=== PATIENT | female | born 1950 | race Caucasian/White ===

== ENCOUNTER 2017-11-29 15:26 | Inpatient (IN) | payer BC, OTHER ==
[~2017-11-29] VITALS: Ht 160 cm; Wt 79.5 kg
[2017-11-29] VITALS (8 sets, daily range): BP systolic 98–123; BP diastolic 60–72; PULSE 107–112; TEMP 36.7; O2SAT 88–98; BMI 29.8
[~2017-11-29 15:26] MED LIST: ADVIN25050 INH; ATOR-26 PO; BUPRTAB51 PO; CALC-354 PO; CLBCRM30 TOP; CMBIN INH; EFFSR150 PO; KETO2SHA TOP; LSN20 PO; METR1GEL3 TOP; MULT-506 PO; OXGN; PRED1SUS3; PRLSR20 PO; SNG10 PO; TIOTCAP INH; TRAZ50TA35 PO; TRIA0.1C20 TOP
[2017-11-29] MEDS ORDERED: ALBUT/IPRATROP 3MG/0.5MG NEB 3 ML VIAL INH STA (15:37)
[2017-11-29] MEDS ORDERED: SODIUM CHLORIDE 0.9% 1000ML 1,000 ML IV STA (15:52)
[2017-11-29] MEDS ORDERED: PIPERACILLIN/TAZOBACTAM 4.5 GM/100ML D5W IV STA (16:15)
[2017-11-29] MEDS ORDERED: SODIUM CHLORIDE 0.9% 1000ML 2,000 ML IV STA (16:20)
[2017-11-29] MEDS ORDERED: LEVAQUIN 750MG / 150ML D5W IV STA (16:20)
[2017-11-29 16:38] LABS: HEMATOCRIT 40.1 % (37-47); HEMOGLOBIN 13.9 g/dL (12.0-16.0); MEAN CELL VOLUME 89.9 fL (80-100); MEAN CORPUSCULAR HEMOGLOBIN 31.2 pg (25-34); MEAN CORPUSCULAR HGB CONC 34.7 g/dl (32-36); MEAN PLATELET VOLUME 10.8 fL (7.4-10.4); PLATELET COUNT 306 K/uL (130-400); RED CELL DISTRIBUTION WIDTH CV 13.6 % (11.5-14.5); RED CELL DISTRIBUTION WIDTH SD 44.7 fL (36.4-46.3); WHITE BLOOD COUNT 34.46 K/uL (4.8-10.8)
--- NOTE | 2017-11-29 16:38 | DIAGNOSTIC IMAGING REPORT ---
CHEST ONE VIEW PORTABLE HISTORY: 67 years-old Female cough eval for pna acute cough with concern for pneumonia COMPARISON: Chest radiograph 11/24/2008, chest CT 12/11/2008 TECHNIQUE: Portable AP view of the chest FINDINGS: Cardiac silhouette is mildly enlarged. Atherosclerosis of the aorta. There is mild bilateral interstitial coarsening without pneumothorax. Large segmental consolidation of the right lung base is noted with associated likely small right pleural effusion. Bones of the chest appear grossly intact. Degenerative changes are seen within the shoulders and spine. IMPRESSION: 1. Large consolidation of the right lung base with right pleural effusion suggests possible pneumonia. Close follow-up is needed to document resolution. 2. Mild bilateral interstitial coarsening suggests pulmonary vascular congestion. The above report was generated using voice recognition software. It may contain grammatical, syntax or spelling errors. Electronically signed by: Bg Buckner M.D. 11/29/2017 4:37 PM Dictated Date/Time: 11/29/2017 4:31 PM
[2017-11-29 16:39] LABS: ALBUMIN 2.3 gm/dl (3.4-5.0); ALKALINE PHOSPHATASE 289 U/L (45-117); ALT/SGPT 58 U/L (12-78); AST/SGOT 38 U/L (15-37); BLOOD UREA NITROGEN 17 mg/dl (7-18); CALCIUM 8.2 mg/dl (8.5-10.1); CARBON DIOXIDE 28 mmol/L (21-32); CREATININE 1.57 mg/dl (0.60-1.20); GLUCOSE 94 mg/dl (70-99); POTASSIUM 3.8 mmol/L (3.5-5.1); SODIUM 130 mmol/L (136-145); TOTAL PROTEIN 6.2 gm/dl (6.4-8.2)
[2017-11-29 17:01] LABS: INFLUENZA A PCR Neg for Influ A (NEG); INFLUENZA B PCR Neg for Influ B (NEG)
[2017-11-29] MEDS ORDERED: [UNRECOGNIZED DRUG - CODE] TOP (17:03)
[2017-11-29] MEDS ORDERED: BUPR150T5 PO ×2 (17:03→17:30)
[2017-11-29] MEDS ORDERED: PRMVC PV (17:03)
[2017-11-29] MEDS ORDERED: SNG10 PO (17:03)
[2017-11-29] MEDS ORDERED: ATV/1 PO (17:03)
[2017-11-29] MEDS ORDERED: MTRG45 TOP (17:03)
[2017-11-29] MEDS ORDERED: EFFSR150 PO (17:03)
[2017-11-29] MEDS ORDERED: LISD30CA4 PO (17:03)
[2017-11-29] MEDS ORDERED: IBUP-103 PO ×2 (17:03)
[2017-11-29] MEDS ORDERED: SPRIN/30 INH (17:03)
[2017-11-29] MEDS ORDERED: ASPI81TA28 PO (17:03)
[2017-11-29] MEDS ORDERED: ADVIN25/60 PO (17:03)
[2017-11-29] MEDS ORDERED: IPRA1AER2 INH (17:03)
[2017-11-29] MEDS ORDERED: FLNIN/ NAE (17:03)
[2017-11-29] MEDS ORDERED: IPRASOL4 INH (17:03)
[2017-11-29] MEDS ORDERED: DSY100 PO (17:03)
[2017-11-29] MEDS ORDERED: ALL100 PO (17:03)
[2017-11-29] MEDS ORDERED: LPT10 PO (17:03)
[2017-11-29] MEDS ORDERED: TRMO115 TOP (17:03)
[2017-11-29] MEDS ORDERED: LISI40TA PO (17:04)
[2017-11-29 17:13] LABS: INR 1.2 (0.9-1.1); PTT PATIENT 33.3 SECONDS (21.0-31.0)
[2017-11-29] MEDS ORDERED: ONDANSETRON INJ 2 MG/ML 2 ML VIAL IV PRN (17:30)
[2017-11-29] MEDS ORDERED: LEVOFLOXACIN / D5W 750 MG in PREMIXED IN D5W 150 ML IV SCH (17:30)
[2017-11-29] MEDS ORDERED: NITROGLYCERIN 0.4 MG SL PER TAB CHARGE SL PRN (17:30)
[2017-11-29] MEDS ORDERED: IPRATROPIUM BROMIDE NEB SOLN 0.02% 2.5 ML VIAL INH PRN (17:30)
[2017-11-29] MEDS ORDERED: LEVALBUTEROL 1.25MG/3ML NEB INH PRN (17:30)
[2017-11-29] MEDS ORDERED: ICU PROTOCOL FOR HYPERGLYCEMIA PRN (17:30)
[2017-11-29] MEDS ORDERED: SODIUM CHLORIDE 0.9% 1000ML 1,000 ML IV SCH (18:00)
[2017-11-29] MEDS ORDERED: PIPERACILL/TAZOBAC CONSULT ACTIVE PRN (18:15)
[2017-11-29] MEDS: LEVALBUTEROL 1.25MG/0.5ML NEB INH SCH (18:53)
[2017-11-29] MEDS: IPRATROPIUM BROMIDE NEB SOLN 0.02% 2.5 ML VIAL INH SCH (18:53)
--- NOTE | 2017-11-29 19:04 | EMERGENCY ROOM VISIT NOTE ---
History Report prepared by Orquidea: Vipul Wall Under the Supervision of: Dr. Humza Pak M.D. First contact with patient: 15:31 Stated Complaint: FLU SYMPTOMS History of Present Illness The patient is a 67 year old female who presents to the Emergency Room with complaints of persistent flu like symptoms for the past 5 days. The patient states that she has a fever, cough, body aches, and a headache. She states her headache is improved since it started 5 days ago. Her body pains are also improved. She is bringing up clear phlegm while coughing. Per the EMS, the patient's heart rates is in the 110s, her blood pressure was in the 80s, her pulse ox was 90% on 4L of oxygen, and her fingertips looked cyanotic. The patient states that she has a history of asthma and COPD, and she is currently a smoker. She uses oxygen at home as needed, and she uses 3-4L. Source of History: patient Onset: 5 days ago Position: other (global) Quality: other (flu like symptoms) Timing: other (persistent) Associated Symptoms: + fevers, + headache, + cough Note: Associated symptoms: Body aches. Review of Systems See HPI for pertinent positives & negatives. A total of 10 systems reviewed and were otherwise negative. Past Medical & Surgical Medical Problems: (1) Asthma (2) COPD (chronic obstructive pulmonary disease) (3) Severe sepsis Social History Smoking Status: Current Every Day Smoker Marital Status: Occupation Status: retired Current/Historical Medications Scheduled Allopurinol (Allopurinol), 100 MG PO DAILY Aspirin (Aspirin Ec), 81 MG PO DAILY Atorvastatin (Lipitor), 10 MG PO DAILY Bupropion Hcl (Bupropion Hcl Xl), 150 MG PO DAILY Calcium Carbonate-Cholecalcife (Caltrate 600+D), 1 TAB PO QAM Clobetasol Propionate (Clobetasol Propionate), 1 APPLN TOP UD Estrogens, Conjugated (Premarin), 1 APPLN PV HS Fluticasone Prop/Salmeterol (Advair Diskus 250/50 60 Dose), 1 PUFF PO BID Fluticasone Propionate (Fluticasone Propionate), 2 SPRAYS ROLDAN DAILY Home O2 Therapy (Oxygen), 2 LITERS NA PRN Ibuprofen Tab (Advil), 400 MG PO PRN UD Ipratropium-Albuterol (Combivent Respimat), 1 PUFF INH BID Lisdexamfetamine Dimesylate (Vyvanse), 30 MG PO DAILY Metronidazole HCl (Metronidazole), 1 APPLN TOP BID Montelukast Sod (Montelukast Sodium), 10 MG PO DAILY Multivitamin (Multivitamin), 1 TAB PO QAM Tiotropium [place] (Spiriva Handihaler), 1 CAP INH DAILY Trazodone HCl (Trazodone HCl), 100 MG PO HS Venlafaxine Hcl (Effexor Extended Rel), 150 MG PO BID Scheduled PRN Ipratropium-Albuterol (Duoneb), 1 TREATMENT INH QID PRN for SOB/Wheezing Ketoconazole (Topical) (Ketoconazole), 1 APPL TOP DAILY PRN for Lorazepam (Ativan), 1 MG PO BID PRN for Anxiety Omeprazole (Prilosec), 20 MG PO DAILY PRN for ACID REFLUX Triamcinolone Acet (Triamcinolone Acetonide), 1 APPLN TOP 2XWK PRN for Allergies Coded Allergies: No Known Allergies (Verified , NKA, 12/06/14) Physical Exam Vital Signs Date Time Temp Pulse Resp B/P (MAP) Pulse Ox O2 Delivery O2 Flow Rate FiO2 11/29/17 16:42 102 18 84/64 100 Nasal Cannula 4.0 11/29/17 16:22 107 18 78/55 92 Nasal Cannula 4.0 11/29/17 15:45 110 11/29/17 15:44 36.4 112 24 77/53 93 Room Air Physical Exam Constitutional: Vital signs reviewed. Eyes: Pupils are equal round reactive to light. Conjunctiva are noninjected. ENT: Pharynx is clear without erythema or exudate. Mucous membranes are dry. Neck supple without meningeal signs. Respiratory: Scattered expiratory wheezing. Crackles at the right base with diminished breath sounds. Cardiovascular: Regular rate and rhythm. No rubs or gallops. GI: Soft, nondistended and nontender. Bowel sounds are present. Musculoskeletal: No peripheral edema. No lower extremity tenderness. Integumentary: No cyanosis. Neurological: The patient is awake and alert. No focal deficits. Psychiatric: Normal affect. Medical Decision & Procedures ER Provider Diagnostic Interpretation: Radiology results as stated below per my review and the radiologist's interpretation: CHEST ONE VIEW PORTABLE HISTORY: 67 years-old Female cough eval for pna acute cough with concern for pneumonia COMPARISON: Chest radiograph 11/24/2008, chest CT 12/11/2008 TECHNIQUE: Portable AP view of the chest FINDINGS: Cardiac silhouette is mildly enlarged. Atherosclerosis of the aorta. There is mild bilateral interstitial coarsening without pneumothorax. Large segmental consolidation of the right lung base is noted with associated likely small right pleural effusion. Bones of the chest appear grossly intact. Degenerative changes are seen within the shoulders and spine. IMPRESSION: 1. Large consolidation of the right lung base with right pleural effusion suggests possible pneumonia. Close follow-up is needed to document resolution. 2. Mild bilateral interstitial coarsening suggests pulmonary vascular congestion. The above report was generated using voice recognition software. It may contain grammatical, syntax or spelling errors. Electronically signed by: Bg Buckner M.D. 11/29/2017 4:37 PM Dictated Date/Time: 11/29/2017 4:31 PM Laboratory Results 11/29/17 15:48 Red Blood Count 4.46, Mean Corpuscular Volume 89.9, Mean Corpuscular Hemoglobin 31.2, Mean Corpuscular Hemoglobin Concent 34.7, Mean Platelet Volume 10.8 11/29/17 15:48 Test 11/29/17 00:00 11/29/17 15:48 11/29/17 16:03 11/29/17 16:20 White Blood Count 34.46 K/uL (4.8-10.8) Red Blood Count 4.46 M/uL (4.2-5.4) Hemoglobin 13.9 g/dL (12.0-16.0) Hematocrit 40.1 % (37-47) Mean Corpuscular Volume 89.9 fL (80-100) Mean Corpuscular Hemoglobin 31.2 pg (25-34) Mean Corpuscular Hemoglobin Concent 34.7 g/dl (32-36) Platelet Count 306 K/uL (130-400) Mean Platelet Volume 10.8 fL (7.4-10.4) RDW Standard Deviation 44.7 fL (36.4-46.3) RDW Coefficient of Variation 13.6 % (11.5-14.5) Neutrophils % (Manual) 85.8 % Lymphocytes % (Manual) 1.7 % Monocytes % (Manual) 2.5 % Metamyelocytes % 9.2 % Myelocytes % 0.8 % Neutrophils # (Manual) 29.57 K/uL (1.4-6.5) Total Absolute Neutrophils 29.57 K/uL (1.4-6.5) Lymphocytes # (Manual) 0.59 K/uL (1.2-3.4) Total Absolute Lymphocytes 0.59 K/uL (1.2-3.4) Monocytes # (Manual) 0.86 K/uL (0.11-0.59) Metamyelocytes # 3.17 K/uL (0-0) Myelocytes # 0.28 K/uL (0-0) Toxic Granulation 2+ Anion Gap 12.0 mmol/L (3-11) Est Creatinine Clear Calc Drug Dose 34.0 ml/min Estimated GFR () 39.1 Estimated GFR (Non- 33.8 BUN/Creatinine Ratio 10.7 (10-20) Calcium Level 8.2 mg/dl (8.5-10.1) Total Bilirubin 1.1 mg/dl (0.2-1) Aspartate Amino Transf (AST/SGOT) 38 U/L (15-37) Alanine Aminotransferase (ALT/SGPT) 58 U/L (12-78) Alkaline Phosphatase 289 U/L (45-117) Troponin I < 0.015 ng/ml (0-0.045) Total Protein 6.2 gm/dl (6.4-8.2) Albumin 2.3 gm/dl (3.4-5.0) Chemistry Specimen Hemolysis Bedside Lactic Acid Venous 5.22 mmol/L (0.90-1.70) Influenza Type A (RT-PCR) Neg for Influ A (NEG) Influenza Type B (RT-PCR) Neg for Influ B (NEG) Test 11/29/17 16:38 Prothrombin Time 12.6 SECONDS (9.0-12.0) Prothromb Time International Ratio 1.2 (0.9-1.1) Activated Partial Thromboplast Time 33.3 SECONDS (21.0-31.0) Partial Thromboplastin Ratio 1.3 Direct Bilirubin 0.4 mg/dl (0-0.2) Laboratory results as reviewed by me. Medications Administered Medications (Trade) Dose Ordered Sig/Debo Route Start Time Stop Time Status Last Admin Dose Admin Albuterol/ Ipratropium (Duoneb) 3 ml NOW STAT INH 11/29/17 15:37 11/29/17 15:39 DC 11/29/17 16:37 3 ML Sodium Chloride 1,000 ml @ 999 mls/hr Q1H1M STAT IV 11/29/17 15:52 11/29/17 16:52 DC 11/29/17 16:00 999 MLS/HR Piperacillin Sod/ Tazobactam Sod (Zosyn Iv) 4.5 gm NOW STAT IV 11/29/17 16:15 11/29/17 16:16 DC 11/29/17 16:25 4.5 GM Sodium Chloride 2,000 ml @ 999 mls/hr Q2H1M STAT IV 11/29/17 16:20 11/29/17 18:20 DC 11/29/17 16:38 999 MLS/HR Levofloxacin (Levaquin / D5W) 750 mg NOW STAT IV 11/29/17 16:20 11/29/17 16:22 DC 11/29/17 16:37 750 MG ECG Per My Interpretation Indication: SOB/dyspnea Rate (beats per minute): 108 Rhythm: sinus tachycardia Findings: other (No ST elevations or PVCs) ED Course 1531: The patient was evaluated in room A2. A complete history and physical exam was performed. 1537: DuoNeb 3ml INH 1552: Sodium Chloride 1000 ml @ 999 mls/hr IV 1556: I reevaluated the and her pressure was 84 systolic. She is getting her liter bolus. 1615: Zosyn 4.5gm IV 1619: I reassessed the patient, and her pressure was 75/52. 1620: Levofloxacin 750mg IV, Sodium Chloride 2000 ml @ 999 mls/hr IV 1639: I discussed the possibility of a central line if she did not respond to fluids, and I discussed the risks and benefits with her. 1642: Her pressure was 84, and she got an itchy rash to the Levaquin infusion, so it was stopped. 1646: I discussed the patient's case with Dr. Torres - [facility] Hospitalist. He is going to evaluate the patient for further treatment and contact the ICU team 1723: I reevaluated the patient, and her pressure was 81/57. She was seen by Dr. Torres, and he states that the patient does not need a central line. He will continue to monitor her in the ICU. She got her 30cc per kilo os normal saline. Medical Decision This is a 67-year-old female presents with shortness of breath and flulike symptoms. Differential diagnosis includes sepsis, pneumonia, bronchitis, influenza, COPD exacerbation. I did perform a limited focused review of portions of the patient's old chart on the electronic medical record. The patient has had no recent pertinent visits to this hospital. I did evaluate the patient as noted above. The patient is presenting with shortness of breath and flulike symptoms. IV access was established. The patient was placed on a continuous surveillance monitor. She is hypotensive. Fluid resuscitation was initiated. He was given a total of 30 cc/kg IV of normal saline. Blood cultures were obtained. I did order and personally review the patient's 12-lead EKG and chest x-ray as described above. She does have a right -sided pneumonia. I did treat her with IV Zosyn and Levaquin. Patient developed a reaction to Levaquin. She had a rash to the arm orifice infusing which was itchy. The Levaquin was stopped. She did receive the Zosyn. I did order and review the patient's blood work as noted in the electronic medical record. Her white blood cell count is significantly elevated. She also has an elevated lactic acid. She was treated with a DuoNeb as well. I did reassess the patient multiple times. I did discuss the test results with her. I did discuss the case with the hospitalist who admitted her to the ICU. Medication Reconcilliation Current Medication List: was personally reviewed by me Blood Pressure Screening Patient's blood pressure: Low blood pressure Consults Time Called: 1642 Consulting Physician: Dr. Melissa Chavez Hospitalist Returned Call: [phone] I discussed the patient's case with Dr. Melissa Guzman. He is going to evaluate the patient for further treatment and contact the ICU team. Impression Primary Impression: Sepsis Additional Impressions: Septic shock Pneumonia involving right lung COPD exacerbation Critical Care I have personally spent greater than 43 minutes of critical care time in the direct management of this patient. This includes bedside care, interpretation of diagnostic studies, and testing, discussion with consultants, patient, and family members, and other required patient management activities. This 43 minutes is in excess of all separately billable procedures. Scribe Attestation The scribe's documentation has been prepared under my direct and personally reviewed by me in its entirety. I confirm that the note above accurately reflects all work, treatment, procedures, and medical decision making performed by me. Departure Information Dispostion Being Evaluated By Hospitalist Prescriptions Bupropion Hcl (BUPROPION HCL XL) 150 Mg Tab 150 MG PO DAILY, #30 Prov: Nikolay Torres MD 11/29/17 Referrals Tesfaye Zuniga D.O. (PCP) Problem Qualifiers Primary Impression: Sepsis Sepsis type: sepsis due to unspecified organism Qualified Codes: A41.9 - Sepsis, unspecified organism Additional Impressions: Pneumonia involving right lung Pneumonia type: due to unspecified organism Lung location: lower lobe of lung Qualified Codes: J18.1 - Lobar pneumonia, unspecified organism
--- NOTE | 2017-11-29 19:16 | Critical Care Consultation ---
Critical Care Consultation Date of Consultation: Nov 29, 2017. Attending Physician: Nikolay Torres MD Reason for Consultation: Sepsis secondary to PNA History of Present Illness Mirna Cronin is a 67yo female with CKD III, HTN, and severe COPD on PRN home O2 ( 3-4L) who presented to the ED after a week of progressive illness. Pt states about a week ago she began feeling viral symptoms fever, chills, headache and muscle aches. About Thursday of this week these symptoms improved. However, after about a day she began using her respiratory regimen and requiring more O2 at home and feeling more fatigued. Pt does have productive cough most clear to yellow with occasional red spots in it. She came in today after feeling like she wasn't capable of getting out of bed this morning. She was found to have a lactic acid of 5.22, WBC 34.46, Gap 12, Cr 1.57, and multiple LFT disturbances. Repeat lactic acid after resuscitation was 3.2. In the ED pt was tachycardic with HR in the one teens. She required 4L nasal cannula to hold 90% SpO2. SBP was in the 80s. Per ED report, pts digits appeared cyanotic. Pt received Duoneb, , 3L NSS Bolus, and Zosyn. Pt was started on Levaquin that was stopped shortly after administration due to drug reaction at IV site (Red, itchy rash). CXR demonstrated large right lower lobe consolidation with pleural effusion. Pt was admitted to the ICU and started on Doxycycline. The patient denies weight loss, dizziness, numbness, change in vision, sore throat, chest pain, palpitations, awareness of tachyarrhythmias, leg swelling, nausea, vomiting, bloody stools, diarrhea, constipation, abdominal pain. Urine has been more concentrated with an odor lately, but no dysuria, urgency, or frequency noted. Past Medical/Surgical History Medical Problems: Asthma COPD (chronic obstructive pulmonary disease) Dyslipidemia Severe sepsis CKD III HTN Rosacea Lichen GERD Gouty Arthropathy Benign neoplasm of the colon Surgical History: Colonoscopy Right MOD. Radical mastoidectomy 1963 Right type III tympanoplasty with malleus head and plastic middle ear insert 1974 Social History Smoking Status: Current Every Day Smoker Marital Status: Occupation Status: retired Allergies Coded Allergies: No Known Allergies (Verified , NKA, 12/06/14) Home Medications Scheduled Allopurinol (Allopurinol), 100 MG PO DAILY Aspirin (Aspirin Ec), 81 MG PO DAILY Atorvastatin (Lipitor), 10 MG PO DAILY Bupropion Hcl (Bupropion Hcl Xl), 150 MG PO DAILY Calcium Carbonate-Cholecalcife (Caltrate 600+D), 1 TAB PO QAM Clobetasol Propionate (Clobetasol Propionate), 1 APPLN TOP UD Estrogens, Conjugated (Premarin), 1 APPLN PV HS Fluticasone Prop/Salmeterol (Advair Diskus 250/50 60 Dose), 1 PUFF PO BID Fluticasone Propionate (Fluticasone Propionate), 2 SPRAYS ROLDAN DAILY Home O2 Therapy (Oxygen), 2 LITERS NA PRN Ibuprofen Tab (Advil), 400 MG PO PRN UD Ipratropium-Albuterol (Combivent Respimat), 1 PUFF INH BID Lisdexamfetamine Dimesylate (Vyvanse), 30 MG PO DAILY Metronidazole HCl (Metronidazole), 1 APPLN TOP BID Montelukast Sod (Montelukast Sodium), 10 MG PO DAILY Multivitamin (Multivitamin), 1 TAB PO QAM Tiotropium [place] (Spiriva Handihaler), 1 CAP INH DAILY Trazodone HCl (Trazodone HCl), 100 MG PO HS Venlafaxine Hcl (Effexor Extended Rel), 150 MG PO BID Scheduled PRN Ipratropium-Albuterol (Duoneb), 1 TREATMENT INH QID PRN for SOB/Wheezing Ketoconazole (Topical) (Ketoconazole), 1 APPL TOP DAILY PRN for Lorazepam (Ativan), 1 MG PO BID PRN for Anxiety Omeprazole (Prilosec), 20 MG PO DAILY PRN for ACID REFLUX Triamcinolone Acet (Triamcinolone Acetonide), 1 APPLN TOP 2XWK PRN for Current Inpatient Medications Current Inpatient Medications Medications (Trade) Dose Ordered Sig/Debo Route Start Time Stop Time Status Last Admin Dose Admin Heparin Sodium (Porcine) (Heparin Sq 5000 Unit/0.5ml) 5,000 unit Q8 SQ 11/29/17 18:30 12/29/17 18:29 Sodium Chloride 1,000 ml @ 500 mls/hr Q2H IV 11/29/17 18:00 11/29/17 19:59 11/29/17 18:37 500 MLS/HR Acetaminophen (Tylenol Tab) 650 mg Q4H PRN PO 11/29/17 17:30 12/29/17 17:29 Nitroglycerin (Nitrostat Tab) 0.4 mg UD PRN SL 11/29/17 17:30 12/29/17 17:29 Ipratropium [place] (Atrovent 0.02% 0.5MG/2.5ML Neb) 0.5 mg Q2R PRN INH 11/29/17 17:30 12/29/17 17:29 Levalbuterol (Xopenex 1.25MG/ 3ML Neb) 1.25 mg Q2R PRN INH 11/29/17 17:30 12/29/17 17:29 Ondansetron HCl (Zofran Inj) 4 mg Q6H PRN IV 11/29/17 17:30 12/29/17 17:29 Pantoprazole Sodium 40 mg/ Syringe 10 ml @ 5 mls/min DAILY IV 11/30/17 09:00 12/30/17 08:59 Levalbuterol (Xopenex 1.25MG/ 0.5ML Neb) 1.25 mg QIDR INH 11/29/17 20:00 12/29/17 19:59 11/29/17 18:53 1.25 MG Ipratropium [place] (Atrovent 0.02% 0.5MG/2.5ML Neb) 0.5 mg QIDR INH 11/29/17 20:00 12/29/17 19:59 11/29/17 18:53 0.5 MG Miscellaneous Information (Icu Protocol For Hyperglycemia) 1 ea PRN PRN N/A 11/29/17 17:30 12/01/17 17:29 Allopurinol (Zyloprim Tab) 100 mg DAILY PO 11/30/17 09:00 12/30/17 08:59 Aspirin (Ecotrin Tab) 81 mg DAILY PO 11/30/17 09:00 12/30/17 08:59 Atorvastatin Calcium (Lipitor Tab) 10 mg DAILY PO 11/30/17 09:00 12/30/17 08:59 Lorazepam (Ativan Tab) 1 mg BID PRN PO 11/29/17 17:30 12/29/17 17:29 Metronidazole HCl (Metrogel Topical Gel) 1 appln BID TOP 11/29/17 21:00 12/09/17 20:59 Montelukast Sodium (Singulair Tab) 10 mg DAILY PO 11/30/17 09:00 12/30/17 08:59 Multivitamins (Multivitamin Tab) 1 tab QAM PO 11/30/17 09:00 12/30/17 08:59 Trazodone HCl (Desyrel Tab) 100 mg HS PO 11/29/17 21:00 12/29/17 20:59 Venlafaxine HCl (effeXOR EXTENDED REL CAP) 150 mg BID PO 11/29/17 21:00 12/29/17 20:59 Miscellaneous Information (Order Awaiting Action) 1 ea QS N/A 11/30/17 00:00 12/30/17 00:00 Bupropion HCl (Wellbutrin-Xl Tab) 150 mg DAILY PO 11/30/17 09:00 12/30/17 08:59 Sodium Chloride 1,000 ml @ 200 mls/hr Q5H IV 11/29/17 19:00 12/29/17 18:59 Piperacillin Sod/ Tazobactam Sod 4.5 gm/Dextrose 120 ml @ 28.75 mls/ hr Q8H IV 11/29/17 22:00 12/09/17 15:59 Miscellaneous Information (Consult) 1 ea UD PRN N/A 11/29/17 18:15 12/29/17 18:14 Doxycycline Hyclate 100 mg/ Dextrose 110 ml @ 50 mls/hr BID IV 11/29/17 18:30 12/06/17 18:29 Future hold Nicotine (Nicoderm Cq 14MG Patch) 1 patch QAM TD 11/30/17 09:00 12/30/17 08:59 Miscellaneous (Remove Nicoderm Patch) 1 ea HS N/A 11/30/17 21:00 12/30/17 20:59 Review of Systems 12 systems reviewed and negative other than previously mentioned in the HPI. Physical Exam Date Time Temp Pulse Resp B/P (MAP) Pulse Ox O2 Delivery O2 Flow Rate FiO2 11/29/17 18:35 36.7 109 32 118/65 98 Nasal Cannula 2.0 11/29/17 18:07 102 18 84/59 98 11/29/17 17:45 105 18 83/60 100 Nasal Cannula 4.0 11/29/17 16:42 102 18 84/64 100 Nasal Cannula 4.0 11/29/17 16:22 107 18 78/55 92 Nasal Cannula 4.0 11/29/17 15:45 110 11/29/17 15:44 36.4 112 24 77/53 93 Room Air Vital Signs - as noted Laboratory Data - as noted Physical Exam: General - NAD Eyes - PERRL, EOMI No icterus, gaze conjugate ENT - Mucosa dry, no lesions or candidiasis Neck - Supple, trachea midline, no masses or lymphadenopathy, no JVD or bruits Lungs - Tachypneic No paradoxical chest wall movement, clear to auscultation bilaterally, diminished at right base, no wheezes, rales, or rhonchi Heart - Sinus Tachycardia, No murmur, rubs, clicks, or gallops appreciated Abdomen - minimal BS present, no bruits noted, tympanic to percussion, soft, nontender, nondistended, no organomegaly Extremities - No edema, pedal pulses intact Neuro - A&OX4 Strength extremities equal and appropriate bilaterally Reflexes: Bicep, brachioradialis, patellar, and plantar normal and equal CN:PERRL, EOMI, no facial asymmetry, uvula/tongue midline Laboratory Results Last 24 Hours Test 11/29/17 00:00 11/29/17 15:48 11/29/17 16:03 11/29/17 16:20 Urine Color DK YELLOW Urine Appearance CLOUDY Urine pH 5.0 Urine Specific [place] 1.011 Urine Protein NEG Urine Glucose (UA) NEG Urine Ketones NEG Urine Occult Blood NEG Urine Nitrite POS Urine Bilirubin NEG Urine Urobilinogen NEG Urine Leukocyte Esterase MODERATE Urine WBC (Auto) /hpf Urine RBC (Auto) /hpf Urine Hyaline Casts (Auto) /lpf Urine Epithelial Cells (Auto) /lpf Urine Bacteria (Auto) Urine Renal Epithelial Cells /lpf Urine Pathogenic Casts /lpf White Blood Count 34.46 K/uL Red Blood Count 4.46 M/uL Hemoglobin 13.9 g/dL Hematocrit 40.1 % Mean Corpuscular Volume 89.9 fL Mean Corpuscular Hemoglobin 31.2 pg Mean Corpuscular Hemoglobin Concent 34.7 g/dl Platelet Count 306 K/uL Mean Platelet Volume 10.8 fL RDW Standard Deviation 44.7 fL RDW Coefficient of Variation 13.6 % Neutrophils % (Manual) 85.8 % Lymphocytes % (Manual) 1.7 % Monocytes % (Manual) 2.5 % Metamyelocytes % 9.2 % Myelocytes % 0.8 % Neutrophils # (Manual) 29.57 K/uL Total Absolute Neutrophils 29.57 K/uL Lymphocytes # (Manual) 0.59 K/uL Total Absolute Lymphocytes 0.59 K/uL Monocytes # (Manual) 0.86 K/uL Metamyelocytes # 3.17 K/uL Myelocytes # 0.28 K/uL Toxic Granulation 2+ Sodium Level 130 mmol/L Potassium Level 3.8 mmol/L Chloride Level 90 mmol/L Carbon Dioxide Level 28 mmol/L Anion Gap 12.0 mmol/L Blood Urea Nitrogen 17 mg/dl Creatinine 1.57 mg/dl Est Creatinine Clear Calc Drug Dose 34.0 ml/min Estimated GFR () 39.1 Estimated GFR (Non- 33.8 BUN/Creatinine Ratio 10.7 Random Glucose 94 mg/dl Calcium Level 8.2 mg/dl Total Bilirubin 1.1 mg/dl Direct Bilirubin mg/dl Aspartate Amino Transf (AST/SGOT) 38 U/L Alanine Aminotransferase (ALT/SGPT) 58 U/L Alkaline Phosphatase 289 U/L Troponin I < 0.015 ng/ml Total Protein 6.2 gm/dl Albumin 2.3 gm/dl Chemistry Specimen Hemolysis Bedside Lactic Acid Venous 5.22 mmol/L Influenza Type A (RT-PCR) Neg for Influ A Influenza Type B (RT-PCR) Neg for Influ B Test 11/29/17 16:38 Prothrombin Time 12.6 SECONDS Prothromb Time International Ratio 1.2 Activated Partial Thromboplast Time 33.3 SECONDS Partial Thromboplastin Ratio 1.3 Direct Bilirubin 0.4 mg/dl Diagnostic Results CHEST ONE VIEW PORTABLE HISTORY: 67 years-old Female cough eval for pna acute cough with concern for pneumonia COMPARISON: Chest radiograph 11/24/2008, chest CT 12/11/2008 TECHNIQUE: Portable AP view of the chest FINDINGS: Cardiac silhouette is mildly enlarged. Atherosclerosis of the aorta. There is mild bilateral interstitial coarsening without pneumothorax. Large segmental consolidation of the right lung base is noted with associated likely small right pleural effusion. Bones of the chest appear grossly intact. Degenerative changes are seen within the shoulders and spine. IMPRESSION: 1. Large consolidation of the right lung base with right pleural effusion suggests possible pneumonia. Close follow-up is needed to document resolution. 2. Mild bilateral interstitial coarsening suggests pulmonary vascular congestion. The above report was generated using voice recognition software. It may contain grammatical, syntax or spelling errors. Electronically signed by: Bg Buckner M.D. 11/29/2017 4:37 PM Dictated Date/Time: 11/29/2017 4:31 PM Assessment & Plan (1) UTI (urinary tract infection) (2) Abnormal LFTs (3) Tachycardia (4) Septic shock (5) COPD exacerbation (6) Pneumonia involving right lung (7) TARA (acute kidney injury) (8) CKD (chronic kidney disease) stage 3, GFR 30-59 ml/min (9) Leukocytosis (10) Dyslipidemia (11) Hx of essential hypertension Reason Critically Ill: Patient is an 67-year-old female who is transferred to the ICU for septic shock in the setting of RLL PNA and UTI requiring chronic O2 to maintain adequate saturations. Lactic Acid greater than 5 and SBP in the 80s PLAN: Resp: * Patient does use 3-4 L as needed at home; however, has been using it chronically over the past few days of illness. * Severe COPD : goal SPO2 88-92%, titrate as indicated * Right lower lobe pneumonia * Patient is clearing sputum/expectorant, monitor for need of percussion * Will provide flutter valve * Continue Zosyn and doxycycline for pulmonary source; first day of treatment November 29 * Continue respiratory regimen including Xopenex and Atrovent * Continue home respiratory regimen including Singulair * Repeat CXR as needed Fluids/Renal: * TARA CKD III * Baseline Cr 1.1, today 1.5 * Continue fluid resuscitation; NSS @ 200 * Trend PRP daily * Limit Renally toxic medications * UTI: * Catheter UA demonstrates positive leukocytes esterase, positive nitrates, +1 bacteria * Reflex Culture ordered * Strict I&Os * Schmidt to gravity Neuro: * Continue home medications including * Effexor, Trazodone, Ativan, and Wellbutrin * Neuro checks per protocol * No pain reported, trend pain scale CV: * Sinus Tachycardia noted on telemetry * Continue to monitor in. Normal response in the setting of infection and hypotension * Troponin Neg x 1 * Reviewed EKG: without acute ischemia, QTC 455 * Monitor on telemetry * Hypotension: * in the setting of multiple infections * Aggressive fluid resuscitation > 30cc/kg * NSS @ 200 now * trending lactic acid * Resolved without need of vasopressors * SBP 110-120's currently * Continue Statin ID: * ABX: Zosyn and Doxycycline (first day of administration 11/29) * Started Levaquin and stopped 2/2 site reaction during administration * Lactic Acid improving * Monitor daily CBC * Trend fever curve GI/Nutrition: * Hx of GERD: Continue PPI * LFTs elevated in the setting of infection and hypotension * Repeat lab pending * Monitor Closely: Coags abnormal, Plts WNL * Pt without RUQ abd pain * Full liquid diet now, pts pressure hypotension resolved without need of vasopressors Heme: * PT/INR, PTT prolonged without use of anticoagulation medications chronically, plts WNL. * Will monitor; Repeat lab and trend * DVT Prophylaxis: SCDs and Heparin SQ ordered Endocrine: * No hx of DM * Accu-Checks per protocol, started insulin infusion for 2 blood sugars greater than 180 * No hx of Thyroid dz Access: Maintain 2 (18g) sites Critical Care Time: 60 Minutes; This time is exclusive of all separately billable procedures. Thank you for involving us in the care of this patient. Please refer to Dr. Romaine Oviedo's addendum for further recommendations. Problem Qualifiers (1) Pneumonia involving right lung: Pneumonia type: due to unspecified organism Lung location: lower lobe of lung Qualified Codes: J18.1 - Lobar pneumonia, unspecified organism
--- NOTE | 2017-11-29 19:43 | Progress Note ---
Progress Note Post Crystalloid Evaluation Date: Nov 29, 2017 Time: 19:40 Subjective resting comfortably feeling slightly better still sob denies any pain hemodynamics improving Physical Exam Vital Signs: Vital Signs Date Time Temp Pulse Resp B/P (MAP) Pulse Ox O2 Delivery O2 Flow Rate FiO2 11/29/17 18:35 36.7 109 32 118/65 98 Nasal Cannula 2.0 Lungs: chest non-tender, normal breath sounds, no accessory muscle use, + rhonchi Heart: no murmur, normal peripheral pulses, + tachycardia Peripheral Pulse: Normal Capillary Refill: Normal (less than 2 seconds) Skin: Unremarkable Assessment & Plan Presence of: Severe Sepsis severe sepsis Right sided pneumonia POC lactic acid 5 on presentation awaiting repeat lactic acid SBP on presentation in 70's BP improved after fluid resuscitation developed rash for levaquin on iv zosyn and doxycyline currently hemodynamics improving continue to monitor in ICU copd ex will give dose of solumedrol and monitor on nebs
--- NOTE | 2017-11-29 19:45 | HISTORY & PHYSICAL EXAMINATION ---
DATE OF ADMISSION: 11/29/2017 CHIEF COMPLAINT: Sepsis, pneumonia. HISTORY OF PRESENT ILLNESS: This is a 67-year-old female with past medical history significant for chronic kidney disease stage III, COPD severe, hypertension, gout, GERD, hyperlipidemia, history of tympanoplasty, history of prior radical mastoidectomy in 1962, history of rosacea presents with generalized weakness and found to be in severe sepsis/septic shock. The patient says since last Thursday, she was not feeling well, initially started with headaches and some mild fever that has gone but she has on and off right sided chest pain with generalized weakness, not feeling well and she came to the ER and found to be hypotensive and found to have pneumonia and severe sepsis. The patient denies any headache now. She was dizzy at home. Denies any blurred visions. No earache. No ear drainage. She has some nasal congestion, no sore throat, no difficulty swallowing. Has cough with whitish yellow phlegm. Denies any nausea, vomiting. Appetite is okay. No abdominal pain. Normal bowel and bladder movements. No blood in the urine, no blood in stool. No skin rash, no swelling in the legs. In the ER, while she was getting Levaquin, she developed rash and the Levaquin was stopped. The patient received Levaquin for several days in 2008 for COPD exacerbation. Currently resting comfortably and blood pressure is improving with IV fluids. ALLERGIES: No known allergies but possibly FOR Levaquin WITH RASH DEVELOPMENT . PAST MEDICAL HISTORY: As mentioned above. PAST SURGICAL HISTORY: Colonoscopy with biopsy. She had right mastectomy and right type 3 tympanoplasty. MEDICATIONS: The patient is on DuoNebs 4 times a day, aspirin enteric coated 81 mg p.o. daily, Lipitor 10 mg p.o. daily, Wellbutrin 150 mg p.o. daily, calcium carbonate, vitamin D tablet daily, Flonase 50 mcg 2 sprays into each nostril daily, Advil 400 mg at bedtime with food , multivitamin tablet daily, omeprazole 20 mg p.r.n., oxygen 2 liters via nasal cannula at night while sleeping, Spiriva 18 mcg inhalation daily, trazodone 100 mg p.o. daily, Vynase 30 mg p.o. daily, allopurinol 100 mg p.o. daily, Advair Diskus 250/50 mcg 1 puff b.i.d., Combivent Respimat 1 puff 4 times daily, Ativan 1 mg p.o. b.i.d. p.r.n., Singulair 10 mg p.o. daily. FAMILY HISTORY: Significant for mother had arthritis, cancer. Father had heart disorder and asthma. Father at age of 77. Mother at age of 51. SOCIAL HISTORY: Smokes 1 pack a day for last 33 years. No alcohol use, no drug use. REVIEW OF SYMPTOMS: As per HPI. Rest of review of systems negative. PHYSICAL EXAMINATION: GENERAL: The patient is of moderate build. Mild distress respiratory. VITAL SIGNS: Temperature 36.4, pulse 112, respiratory rate 24, blood pressure when she came in was 77/53, currently 84/64, oxygen 100% on 4 liters. HEENT: No pallor, no icterus. Pupils equal, round, and react to light. Oral mucosa dry. NECK: No JVD, no neck masses, no carotid bruits. CARDIOVASCULAR: S1, S2 heard. Tachycardia. No murmurs. RESPIRATORY SYSTEM: Normal AP diameter. No accessory muscle use. Mild bibasilar crackles. No wheezing. ABDOMEN: Soft, bowel sounds present. Nontender. No distention. CENTRAL NERVOUS SYSTEM: Cranial nerves II-XII grossly intact. Nonfocal. EXTREMITIES: No edema, no erythema. LABORATORIES: Sodium 130, potassium 3.8, chloride 90, bicarbonate 28, BUN 17, creatinine 1.5, serum glucose 94. Point of care lactic acid is 5.2, calcium 8.2, total bilirubin 1.1, AST 38, ALT 28, alkaline phosphatase is 289. Troponin I less than 0.015. WBC 34, hemoglobin 13.9, hematocrit at 40.1, platelets 306. PT 12.6, INR 1.2, APTT 33.3. Negative for influenza, PCR. Chest x-ray shows large consolidation at the right lung base with right pleural effusion suggest possible pneumonia, mild bilateral interstitial coarsening suggest pulmonary vascular congestion. EKG: Shows sinus tachycardia with rate of 108, no significant change from previous EKG. ASSESSMENT AND PLAN: This is a 67-year-old female who presents with severe sepsis/septic shock possibly from pneumonia. 1. Severe sepsis/septic shock, mostly from community acquired pneumonia - large right-sided pneumonia on the x-ray. White count of 34,000, tachycardia, hypotension, point of care lactic acid of 5.2. The patient has 2 peripheral lines. On aggressive IV fluids. Development of rash with Levaquin will continue with iv Zosyn and Doxycycline. Follow the cultures. We will follow repeat lactic acid in 6 hours and close monitoring in the ICU. Critical care notified. 2. acute kidney failure and chronic kidney disease stage III, baseline creatinine about 1.1, creatinine today at 1.5, on IV fluids. We follow the labs in a.m. 3. History of gastroesophageal reflux disease, proton pump inhibitor. 4. History of chronic obstructive pulmonary disease, does not seem to be in exacerbation at this time. We hold home nebs, Spiriva and Advair. We will place her on Xopenex around the clock and p.r.n. and monitor. 5. History of gout on allopurinol. 6. History of hyperlipidemia, on statin. 7. Deep vein thrombosis prophylaxis, SCDs and heparin subQ. DISPOSITION: Admit to Critical Care. Admit to ICU. Total critical care time 45 minutes. Level 1 full code. MTDD
[2017-11-29] MEDS: HEPARIN SOD 5000 UNIT/0.5 ML CARP SQ SCH (19:56)
[2017-11-29] MEDS ORDERED: METHYLPREDNISOLONE IV 40 MG in SYRINGE 0 ML IV ONE (20:00)
[2017-11-29] MEDS: SODIUM CHLORIDE 0.9% 1000ML 1,000 ML IV SCH (20:21)
[2017-11-29] MEDS: TRAZODONE HCL 100 MG TAB PO SCH (20:24)
[2017-11-29] MEDS: VENLAFAXINE HCL XR 150 MG CAPXR PO SCH (20:25)
[2017-11-29] MEDS: DOXYCYCLINE IV 100 MG in DEXTROSE 5% 100ML 100 ML IV SCH (20:25)
[2017-11-29] MEDS: METRONIDAZOLE 0.75% TOPICAL GEL 45 GM TUBE TOP SCH (20:26)
[2017-11-29] MEDS: PIPERACILL/TAZOBAC IV 4.5 GM in DEXTROSE 5% 100ML 100 ML IV SCH (21:56)
[2017-11-29] MEDS: LORAZEPAM 1 MG TAB PO PRN (22:32)
[2017-11-29 22:50] LABS: HEMATOCRIT 36.3 % (37-47); HEMOGLOBIN 12.3 g/dL (12.0-16.0); MEAN CELL VOLUME 89.2 fL (80-100); MEAN CORPUSCULAR HEMOGLOBIN 30.2 pg (25-34); MEAN CORPUSCULAR HGB CONC 33.9 g/dl (32-36); MEAN PLATELET VOLUME 10.4 fL (7.4-10.4); PLATELET COUNT 282 K/uL (130-400); RED CELL DISTRIBUTION WIDTH CV 13.7 % (11.5-14.5); RED CELL DISTRIBUTION WIDTH SD 44.8 fL (36.4-46.3); WHITE BLOOD COUNT 27.39 K/uL (4.8-10.8)
[2017-11-29 22:59] LABS: INR 1.1 (0.9-1.1); PTT PATIENT 32.4 SECONDS (21.0-31.0)
[2017-11-29 23:10] LABS: ALBUMIN 1.8 gm/dl (3.4-5.0); CALCIUM 7.8 mg/dl (8.5-10.1); CREATININE 1.12 mg/dl (0.60-1.20); POTASSIUM 3.7 mmol/L (3.5-5.1)
[2017-11-29 23:13] LABS: TOTAL PROTEIN 6.1 gm/dl (6.4-8.2)
[2017-11-30] VITALS (23 sets, daily range): BP systolic 90–147; BP diastolic 58–101; PULSE 67–116; TEMP 36.2–36.6; O2SAT 87–96; Ht 160 cm; Wt 79.5 kg
[2017-11-30] MEDS: SODIUM CHLORIDE 0.9% 1000ML 1,000 ML IV SCH ×3 (01:33→09:42)
[2017-11-30] MEDS: PIPERACILL/TAZOBAC IV 4.5 GM in DEXTROSE 5% 100ML 100 ML IV SCH ×3 (05:37→22:38)
[2017-11-30] MEDS: HEPARIN SOD 5000 UNIT/0.5 ML CARP SQ SCH ×3 (05:39→22:40)
[2017-11-30 06:04] LABS: HEMATOCRIT 33.6 % (37-47); HEMOGLOBIN 11.2 g/dL (12.0-16.0); MEAN CELL VOLUME 90.3 fL (80-100); MEAN CORPUSCULAR HEMOGLOBIN 30.1 pg (25-34); MEAN CORPUSCULAR HGB CONC 33.3 g/dl (32-36); MEAN PLATELET VOLUME 10.4 fL (7.4-10.4); PLATELET COUNT 280 K/uL (130-400); RED CELL DISTRIBUTION WIDTH CV 13.8 % (11.5-14.5); RED CELL DISTRIBUTION WIDTH SD 45.7 fL (36.4-46.3)
[2017-11-30 06:19] LABS: BASO % 0.1 %; BASO ABS # 0.03 K/uL (0-0.2); EOS ABS # 0.01 K/uL (0-0.5); IG# 1.13 K/uL (0.00-0.02); LYMPH % 2.1 %; LYMPH ABS # 0.65 K/uL (1.2-3.4); MONO % 2.6 %; MONO ABS # 0.79 K/uL (0.11-0.59); NEUT % 91.5 %; NEUT ABS # 27.69 K/uL (1.4-6.5)
[2017-11-30 06:24] LABS: ALBUMIN 1.8 gm/dl (3.4-5.0); CALCIUM 8.1 mg/dl (8.5-10.1); CREATININE 0.97 mg/dl (0.60-1.20); POTASSIUM 4.1 mmol/L (3.5-5.1)
[2017-11-30 06:27] LABS: PHOSPHORUS 4.5 mg/dl (2.5-4.9); TOTAL PROTEIN 5.8 gm/dl (6.4-8.2)
--- NOTE | 2017-11-30 07:53 | DIAGNOSTIC IMAGING REPORT ---
CHEST ONE VIEW PORTABLE HISTORY: PNEUMONIA COMPARISON: Chest 11/29/2017. FINDINGS: No pneumothorax. The heart is mildly enlarged. Mild interstitial and vascular thickening has slight progressed. Moderate right pleural effusion and right basilar densities persist. Right perihilar hazy airspace opacity is again noted. Trace left pleural effusion. A few linear densities the left lung base. IMPRESSION: 1. Suspect superimposed mild pulmonary edema. 2. Moderate right pleural effusion/consolidation persists. 3. Cardiomegaly. Electronically signed by: Van Hope M.D. 11/30/2017 7:51 AM Dictated Date/Time: 11/30/2017 7:48 AM
[2017-11-30] MEDS: VYVANSE: ORDER AWAITING ACTION SCH ×3 (08:00→15:19)
[2017-11-30] MEDS: LEVALBUTEROL 1.25MG/0.5ML NEB INH SCH ×4 (08:33→20:09)
[2017-11-30] MEDS: IPRATROPIUM BROMIDE NEB SOLN 0.02% 2.5 ML VIAL INH SCH ×4 (08:33→20:09)
[2017-11-30] MEDS: PANTOprazole INJ 40 MG in SYRINGE 0 ML IV SCH (09:38)
[2017-11-30] MEDS: DOXYCYCLINE IV 100 MG in DEXTROSE 5% 100ML 100 ML IV SCH ×2 (09:38→20:28)
[2017-11-30] MEDS: ATORVASTATIN 10 MG TAB PO SCH (09:39)
[2017-11-30] MEDS: BuPROPion XL 150 MG TABCR PO SCH (09:39)
[2017-11-30] MEDS: ASPIRIN 81 MG ECTAB PO SCH (09:39)
[2017-11-30] MEDS: MONTELUKAST SOD 10 MG TAB PO SCH (09:39)
[2017-11-30] MEDS: VENLAFAXINE HCL XR 150 MG CAPXR PO SCH ×2 (09:39→20:28)
[2017-11-30] MEDS: ALLOPURINOL 100 MG TAB PO SCH (09:39)
[2017-11-30] MEDS: MULTIVITAMIN TAB PO SCH (09:40)
[2017-11-30] MEDS: NICOTINE 14 MG/24 HR TDSY TD SCH (09:40)
[2017-11-30] MEDS: METRONIDAZOLE 0.75% TOPICAL GEL 45 GM TUBE TOP SCH ×2 (09:41→20:30)
[2017-11-30] MEDS ORDERED: NURSING VERBAL MED ORDER ONE (09:45)
[2017-11-30] MEDS ORDERED: OPTIRAY 320 IV PRN (10:30)
[2017-11-30] MEDS: MAGNESIUM SULFATE 1GM / D5W 1 GM in PREMIXED IN D5W 100 ML IV SCH ×2 (13:14→15:20)
--- NOTE | 2017-11-30 14:22 | DIAGNOSTIC IMAGING REPORT ---
CHEST CT WITH CONTRAST CT DOSE: 516.64 mGycm HISTORY: Follow-up study in a patient with right lower lobe pneumonia and history of tobacco abuse RLL PNA, pleurarl effusion; hx of smoking TECHNIQUE: Multiaxial CT images of the chest were performed following the intravenous administration of contrast. A dose lowering technique was utilized adhering to the principles of ALARA. COMPARISON: Chest radiograph 11/30/2017, chest CT 12/11/2008 FINDINGS: 6 mm nodule the posterior right thyroid lobe. Right hilar adenopathy is noted measuring up to 1.5 x 2.1 cm. Right paratracheal lymph nodes measure up to 7 mm. Prevascular lymph nodes measure up to 9 mm. Mildly prominent nonenlarged supraclavicular lymph nodes are seen measuring up to 5 mm. Heart is mildly enlarged without pericardial effusion. Coronary arterial disease. Calcification of the aortic annulus with moderate calcification of the thoracic aorta and proximal great vessels. The pulmonary arterial tree is mildly dilated with the main pulmonary artery measuring 3.1 cm transversely. No definite focal filling defects identified to suggest pulmonary thromboembolic disease. Small right and trace left pleural effusions. No pneumothorax. Bilateral interlobular septal thickening is noted with patchy multifocal groundglass opacities seen bilaterally, predominantly within a perihilar and upper lobe predominant distribution. Minimal dependent consolidation of the left lung base suggest atelectasis. There is extensive airspace consolidation throughout the right lower lobe which is nearly completely opacified with only minimal aerated lung seen within the lateral basal segment, image 192 of series 4. There are central air bronchograms throughout the consolidation. There is minimal enhancing consolidation at the level the right lung base compatible with atelectasis. Additionally, there is near complete opacification of the right middle lobe with central air bronchograms. No obstructing endobronchial lesions are identified. 5 mm solid nodule of the apical segment right upper lobe, image 73 series 4. No acute amount the of the imaged upper abdomen. There is fluid noted within the distal esophagus. Nonspecific minimal stranding of the left upper abdomen, likely perinephric. Soft tissues are unremarkable. The bones appear intact. Multilevel degenerative changes about the spine. IMPRESSION: 1. Extensive airspace disease with near complete consolidation involving the right middle and right upper lobes with associated central air bronchograms. No obstructing endobronchial lesion identified. These findings suggest pneumonia. Follow-up is needed to document complete resolution. 2. Small right and trace left pleural effusions with subsegmental left basilar consolidation suggesting atelectasis. 3. Mild mediastinal and right hilar adenopathy is likely reactive. 4. Cardiomegaly with mild pulmonary edema. 5. Indeterminate 5 mm solid nodule of the apical segment right upper lobe. Please refer to below summary of Fleischner criteria recommendations for follow-up of incidental CT nodules (Duglas Tate, Guidelines for management of small pulmonary nodules detected on CT scans: A statement from the Fleischner Society, Radiology 237: [id number].) SOLID NODULES Solitary nodule size: <6 mm * Low risk patients: no follow-up needed * high risk patients: optional CT at 12 months Note: newly detected indeterminate nodule in persons 35 years of age or older. * Low risk patients: minimal or absent history of smoking and/or other known risk factors * high risk patients: history of smoking or of other known risk factors (e.g. first degree relative with lung cancer, or exposure to asbestos, radon, uranium) * if a nodule up to 8 mm is partly solid or is ground glass further follow-up is required after 24 months to exclude possible slow growing adenocarcinoma (ORLY) The above report was generated using voice recognition software. It may contain grammatical, syntax or spelling errors. Electronically signed by: Bg Buckner M.D. 11/30/2017 2:20 PM Dictated Date/Time: 11/30/2017 2:06 PM
--- NOTE | 2017-11-30 20:09 | Progress Note ---
Internal Med Progress Note Date of Service: Nov 30, 2017. Provider Documentation: SUBJECTIVE: resting comfortably feeling much better denies sob afebrile hemodynamics improved no chest pain has some cough with whitish sputum no nausea tolerating liquid diet OBJECTIVE: Vital Signs-as noted below Exam: General-alert and oriented. ENT-Normal hearing Neck-no neck masses Lungs-cta b/l no wheezing bibasilar crackles present Heart-S1 and S2 heard regular rate and rhythm no murmurs Abdomen-Soft bowel sounds present non tender no distension Extremities-no edema no erythema Neuro-alert and awake moves extremities Lab data as noted below. ASSESSMENT & PLAN: This is a 67-year-old female who presents with severe sepsis/septic shock possibly from pneumonia. 1. Severe sepsis/septic shock, mostly from community acquired pneumonia - large right-sided pneumonia on the x-ray. White count of 34,000, tachycardia, hypotension, point of care lactic acid of 5.2. The patient has 2 peripheral lines. On aggressive IV fluids. Development of rash with Levaquin will continue with iv Zosyn and Doxycycline. . 11/30/17 hemodynamics improved lactic acid normalized ct chest shows Right upper and middle lobe pneumonia. 5mm right upper lobe nodule. continue current abx cut back on fluids 2. acute kidney failure and chronic kidney disease stage III, baseline creatinine about 1.1, creatinine on presentation 1.5, on IV fluids. resolved. 3. History of gastroesophageal reflux disease, proton pump inhibitor. 4. History of chronic obstructive pulmonary disease, does not seem to be in exacerbation at this time. We hold home nebs, Spiriva and Advair. on Xopenex around the clock and p.r.n. and monitor.Stable. 5. History of gout on allopurinol. 6. History of hyperlipidemia, on statin. 7. Deep vein thrombosis prophylaxis, SCDs and heparin subQ DISPOSITION possible transfer to [facility] in am pt/ot Vital Signs: Date Time Temp Pulse Resp B/P (MAP) Pulse Ox O2 Delivery O2 Flow Rate FiO2 11/30/17 18:00 103 23 124/69 (87) 94 Nasal Cannula 6.0 11/30/17 16:00 36.6 116 26 134/70 (91) 91 Nasal Cannula 6.0 11/30/17 16:00 Nasal Cannula 6.0 11/30/17 15:02 102 20 95 Nasal Cannula 5.0 11/30/17 14:00 111 29 115/66 (82) 91 Nasal Cannula 6.0 11/30/17 12:00 Nasal Cannula 6.0 11/30/17 12:00 36.5 111 25 116/60 (78) 92 Nasal Cannula 6.0 11/30/17 11:20 67 20 96 Nasal Cannula 6.0 11/30/17 10:00 102 23 104/62 (76) 93 Nasal Cannula 6.0 11/30/17 08:33 103 20 94 Nasal Cannula 6.0 11/30/17 08:00 36.5 105 26 117/65 (82) 92 Nasal Cannula 6.0 11/30/17 08:00 Nasal Cannula 6.0 11/30/17 06:00 36.5 107 22 133/63 (86) 92 Oxymask 4.0 11/30/17 06:00 107 22 133/63 (84) 92 11/30/17 05:00 98 18 90/58 (69) 91 Oxymask 4.0 11/30/17 05:00 98 18 90/58 (75) 91 11/30/17 04:00 109 21 104/62 (86) 88 11/30/17 04:00 109 21 104/62 (76) 88 Oxymask 4.0 11/30/17 04:00 92 Oxymask 4.0 11/30/17 03:00 103 30 117/64 (94) 91 11/30/17 03:00 103 30 117/64 (81) 91 Oxymask 4.0 11/30/17 02:21 104 20 88 Mask 6.0 11/30/17 02:00 100 25 111/61 (95) 88 11/30/17 02:00 36.6 100 25 111/61 (78) 88 Oxymask 4.0 11/30/17 01:00 36.2 101 19 100/60 (73) 88 Oxymask 4.0 11/30/17 01:00 101 19 100/60 (68) 88 11/30/17 00:00 106 21 132/68 (95) 90 11/30/17 00:00 106 21 132/68 (89) 90 Oxymask 4.0 11/29/17 23:59 90 Oxymask 4.0 11/29/17 23:00 107 25 109/62 (84) 94 11/29/17 23:00 107 25 109/62 (78) 94 Oxymask 4.0 11/29/17 22:00 112 29 114/68 (83) 92 Nasal Cannula 4.0 11/29/17 22:00 112 29 114/68 (84) 92 11/29/17 21:00 110 26 123/60 (81) 91 Nasal Cannula 4.0 11/29/17 21:00 110 26 123/60 (85) 91 Lab Results: Results Past 24 Hours Test 11/29/17 20:44 11/29/17 22:36 11/30/17 00:44 11/30/17 05:39 Range/Units Lactic Acid Level 3.2 1.7 0.4-2.0 mmol/L White Blood Count 27.39 30.30 4.8-10.8 K/uL Red Blood Count 4.07 3.72 4.2-5.4 M/uL Hemoglobin 12.3 11.2 12.0-16.0 g/dL Hematocrit 36.3 33.6 37-47 % Mean Corpuscular Volume 89.2 90.3 80-100 fL Mean Corpuscular Hemoglobin 30.2 30.1 25-34 pg Mean Corpuscular Hemoglobin Concent 33.9 33.3 32-36 g/dl RDW Standard Deviation 44.8 45.7 36.4-46.3 fL RDW Coefficient of Variation 13.7 13.8 11.5-14.5 % Platelet Count 282 280 130-400 K/uL Mean Platelet Volume 10.4 10.4 7.4-10.4 fL Prothrombin Time 12.0 9.0-12.0 SECONDS Prothromb Time International Ratio 1.1 0.9-1.1 Activated Partial Thromboplast Time 32.4 21.0-31.0 SECONDS Partial Thromboplastin Ratio 1.2 Sodium Level 133 139 136-145 mmol/L Potassium Level 3.7 4.1 3.5-5.1 mmol/L Chloride Level 101 106 98-107 mmol/L Carbon Dioxide Level 22 24 21-32 mmol/L Anion Gap 10.0 9.0 3-11 mmol/L Blood Urea Nitrogen 16 16 7-18 mg/dl Creatinine 1.12 0.97 0.60-1.20 mg/dl Est Creatinine Clear Calc Drug Dose 47.7 55.1 ml/min Estimated GFR () 58.9 70.0 Estimated GFR (Non- 50.8 60.4 BUN/Creatinine Ratio 13.8 16.2 10-20 Random Glucose 141 141 70-99 mg/dl Calcium Level 7.8 8.1 8.5-10.1 mg/dl Total Bilirubin 0.7 0.7 0.2-1 mg/dl Direct Bilirubin 0.3 0.3 0-0.2 mg/dl Aspartate Amino Transf (AST/SGOT) 28 25 15-37 U/L Alanine Aminotransferase (ALT/SGPT) 45 42 12-78 U/L Alkaline Phosphatase 209 194 45-117 U/L Total Protein 6.1 5.8 6.4-8.2 gm/dl Albumin 1.8 1.8 3.4-5.0 gm/dl Bedside Glucose 132 70-90 mg/dl Neutrophils (%) (Auto) 91.5 % Lymphocytes (%) (Auto) 2.1 % Monocytes (%) (Auto) 2.6 % Eosinophils (%) (Auto) 0.0 % Basophils (%) (Auto) 0.1 % Neutrophils # (Auto) 27.69 1.4-6.5 K/uL Lymphocytes # (Auto) 0.65 1.2-3.4 K/uL Monocytes # (Auto) 0.79 0.11-0.59 K/uL Eosinophils # (Auto) 0.01 0-0.5 K/uL Basophils # (Auto) 0.03 0-0.2 K/uL Immature Granulocyte % (Auto) 3.7 % Immature Granulocyte # (Auto) 1.13 0.00-0.02 K/uL Toxic Granulation 2+ Toxic Vacuolation 1+ Dohle Bodies 1+ Phosphorus Level 4.5 2.5-4.9 mg/dl Magnesium Level 1.7 1.8-2.4 mg/dl Test 11/30/17 05:42 11/30/17 08:05 11/30/17 11:24 11/30/17 11:48 Range/Units Bedside Glucose 154 155 70-90 mg/dl Lactic Acid Level 2.1 3.0 0.4-2.0 mmol/L
[2017-11-30] MEDS: TRAZODONE HCL 100 MG TAB PO SCH (20:28)
--- NOTE | 2017-11-30 21:13 | Critical Care Progress Note ---
Critical Care Progress Note Date of Service Nov 30, 2017. Attending Dr. Hardy Subjective The patient is feeling better, however she continued to have cough without sputum production, shortness of breath mainly with exertion but not at rest, she is not on any positive pressure ventilation, she is speaking in full sentences on nasal cannula. Objective Her physical exam on 11/30/2017 showed no fever, vital signs otherwise were stable, she does have diminished breath sounds of the right base with egophony, crackles on the left, heart examination S1-S2 regular rate and rhythm, abdomen is benign no edema in the periphery. Her labs as well as her CAT scan of the chest reviewed personally which showed dense consolidation affecting the right lower lobe and right middle lobe, multiple hazy infiltrates including groundglass opacities throughout the left lung as well. Cardiomegaly and lymphadenopathy in the mediastinum was noted. Assessment & Plan 1. Severe community-acquired pneumonia. 2. Small parapneumonic pleural effusion. 3. Severe COPD, gold level 3. 4. History of chronic kidney disease. 5. Mediastinal lymphadenopathy. 6. Right upper lobe nodule measuring 5 mm. Plan: 1. Continue with current treatment. Agree with antibiotics. 2. Ultrasound was done at the bedside which showed minimal pleural effusion compatible with the findings on the CAT scan of the chest. 3. The patient will need a repeat CAT scan in 4 weeks to evaluate for complete resolution of the pneumonia. 4. The size of the pneumonia and the air bronchogram. To be large in the right lower lobe and risk of necrotizing cannot be totally excluded. Follow the patient with serial chest x-rays. 5. Continue O2 via nasal cannula. 6. Oral intake. 7. Heparin subcu. 8. Case discussed with the staff on rounds. 9. Discussed with the patient in detail all her questions been answered. 10. Patient can be dispositioned to stepdown level. Critical care time spent with the patient was 35 minutes including coordinating the above. Data Medications: Current Inpatient Medications Medications (Trade) Dose Ordered Sig/Debo Route Start Time Stop Time Status Last Admin Dose Admin Heparin Sodium (Porcine) (Heparin Sq 5000 Unit/0.5ml) 5,000 unit Q8 SQ 11/29/17 18:30 12/29/17 18:29 11/30/17 14:43 5,000 UNIT Acetaminophen (Tylenol Tab) 650 mg Q4H PRN PO 11/29/17 17:30 12/29/17 17:29 Nitroglycerin (Nitrostat Tab) 0.4 mg UD PRN SL 11/29/17 17:30 12/29/17 17:29 Ipratropium [place] (Atrovent 0.02% 0.5MG/2.5ML Neb) 0.5 mg Q2R PRN INH 11/29/17 17:30 12/29/17 17:29 11/30/17 02:21 0.5 MG Levalbuterol (Xopenex 1.25MG/ 3ML Neb) 1.25 mg Q2R PRN INH 11/29/17 17:30 12/29/17 17:29 11/30/17 02:21 1.25 MG Ondansetron HCl (Zofran Inj) 4 mg Q6H PRN IV 11/29/17 17:30 12/29/17 17:29 Pantoprazole Sodium 40 mg/ Syringe 10 ml @ 5 mls/min DAILY IV 11/30/17 09:00 12/30/17 08:59 11/30/17 09:38 5 MLS/MIN Levalbuterol (Xopenex 1.25MG/ 0.5ML Neb) 1.25 mg QIDR INH 11/29/17 20:00 12/29/17 19:59 11/30/17 20:09 1.25 MG Ipratropium [place] (Atrovent 0.02% 0.5MG/2.5ML Neb) 0.5 mg QIDR INH 11/29/17 20:00 12/29/17 19:59 11/30/17 20:09 0.5 MG Miscellaneous Information (Icu Protocol For Hyperglycemia) 1 ea PRN PRN N/A 11/29/17 17:30 12/01/17 17:29 Allopurinol (Zyloprim Tab) 100 mg DAILY PO 11/30/17 09:00 12/30/17 08:59 11/30/17 09:39 100 MG Aspirin (Ecotrin Tab) 81 mg DAILY PO 11/30/17 09:00 12/30/17 08:59 11/30/17 09:39 81 MG Atorvastatin Calcium (Lipitor Tab) 10 mg DAILY PO 11/30/17 09:00 12/30/17 08:59 11/30/17 09:39 10 MG Lorazepam (Ativan Tab) 1 mg BID PRN PO 11/29/17 17:30 12/29/17 17:29 11/29/17 22:32 1 MG Metronidazole HCl (Metrogel Topical Gel) 1 appln BID TOP 11/29/17 21:00 12/09/17 20:59 11/30/17 20:30 1 APPLN Montelukast Sodium (Singulair Tab) 10 mg DAILY PO 11/30/17 09:00 12/30/17 08:59 11/30/17 09:39 10 MG Multivitamins (Multivitamin Tab) 1 tab QAM PO 11/30/17 09:00 12/30/17 08:59 11/30/17 09:40 1 TAB Trazodone HCl (Desyrel Tab) 100 mg HS PO 11/29/17 21:00 12/29/17 20:59 11/30/17 20:28 100 MG Venlafaxine HCl (effeXOR EXTENDED REL CAP) 150 mg BID PO 11/29/17 21:00 12/29/17 20:59 11/30/17 20:28 150 MG Miscellaneous Information (Order Awaiting Action) 1 ea QS N/A 11/30/17 00:00 12/30/17 00:00 Bupropion HCl (Wellbutrin-Xl Tab) 150 mg DAILY PO 11/30/17 09:00 12/30/17 08:59 11/30/17 09:39 150 MG Sodium Chloride 1,000 ml @ 50 mls/hr Q20H IV 11/29/17 19:00 12/29/17 18:59 11/30/17 09:42 200 MLS/HR Piperacillin Sod/ Tazobactam Sod 4.5 gm/Dextrose 120 ml @ 28.75 mls/ hr Q8H IV 11/29/17 22:00 12/09/17 15:59 11/30/17 14:43 28.75 MLS/HR Miscellaneous Information (Consult) 1 ea UD PRN N/A 11/29/17 18:15 12/29/17 18:14 Doxycycline Hyclate 100 mg/ Dextrose 110 ml @ 50 mls/hr BID IV 11/29/17 18:30 12/06/17 18:29 Future hold 11/30/17 20:28 50 MLS/HR Nicotine (Nicoderm Cq 14MG Patch) 1 patch QAM TD 11/30/17 09:00 12/30/17 08:59 11/30/17 09:40 1 PATCH Miscellaneous (Remove Nicoderm Patch) 1 ea HS N/A 11/30/17 21:00 12/30/17 20:59 Ioversol (Optiray 320) 125 ml UD PRN IV 11/30/17 10:30 12/04/17 10:29 I & O: 24-Hour Column 12/01/17 08:00 Intake Total 2011 ml Output Total 2000 ml Balance 11 ml Vital Signs: Date Time Temp Pulse Resp B/P (MAP) Pulse Ox O2 Delivery O2 Flow Rate FiO2 11/30/17 20:10 102 20 95 Nasal Cannula 5.0 11/30/17 18:00 103 23 124/69 (87) 94 Nasal Cannula 6.0 11/30/17 16:00 36.6 116 26 134/70 (91) 91 Nasal Cannula 6.0 11/30/17 16:00 Nasal Cannula 6.0 11/30/17 15:02 102 20 95 Nasal Cannula 5.0 11/30/17 14:00 111 29 115/66 (82) 91 Nasal Cannula 6.0 11/30/17 12:00 Nasal Cannula 6.0 11/30/17 12:00 36.5 111 25 116/60 (78) 92 Nasal Cannula 6.0 11/30/17 11:20 67 20 96 Nasal Cannula 6.0 11/30/17 10:00 102 23 104/62 (76) 93 Nasal Cannula 6.0 11/30/17 08:33 103 20 94 Nasal Cannula 6.0 11/30/17 08:00 36.5 105 26 117/65 (82) 92 Nasal Cannula 6.0 11/30/17 08:00 Nasal Cannula 6.0 11/30/17 06:00 36.5 107 22 133/63 (86) 92 Oxymask 4.0 11/30/17 06:00 107 22 133/63 (84) 92 11/30/17 05:00 98 18 90/58 (69) 91 Oxymask 4.0 11/30/17 05:00 98 18 90/58 (75) 91 11/30/17 04:00 109 21 104/62 (86) 88 11/30/17 04:00 109 21 104/62 (76) 88 Oxymask 4.0 11/30/17 04:00 92 Oxymask 4.0 11/30/17 03:00 103 30 117/64 (94) 91 11/30/17 03:00 103 30 117/64 (81) 91 Oxymask 4.0 11/30/17 02:21 104 20 88 Mask 6.0 11/30/17 02:00 100 25 111/61 (95) 88 11/30/17 02:00 36.6 100 25 111/61 (78) 88 Oxymask 4.0 11/30/17 01:00 36.2 101 19 100/60 (73) 88 Oxymask 4.0 11/30/17 01:00 101 19 100/60 (68) 88 11/30/17 00:00 106 21 132/68 (95) 90 11/30/17 00:00 106 21 132/68 (89) 90 Oxymask 4.0 11/29/17 23:59 90 Oxymask 4.0 11/29/17 23:00 107 25 109/62 (84) 94 11/29/17 23:00 107 25 109/62 (78) 94 Oxymask 4.0 11/29/17 22:00 112 29 114/68 (83) 92 Nasal Cannula 4.0 11/29/17 22:00 112 29 114/68 (84) 92 Laboratory Results: Last 24 Hours Test 11/29/17 22:36 11/30/17 00:44 11/30/17 05:39 11/30/17 05:42 White Blood Count 27.39 K/uL 30.30 K/uL Red Blood Count 4.07 M/uL 3.72 M/uL Hemoglobin 12.3 g/dL 11.2 g/dL Hematocrit 36.3 % 33.6 % Mean Corpuscular Volume 89.2 fL 90.3 fL Mean Corpuscular Hemoglobin 30.2 pg 30.1 pg Mean Corpuscular Hemoglobin Concent 33.9 g/dl 33.3 g/dl RDW Standard Deviation 44.8 fL 45.7 fL RDW Coefficient of Variation 13.7 % 13.8 % Platelet Count 282 K/uL 280 K/uL Mean Platelet Volume 10.4 fL 10.4 fL Prothrombin Time 12.0 SECONDS Prothromb Time International Ratio 1.1 Activated Partial Thromboplast Time 32.4 SECONDS Partial Thromboplastin Ratio 1.2 Sodium Level 133 mmol/L 139 mmol/L Potassium Level 3.7 mmol/L 4.1 mmol/L Chloride Level 101 mmol/L 106 mmol/L Carbon Dioxide Level 22 mmol/L 24 mmol/L Anion Gap 10.0 mmol/L 9.0 mmol/L Blood Urea Nitrogen 16 mg/dl 16 mg/dl Creatinine 1.12 mg/dl 0.97 mg/dl Est Creatinine Clear Calc Drug Dose 47.7 ml/min 55.1 ml/min Estimated GFR () 58.9 70.0 Estimated GFR (Non- 50.8 60.4 BUN/Creatinine Ratio 13.8 16.2 Random Glucose 141 mg/dl 141 mg/dl Calcium Level 7.8 mg/dl 8.1 mg/dl Total Bilirubin 0.7 mg/dl 0.7 mg/dl Direct Bilirubin 0.3 mg/dl 0.3 mg/dl Aspartate Amino Transf (AST/SGOT) 28 U/L 25 U/L Alanine Aminotransferase (ALT/SGPT) 45 U/L 42 U/L Alkaline Phosphatase 209 U/L 194 U/L Total Protein 6.1 gm/dl 5.8 gm/dl Albumin 1.8 gm/dl 1.8 gm/dl Bedside Glucose 132 mg/dl 154 mg/dl Neutrophils (%) (Auto) 91.5 % Lymphocytes (%) (Auto) 2.1 % Monocytes (%) (Auto) 2.6 % Eosinophils (%) (Auto) 0.0 % Basophils (%) (Auto) 0.1 % Neutrophils # (Auto) 27.69 K/uL Lymphocytes # (Auto) 0.65 K/uL Monocytes # (Auto) 0.79 K/uL Eosinophils # (Auto) 0.01 K/uL Basophils # (Auto) 0.03 K/uL Immature Granulocyte % (Auto) 3.7 % Immature Granulocyte # (Auto) 1.13 K/uL Toxic Granulation 2+ Toxic Vacuolation 1+ Dohle Bodies 1+ Lactic Acid Level 1.7 mmol/L Phosphorus Level 4.5 mg/dl Magnesium Level 1.7 mg/dl Test 11/30/17 08:05 11/30/17 11:24 11/30/17 11:48 11/30/17 16:09 Lactic Acid Level 2.1 mmol/L 3.0 mmol/L Bedside Glucose 155 mg/dl 218 mg/dl
[2017-12-01] VITALS (19 sets, daily range): BP systolic 135–165; BP diastolic 75–97; PULSE 86–110; TEMP 36.4–37; O2SAT 88–97
[2017-12-01] MEDS: HEPARIN SOD 5000 UNIT/0.5 ML CARP SQ SCH ×3 (06:00→21:14)
[2017-12-01] MEDS: PIPERACILL/TAZOBAC IV 4.5 GM in DEXTROSE 5% 100ML 100 ML IV SCH ×3 (06:01→21:20)
[2017-12-01 06:36] LABS: HEMATOCRIT 34.5 % (37-47); HEMOGLOBIN 11.7 g/dL (12.0-16.0); MEAN CELL VOLUME 90.3 fL (80-100); MEAN CORPUSCULAR HEMOGLOBIN 30.6 pg (25-34); MEAN CORPUSCULAR HGB CONC 33.9 g/dl (32-36); MEAN PLATELET VOLUME 10.7 fL (7.4-10.4); PLATELET COUNT 319 K/uL (130-400); RED CELL DISTRIBUTION WIDTH CV 14.2 % (11.5-14.5); RED CELL DISTRIBUTION WIDTH SD 46.8 fL (36.4-46.3); WHITE BLOOD COUNT 38.32 K/uL (4.8-10.8)
[2017-12-01 06:53] LABS: BASO % 0.4 %; BASO ABS # 0.14 K/uL (0-0.2); CALCIUM 8.5 mg/dl (8.5-10.1); CREATININE 0.94 mg/dl (0.60-1.20); EOS % 0.1 %; EOS ABS # 0.02 K/uL (0-0.5); IG# 0.82 K/uL (0.00-0.02); LYMPH % 4.3 %; LYMPH ABS # 1.63 K/uL (1.2-3.4); MONO % 4.5 %; MONO ABS # 1.72 K/uL (0.11-0.59); NEUT % 88.6 %; NEUT ABS # 33.99 K/uL (1.4-6.5); POTASSIUM 3.7 mmol/L (3.5-5.1)
--- NOTE | 2017-12-01 07:08 | DIAGNOSTIC IMAGING REPORT ---
CHEST ONE VIEW PORTABLE CLINICAL HISTORY: 67 years-old Female presenting with PNEUMONIA. TECHNIQUE: Portable upright AP view of the chest was obtained. COMPARISON: 11/30/2017. FINDINGS: Atherosclerosis of aortic arch. Cardiac silhouette mildly enlarged. Dense opacity in the right middle and right lower lobes though there is slight increased aeration of the right lower lobe. Patchy hazy opacity noted throughout both lungs with increased density of opacities on the left. Small right pleural effusion. Possible trace left pleural effusion. No pneumothorax. Osseous structures normal. IMPRESSION: 1. Interval increase in patchy consolidation in the left lung with persistent dense consolidation in the right middle and right lower lobes. There has been slight improved aeration of the right lower lobe. Findings remain consistent with multifocal pneumonia. 2. Mild cardiomegaly. Electronically signed by: Alfonso Strange M.D. 12/01/2017 7:07 AM Dictated Date/Time: 12/01/2017 7:04 AM
[2017-12-01] MEDS: LEVALBUTEROL 1.25MG/0.5ML NEB INH SCH ×4 (07:44→19:49)
[2017-12-01] MEDS: IPRATROPIUM BROMIDE NEB SOLN 0.02% 2.5 ML VIAL INH SCH ×4 (07:44→19:49)
[2017-12-01] MEDS: VYVANSE: ORDER AWAITING ACTION SCH ×2 (08:00)
[2017-12-01] MEDS: SODIUM CHLORIDE 0.9% 1000ML 1,000 ML IV SCH (08:20)
[2017-12-01] MEDS: PANTOprazole INJ 40 MG in SYRINGE 0 ML IV SCH (08:22)
[2017-12-01] MEDS: ALLOPURINOL 100 MG TAB PO SCH (08:22)
[2017-12-01] MEDS ORDERED: VANCOMYCIN 1GM ED/ASU OMNICELL IV STA (08:27)
[2017-12-01] MEDS: ATORVASTATIN 10 MG TAB PO SCH (08:44)
[2017-12-01] MEDS: MONTELUKAST SOD 10 MG TAB PO SCH (08:44)
[2017-12-01] MEDS: ASPIRIN 81 MG ECTAB PO SCH (08:44)
[2017-12-01] MEDS: BuPROPion XL 150 MG TABCR PO SCH (08:44)
[2017-12-01] MEDS: MULTIVITAMIN TAB PO SCH (08:44)
[2017-12-01] MEDS: VENLAFAXINE HCL XR 150 MG CAPXR PO SCH ×2 (08:44→21:10)
[2017-12-01] MEDS: NICOTINE 14 MG/24 HR TDSY TD SCH ×2 (08:44→14:34)
[2017-12-01] MEDS ORDERED: SODIUM CHLORIDE 7% 4 ML NEB INH ONE (08:45)
[2017-12-01] MEDS: METRONIDAZOLE 0.75% TOPICAL GEL 45 GM TUBE TOP SCH ×2 (08:45→21:10)
[2017-12-01] MEDS ORDERED: VANCOMYCIN IV 2,000 MG in SODIUM CHLORIDE 0.9% 500ML 500 ML IV ONE (10:30)
--- NOTE | 2017-12-01 11:17 | Pulmonology Progress Note ---
Pulmonary Progress Note Date of Service Dec 01, 2017. Attending Dr. Hardy Subjective The patient continued to do better clinically, she denies any shortness of breath, she continued to have cough without sputum production. No chest pain was reported. No hemoptysis either. Her chief complaint was insomnia. Objective Physical exam on 12/01/2017, the patient has diminished breath sounds at the right base, bilateral scattered crackles, S1-S2 regular rate and rhythm, O2 saturation 91% on nasal cannula, abdomen is benign no edema. Her labs were reviewed showing elevated white count. Assessment & Plan 1. Severe community-acquired pneumonia involving right lower lobe and right middle lobe with multiple groundglass opacities in the left subsegment area. 2. COPD, gold level 3, currently borderline or desaturation. 3. Small pleural effusion. 4. Mediastinal lymphadenopathy likely reactive secondary to pneumonia. Needs to be followed up later. Plan: 1. Due to the rise in her white count and neck authorization noted on the CAT scan, I will escalate her antibiotics to involve also vancomycin. We will continue with ceftriaxone and doxycycline. 2. I will add Solu-Medrol given the scattered wheezing that she has having. The patient is known to have severe COPD. 3. Continue with bronchodilators. 4. The patient needs follow-up chest x-ray prior to discharge. 5. Watch for the leukocytosis. 6. Agree with the transfer the patient to [facility]. 7. We will continue to follow as pulmonary on the floor. 8. Oxygen continuously. 9. Physical therapy and pulmonary toilet. Thank you Data Medications: Current Inpatient Medications Medications (Trade) Dose Ordered Sig/Debo Route Start Time Stop Time Status Last Admin Dose Admin Heparin Sodium (Porcine) (Heparin Sq 5000 Unit/0.5ml) 5,000 unit Q8 SQ 11/29/17 18:30 12/29/17 18:29 12/01/17 06:00 5,000 UNIT Acetaminophen (Tylenol Tab) 650 mg Q4H PRN PO 11/29/17 17:30 12/29/17 17:29 Nitroglycerin (Nitrostat Tab) 0.4 mg UD PRN SL 11/29/17 17:30 12/29/17 17:29 Ipratropium [place] (Atrovent 0.02% 0.5MG/2.5ML Neb) 0.5 mg Q2R PRN INH 11/29/17 17:30 12/29/17 17:29 11/30/17 02:21 0.5 MG Levalbuterol (Xopenex 1.25MG/ 3ML Neb) 1.25 mg Q2R PRN INH 11/29/17 17:30 12/29/17 17:29 11/30/17 02:21 1.25 MG Ondansetron HCl (Zofran Inj) 4 mg Q6H PRN IV 11/29/17 17:30 12/29/17 17:29 Pantoprazole Sodium 40 mg/ Syringe 10 ml @ 5 mls/min DAILY IV 11/30/17 09:00 12/30/17 08:59 12/01/17 08:22 5 MLS/MIN Levalbuterol (Xopenex 1.25MG/ 0.5ML Neb) 1.25 mg QIDR INH 11/29/17 20:00 12/29/17 19:59 12/01/17 07:44 1.25 MG Ipratropium [place] (Atrovent 0.02% 0.5MG/2.5ML Neb) 0.5 mg QIDR INH 11/29/17 20:00 12/29/17 19:59 12/01/17 07:44 0.5 MG Miscellaneous Information (Icu Protocol For Hyperglycemia) 1 ea PRN PRN N/A 11/29/17 17:30 12/01/17 17:29 Allopurinol (Zyloprim Tab) 100 mg DAILY PO 11/30/17 09:00 12/30/17 08:59 12/01/17 08:22 100 MG Aspirin (Ecotrin Tab) 81 mg DAILY PO 11/30/17 09:00 12/30/17 08:59 12/01/17 08:44 81 MG Atorvastatin Calcium (Lipitor Tab) 10 mg DAILY PO 11/30/17 09:00 12/30/17 08:59 12/01/17 08:44 10 MG Lorazepam (Ativan Tab) 1 mg BID PRN PO 11/29/17 17:30 12/29/17 17:29 11/29/17 22:32 1 MG Metronidazole HCl (Metrogel Topical Gel) 1 appln BID TOP 11/29/17 21:00 12/09/17 20:59 12/01/17 08:45 1 APPLN Montelukast Sodium (Singulair Tab) 10 mg DAILY PO 11/30/17 09:00 12/30/17 08:59 12/01/17 08:44 10 MG Multivitamins (Multivitamin Tab) 1 tab QAM PO 11/30/17 09:00 12/30/17 08:59 12/01/17 08:44 1 TAB Trazodone HCl (Desyrel Tab) 100 mg HS PO 11/29/17 21:00 12/29/17 20:59 11/30/17 20:28 100 MG Venlafaxine HCl (effeXOR EXTENDED REL CAP) 150 mg BID PO 11/29/17 21:00 12/29/17 20:59 12/01/17 08:44 150 MG Miscellaneous Information (Order Awaiting Action) 1 ea QS N/A 11/30/17 00:00 12/30/17 00:00 Bupropion HCl (Wellbutrin-Xl Tab) 150 mg DAILY PO 11/30/17 09:00 12/30/17 08:59 12/01/17 08:44 150 MG Sodium Chloride 1,000 ml @ 50 mls/hr Q20H IV 11/29/17 19:00 12/29/17 18:59 12/01/17 08:20 50 MLS/HR Piperacillin Sod/ Tazobactam Sod 4.5 gm/Dextrose 120 ml @ 28.75 mls/ hr Q8H IV 11/29/17 22:00 12/09/17 15:59 12/01/17 06:01 28.75 MLS/HR Miscellaneous Information (Consult) 1 ea UD PRN N/A 11/29/17 18:15 12/29/17 18:14 Nicotine (Nicoderm Cq 14MG Patch) 1 patch QAM TD 11/30/17 09:00 12/30/17 08:59 12/01/17 08:44 1 PATCH Miscellaneous (Remove Nicoderm Patch) 1 ea HS N/A 11/30/17 21:00 12/30/17 20:59 11/30/17 21:22 1 EA Ioversol (Optiray 320) 125 ml UD PRN IV 11/30/17 10:30 12/04/17 10:29 Vancomycin HCl (Vancomycin 1gm/ 270ml Nss) 1 gm Q12 STAT IV 12/01/17 08:27 12/01/17 08:28 UNV Vancomycin HCl 2000 mg/Sodium Chloride 540 ml @ 200 mls/hr ONE ONCE IV 12/01/17 10:30 12/01/17 13:11 Vital Signs: Date Time Temp Pulse Resp B/P (MAP) Pulse Ox O2 Delivery O2 Flow Rate FiO2 12/01/17 09:26 36.4 110 22 92 4.0 12/01/17 09:15 104 20 91 Nasal Cannula 4.0 12/01/17 08:00 Nasal Cannula 4.0 12/01/17 08:00 36.4 110 22 151/76 (101) 92 Nasal Cannula 4.0 12/01/17 07:47 100 20 92 Nasal Cannula 5.0 12/01/17 06:00 98 21 92 12/01/17 06:00 98 21 143/97 (112) 92 Nasal Cannula 6.0 12/01/17 05:00 102 14 93 12/01/17 04:00 Nasal Cannula 6.0 12/01/17 04:00 36.6 105 22 164/90 (114) 91 Nasal Cannula 6.0 12/01/17 04:00 105 22 91 12/01/17 03:00 106 22 92 12/01/17 02:00 103 18 12/01/17 02:00 103 18 161/89 (113) 12/01/17 01:00 105 23 12/01/17 00:01 103 24 154/90 (102) 93 12/01/17 00:01 36.7 103 24 154/90 (111) 93 Nasal Cannula 6.0 11/30/17 23:59 Nasal Cannula 6.0 11/30/17 23:00 102 24 87 11/30/17 22:00 101 26 95 11/30/17 22:00 101 26 147/101 (116) 95 Nasal Cannula 6.0 11/30/17 21:00 108 34 95 11/30/17 20:10 102 20 95 Nasal Cannula 5.0 11/30/17 20:00 Nasal Cannula 6.0 11/30/17 20:00 97 21 94 11/30/17 20:00 36.6 97 21 137/79 (98) 94 Nasal Cannula 6.0 11/30/17 19:00 99 25 94 11/30/17 18:00 103 23 124/69 (87) 94 Nasal Cannula 6.0 11/30/17 16:00 36.6 116 26 134/70 (91) 91 Nasal Cannula 6.0 11/30/17 16:00 Nasal Cannula 6.0 11/30/17 15:02 102 20 95 Nasal Cannula 5.0 11/30/17 14:00 111 29 115/66 (82) 91 Nasal Cannula 6.0 11/30/17 12:00 Nasal Cannula 6.0 11/30/17 12:00 36.5 111 25 116/60 (78) 92 Nasal Cannula 6.0 11/30/17 11:20 67 20 96 Nasal Cannula 6.0 Laboratory Results: Last 24 Hours Test 11/30/17 11:24 11/30/17 11:48 11/30/17 16:09 12/01/17 00:51 Bedside Glucose 155 mg/dl 218 mg/dl 150 mg/dl Lactic Acid Level 3.0 mmol/L Test 12/01/17 05:54 White Blood Count 38.32 K/uL Red Blood Count 3.82 M/uL Hemoglobin 11.7 g/dL Hematocrit 34.5 % Mean Corpuscular Volume 90.3 fL Mean Corpuscular Hemoglobin 30.6 pg Mean Corpuscular Hemoglobin Concent 33.9 g/dl Platelet Count 319 K/uL Mean Platelet Volume 10.7 fL Neutrophils (%) (Auto) 88.6 % Lymphocytes (%) (Auto) 4.3 % Monocytes (%) (Auto) 4.5 % Eosinophils (%) (Auto) 0.1 % Basophils (%) (Auto) 0.4 % Neutrophils # (Auto) 33.99 K/uL Lymphocytes # (Auto) 1.63 K/uL Monocytes # (Auto) 1.72 K/uL Eosinophils # (Auto) 0.02 K/uL Basophils # (Auto) 0.14 K/uL RDW Standard Deviation 46.8 fL RDW Coefficient of Variation 14.2 % Immature Granulocyte % (Auto) 2.1 % Immature Granulocyte # (Auto) 0.82 K/uL Toxic Granulation 3+ Toxic Vacuolation 1+ Sodium Level 140 mmol/L Potassium Level 3.7 mmol/L Chloride Level 107 mmol/L Carbon Dioxide Level 25 mmol/L Anion Gap 8.0 mmol/L Blood Urea Nitrogen 20 mg/dl Creatinine 0.94 mg/dl Est Creatinine Clear Calc Drug Dose 58.0 ml/min Estimated GFR () 72.8 Estimated GFR (Non- 62.8 BUN/Creatinine Ratio 20.9 Random Glucose 107 mg/dl Calcium Level 8.5 mg/dl Magnesium Level 2.1 mg/dl
[2017-12-01] MEDS ORDERED: VANCOMYCIN CONSULT ACTIVE PRN (13:15)
--- NOTE | 2017-12-01 13:28 | Pharmacy Progress Note ---
Pharmacy Antibiotic Consult Date of Service: Dec 01, 2017. Pharmacy Dosing Scope Pharmacy is consulted to initiate Vancomycin IV dosing therapy, order appropriate labs and adjust drug dose/frequency. Subjective The patient is a 67 year old female admitted on Nov 29, 2017 at 17:26. Objective Height (Feet): 5 Height (Inches): 3.00 Weight (Kilograms): 79.500 Lab Results (24hrs): Test 11/30/17 16:09 12/01/17 00:51 12/01/17 05:54 Bedside Glucose 218 mg/dl (70-90) 150 mg/dl (70-90) White Blood Count 38.32 K/uL (4.8-10.8) Red Blood Count 3.82 M/uL (4.2-5.4) Hemoglobin 11.7 g/dL (12.0-16.0) Hematocrit 34.5 % (37-47) Mean Corpuscular Volume 90.3 fL (80-100) Mean Corpuscular Hemoglobin 30.6 pg (25-34) Mean Corpuscular Hemoglobin Concent 33.9 g/dl (32-36) Platelet Count 319 K/uL (130-400) Mean Platelet Volume 10.7 fL (7.4-10.4) Neutrophils (%) (Auto) 88.6 % Lymphocytes (%) (Auto) 4.3 % Monocytes (%) (Auto) 4.5 % Eosinophils (%) (Auto) 0.1 % Basophils (%) (Auto) 0.4 % Neutrophils # (Auto) 33.99 K/uL (1.4-6.5) Lymphocytes # (Auto) 1.63 K/uL (1.2-3.4) Monocytes # (Auto) 1.72 K/uL (0.11-0.59) Eosinophils # (Auto) 0.02 K/uL (0-0.5) Basophils # (Auto) 0.14 K/uL (0-0.2) RDW Standard Deviation 46.8 fL (36.4-46.3) RDW Coefficient of Variation 14.2 % (11.5-14.5) Immature Granulocyte % (Auto) 2.1 % Immature Granulocyte # (Auto) 0.82 K/uL (0.00-0.02) Toxic Granulation 3+ Toxic Vacuolation 1+ Sodium Level 140 mmol/L (136-145) Potassium Level 3.7 mmol/L (3.5-5.1) Chloride Level 107 mmol/L (98-107) Carbon Dioxide Level 25 mmol/L (21-32) Anion Gap 8.0 mmol/L (3-11) Blood Urea Nitrogen 20 mg/dl (7-18) Creatinine 0.94 mg/dl (0.60-1.20) Est Creatinine Clear Calc Drug Dose 58.0 ml/min Estimated GFR () 72.8 Estimated GFR (Non- 62.8 BUN/Creatinine Ratio 20.9 (10-20) Random Glucose 107 mg/dl (70-99) Calcium Level 8.5 mg/dl (8.5-10.1) Magnesium Level 2.1 mg/dl (1.8-2.4) Micro Results: Item Value Date Time Gram Stain Received 12/01/17 0900 Sputum Expectorated Sputum Pending MRSA DNA Surveillance Screen - Final Complete 11/29/17 1820 Nasal Specimen Negative for MRSA by DNA Probe Blood Culture - Preliminary Resulted 11/29/17 1550 Blood NO GROWTH TO DATE. Blood Culture - Preliminary Resulted 11/29/17 1548 Blood NO GROWTH TO DATE. Urine Culture - Final Complete 11/29/17 0000 Urine,Catheterized NO GROWTH - LESS THAN 1,000 COLONIES/ML Assessment & Plan ASSESSMENT: * Ms Cronin is a 67yo female receiving antibiotic therapy (Doxy + Zosyn) for b/l multifocal pneumonia. * Due to an increase in WBC today (30-->38) and persistent/worsening dense consolidation on CT imaging, abx escalated from Doxy to Vanc. * Renal function has improved since admission and appears to be fairly stable. PLAN: Vancomycin: * Loading dose: Vancomycin 2000 mg (25mg/kg) IV X 1 dose then: * Vancomycin 1250 mg (~15mg/kg) IV every 16 hours. * Patient's estimated p'kinetic parameters (based on CrCl ~58mL/min): * Ke ~ 0.053/hr t1/2 ~ 13hr * Goal trough level estimate: between 15 - 20 mcg/mL for pulmonary infx. * Trough level has been ordered for: 12/03 prior to the dose due at 1200 Continue Zosyn 4.5gm IV q8h, extended 4-hr infusions Pharmacy will continue to follow and will adjust dose/frequency as necessary. Thank you
[2017-12-01] MEDS ORDERED: PATIENT'S OWN CONTROLLED MED PO SCH (14:00)
[2017-12-01] MEDS ORDERED: LISDEXAMFETAMINE DIMESYLATE 30 MG CAP PO ONE (14:00)
--- NOTE | 2017-12-01 18:08 | Progress Note ---
Medicine Progress Note Date & Time of Visit: Dec 01, 2017 at 17:56. Subjective 67-year-old female presents with severe sepsis secondary to pneumonia she was initially sent to the ICU, treated with broad-spectrum antibiotics and resuscitated. She was transferred to the floor today. She reports some persistent cough but denies fevers and chills. She reports an improvement in her breathing and overall clinical status. Family was in the room and all questions answered. Objective Last 8 Hrs Date Time Temp Pulse Resp B/P (MAP) Pulse Ox O2 Delivery O2 Flow Rate FiO2 12/01/17 15:25 36.7 93 18 138/75 (96) 94 4.0 12/01/17 15:15 96 20 94 Nasal Cannula 4.0 12/01/17 11:49 36.4 92 18 135/79 (97) 97 2.0 12/01/17 11:49 97 Nasal Cannula 2.0 12/01/17 11:06 86 20 91 Nasal Cannula 4.0 Physical Exam: GEN: WNWD, in no acute distress, alert and appropriate, occasional fits of coughing HEENT: NC/AT, normal sclerae, MMM CARDIO: reg rate, S1/2 heard without m/g/r LUNGS: crackles throughout all lung browning. No wheezing or rales were audible. Pt coughs frequently when triggered by deep breathing. ABD: soft, mild TTP in RUQ/epigastric area, +BS, soft, non-distended EXTREMITY: RP and DP palpable 2+ bilat, no LE swelling or edema, extremities are warm and well-perfused NEURO: CN 2-12 grossly intact, no gross focal deficits. MUSC: moves all extremities equally, generalized weakness noted. SKIN: warm and dry Laboratory Results: 12/01/17 05:54 Red Blood Count 3.82, Mean Corpuscular Volume 90.3, Mean Corpuscular Hemoglobin 30.6, Mean Corpuscular Hemoglobin Concent 33.9, Mean Platelet Volume 10.7, Neutrophils (%) (Auto) 88.6, Lymphocytes (%) (Auto) 4.3, Monocytes (%) (Auto) 4.5, Eosinophils (%) (Auto) 0.1, Basophils (%) (Auto) 0.4, Neutrophils # (Auto) 33.99, Lymphocytes # (Auto) 1.63, Monocytes # (Auto) 1.72, Eosinophils # (Auto) 0.02, Basophils # (Auto) 0.14 12/01/17 05:54 Test 11/29/17 00:00 11/29/17 15:48 11/29/17 16:03 11/29/17 16:20 Urine Color DK YELLOW Urine Appearance CLOUDY (CLEAR) Urine pH 5.0 (4.5-7.5) Urine Specific [place] 1.011 (1.000-1.030) Urine Protein NEG (NEG) Urine Glucose (UA) NEG (NEG) Urine Ketones NEG (NEG) Urine Occult Blood NEG (NEG) Urine Nitrite POS (NEG) Urine Bilirubin NEG (NEG) Urine Urobilinogen NEG (NEG) Urine Leukocyte Esterase MODERATE (NEG) Urine WBC (Auto) /hpf (0-5) Urine RBC (Auto) /hpf (0-4) Urine Hyaline Casts (Auto) /lpf (0-5) Urine Epithelial Cells (Auto) /lpf (0-5) Urine Bacteria (Auto) (NEG) Urine RBC 0-4 /hpf (0-4) Urine WBC 5-10 /hpf (0-5) Urine Epithelial Cells 0-5 /lpf (0-5) Urine Renal Epithelial Cells /lpf (0-5) Urine Renal Cells 0-5 /lpf (FEW) Urine Amorphous Sediment PRESENT (NONE PRSENT) Urine Bacteria 1+ (NEG) Urine Pathogenic Casts /lpf (0) Neutrophils % (Manual) 85.8 % Lymphocytes % (Manual) 1.7 % Monocytes % (Manual) 2.5 % Metamyelocytes % 9.2 % Myelocytes % 0.8 % Neutrophils # (Manual) 29.57 K/uL (1.4-6.5) Total Absolute Neutrophils 29.57 K/uL (1.4-6.5) Lymphocytes # (Manual) 0.59 K/uL (1.2-3.4) Total Absolute Lymphocytes 0.59 K/uL (1.2-3.4) Monocytes # (Manual) 0.86 K/uL (0.11-0.59) Metamyelocytes # 3.17 K/uL (0-0) Myelocytes # 0.28 K/uL (0-0) Troponin I < 0.015 ng/ml (0-0.045) Chemistry Specimen Hemolysis Bedside Lactic Acid Venous 5.22 mmol/L (0.90-1.70) Influenza Type A (RT-PCR) Neg for Influ A (NEG) Influenza Type B (RT-PCR) Neg for Influ B (NEG) Test 11/29/17 22:36 11/30/17 05:39 11/30/17 11:48 12/01/17 05:54 Prothrombin Time 12.0 SECONDS (9.0-12.0) Prothromb Time International Ratio 1.1 (0.9-1.1) Activated Partial Thromboplast Time 32.4 SECONDS (21.0-31.0) Partial Thromboplastin Ratio 1.2 Dohle Bodies 1+ Phosphorus Level 4.5 mg/dl (2.5-4.9) Total Bilirubin 0.7 mg/dl (0.2-1) Direct Bilirubin 0.3 mg/dl (0-0.2) Aspartate Amino Transf (AST/SGOT) 25 U/L (15-37) Alanine Aminotransferase (ALT/SGPT) 42 U/L (12-78) Alkaline Phosphatase 194 U/L (45-117) Total Protein 5.8 gm/dl (6.4-8.2) Albumin 1.8 gm/dl (3.4-5.0) Lactic Acid Level 3.0 mmol/L (0.4-2.0) White Blood Count 38.32 K/uL (4.8-10.8) Red Blood Count 3.82 M/uL (4.2-5.4) Hemoglobin 11.7 g/dL (12.0-16.0) Hematocrit 34.5 % (37-47) Mean Corpuscular Volume 90.3 fL (80-100) Mean Corpuscular Hemoglobin 30.6 pg (25-34) Mean Corpuscular Hemoglobin Concent 33.9 g/dl (32-36) Platelet Count 319 K/uL (130-400) Mean Platelet Volume 10.7 fL (7.4-10.4) Neutrophils (%) (Auto) 88.6 % Lymphocytes (%) (Auto) 4.3 % Monocytes (%) (Auto) 4.5 % Eosinophils (%) (Auto) 0.1 % Basophils (%) (Auto) 0.4 % Neutrophils # (Auto) 33.99 K/uL (1.4-6.5) Lymphocytes # (Auto) 1.63 K/uL (1.2-3.4) Monocytes # (Auto) 1.72 K/uL (0.11-0.59) Eosinophils # (Auto) 0.02 K/uL (0-0.5) Basophils # (Auto) 0.14 K/uL (0-0.2) RDW Standard Deviation 46.8 fL (36.4-46.3) RDW Coefficient of Variation 14.2 % (11.5-14.5) Immature Granulocyte % (Auto) 2.1 % Immature Granulocyte # (Auto) 0.82 K/uL (0.00-0.02) Toxic Granulation 3+ Toxic Vacuolation 1+ Anion Gap 8.0 mmol/L (3-11) Est Creatinine Clear Calc Drug Dose 58.0 ml/min Estimated GFR () 72.8 Estimated GFR (Non- 62.8 BUN/Creatinine Ratio 20.9 (10-20) Calcium Level 8.5 mg/dl (8.5-10.1) Magnesium Level 2.1 mg/dl (1.8-2.4) Test 12/01/17 16:58 Bedside Glucose 132 mg/dl (70-90) Date/Time Source Procedure Growth Status 11/29/17 15:50 Blood Blood Culture - Preliminary NO GROWTH TO DATE. Resulted 11/29/17 18:20 Nasal MRSA DNA Surveillance Screen - Final Specimen Negative for MRSA by DNA Probe Complete 12/01/17 09:00 Sputum Expectorated Sputum Gram Stain - Final Resulted 12/01/17 09:00 Sputum Expectorated Sputum Sputum Culture Pending Resulted 11/29/17 00:00 Urine,Catheterized Urine Culture - Final NO GROWTH - LESS THAN 1,000 COLONIES/ML Complete Last 24 Hours Test 12/01/17 00:51 12/01/17 05:54 12/01/17 16:58 Bedside Glucose 150 mg/dl 132 mg/dl White Blood Count 38.32 K/uL Red Blood Count 3.82 M/uL Hemoglobin 11.7 g/dL Hematocrit 34.5 % Mean Corpuscular Volume 90.3 fL Mean Corpuscular Hemoglobin 30.6 pg Mean Corpuscular Hemoglobin Concent 33.9 g/dl Platelet Count 319 K/uL Mean Platelet Volume 10.7 fL Neutrophils (%) (Auto) 88.6 % Lymphocytes (%) (Auto) 4.3 % Monocytes (%) (Auto) 4.5 % Eosinophils (%) (Auto) 0.1 % Basophils (%) (Auto) 0.4 % Neutrophils # (Auto) 33.99 K/uL Lymphocytes # (Auto) 1.63 K/uL Monocytes # (Auto) 1.72 K/uL Eosinophils # (Auto) 0.02 K/uL Basophils # (Auto) 0.14 K/uL RDW Standard Deviation 46.8 fL RDW Coefficient of Variation 14.2 % Immature Granulocyte % (Auto) 2.1 % Immature Granulocyte # (Auto) 0.82 K/uL Toxic Granulation 3+ Toxic Vacuolation 1+ Sodium Level 140 mmol/L Potassium Level 3.7 mmol/L Chloride Level 107 mmol/L Carbon Dioxide Level 25 mmol/L Anion Gap 8.0 mmol/L Blood Urea Nitrogen 20 mg/dl Creatinine 0.94 mg/dl Est Creatinine Clear Calc Drug Dose 58.0 ml/min Estimated GFR () 72.8 Estimated GFR (Non- 62.8 BUN/Creatinine Ratio 20.9 Random Glucose 107 mg/dl Calcium Level 8.5 mg/dl Magnesium Level 2.1 mg/dl Date/Time Source Procedure Growth Status 12/01/17 09:00 Sputum Expectorated Sputum Gram Stain - Final Resulted 12/01/17 09:00 Sputum Expectorated Sputum Sputum Culture Pending Resulted Assessment & Plan 67-year-old female presents with severe sepsis secondary to pneumonia she was initially sent to the ICU, treated with broad-spectrum antibiotics and resuscitated. She was transferred to the floor today. She reports some persistent cough but denies fevers and chills. She reports an improvement in her breathing and overall clinical status. Family was in the room and all questions answered. 1. Severe sepsis secondary to community-acquired pneumonia. Continues on Vanco and Zosyn with vancomycin. Appreciate pulmonary continuing to follow during this hospitalization. 2. AK I-resolved 3. COPD-possible exacerbation. Scattered wheezes heard on ICU examination today. Solu-Medrol added to regimen. Continue bronchodilator therapy. 4. Leukocytosis-likely multifactorial secondary to severe sepsis with stress response in addition to infection in the lungs. Steroids added to regimen will likely increase white count, however, hope this to improve as she continues to improve clinically. We will continue to monitor daily CBC. Of note patient denies any recent weight loss or B symptoms in the last 6 months. 5. Active tobacco user-smoking likely contributed to pneumonia above. Continue NicoDerm patch 6. Abdominal discomfort-poss 2/2 coughing excessively last night. In setting of leukocytosis, will obtain lipase. Patient is tolerating p.o. and reports eating without issue. DVT prophylaxis-heparin will be changed to Lovenox once daily Full code Disposition-to [facility] Scarlet Larsen DO [facility] hospitalist Consultants: Dr. Carrera Current Inpatient Medications: Current Inpatient Medications Medications (Trade) Dose Ordered Sig/Debo Route Start Time Stop Time Status Last Admin Dose Admin Heparin Sodium (Porcine) (Heparin Sq 5000 Unit/0.5ml) 5,000 unit Q8 SQ 11/29/17 18:30 12/29/17 18:29 12/01/17 14:14 5,000 UNIT Acetaminophen (Tylenol Tab) 650 mg Q4H PRN PO 11/29/17 17:30 12/29/17 17:29 Nitroglycerin (Nitrostat Tab) 0.4 mg UD PRN SL 11/29/17 17:30 12/29/17 17:29 Ipratropium [place] (Atrovent 0.02% 0.5MG/2.5ML Neb) 0.5 mg Q2R PRN INH 11/29/17 17:30 12/29/17 17:29 11/30/17 02:21 0.5 MG Levalbuterol (Xopenex 1.25MG/ 3ML Neb) 1.25 mg Q2R PRN INH 11/29/17 17:30 12/29/17 17:29 11/30/17 02:21 1.25 MG Ondansetron HCl (Zofran Inj) 4 mg Q6H PRN IV 11/29/17 17:30 12/29/17 17:29 Levalbuterol (Xopenex 1.25MG/ 0.5ML Neb) 1.25 mg QIDR INH 11/29/17 20:00 12/29/17 19:59 12/01/17 15:14 1.25 MG Ipratropium [place] (Atrovent 0.02% 0.5MG/2.5ML Neb) 0.5 mg QIDR INH 11/29/17 20:00 12/29/17 19:59 12/01/17 15:14 0.5 MG Allopurinol (Zyloprim Tab) 100 mg DAILY PO 11/30/17 09:00 12/30/17 08:59 12/01/17 08:22 100 MG Aspirin (Ecotrin Tab) 81 mg DAILY PO 11/30/17 09:00 12/30/17 08:59 12/01/17 08:44 81 MG Atorvastatin Calcium (Lipitor Tab) 10 mg DAILY PO 11/30/17 09:00 12/30/17 08:59 12/01/17 08:44 10 MG Lorazepam (Ativan Tab) 1 mg BID PRN PO 11/29/17 17:30 12/29/17 17:29 11/29/17 22:32 1 MG Metronidazole HCl (Metrogel Topical Gel) 1 appln BID TOP 11/29/17 21:00 12/09/17 20:59 12/01/17 08:45 1 APPLN Montelukast Sodium (Singulair Tab) 10 mg DAILY PO 11/30/17 09:00 12/30/17 08:59 12/01/17 08:44 10 MG Multivitamins (Multivitamin Tab) 1 tab QAM PO 11/30/17 09:00 12/30/17 08:59 12/01/17 08:44 1 TAB Trazodone HCl (Desyrel Tab) 100 mg HS PO 11/29/17 21:00 12/29/17 20:59 11/30/17 20:28 100 MG Venlafaxine HCl (effeXOR EXTENDED REL CAP) 150 mg BID PO 11/29/17 21:00 12/29/17 20:59 12/01/17 08:44 150 MG Bupropion HCl (Wellbutrin-Xl Tab) 150 mg DAILY PO 11/30/17 09:00 12/30/17 08:59 12/01/17 08:44 150 MG Sodium Chloride 1,000 ml @ 50 mls/hr Q20H IV 11/29/17 19:00 12/29/17 18:59 12/01/17 08:20 50 MLS/HR Piperacillin Sod/ Tazobactam Sod 4.5 gm/Dextrose 120 ml @ 28.75 mls/ hr Q8H IV 11/29/17 22:00 12/09/17 15:59 12/01/17 14:33 28.75 MLS/HR Miscellaneous Information (Consult) 1 ea UD PRN N/A 11/29/17 18:15 12/29/17 18:14 Nicotine (Nicoderm Cq 14MG Patch) 1 patch QAM TD 11/30/17 09:00 12/30/17 08:59 12/01/17 14:34 1 PATCH Miscellaneous (Remove Nicoderm Patch) 1 ea HS N/A 11/30/17 21:00 12/30/17 20:59 11/30/17 21:22 1 EA Ioversol (Optiray 320) 125 ml UD PRN IV 11/30/17 10:30 12/04/17 10:29 Lisdexamfetamine Dimesylate (Vyvanse) 30 mg DAILY PO 12/02/17 09:00 12/14/17 00:00 Vancomycin HCl 1000 mg/Sodium Chloride 270 ml @ 125 mls/hr Q16H IV 12/02/17 04:00 12/09/17 03:59 Miscellaneous Information (Consult) 1 ea UD PRN N/A 12/01/17 13:15 12/31/17 13:14 Pantoprazole Sodium (Protonix Tab) 40 mg QAM PO 12/02/17 09:00 01/01/18 08:59 Non-Formulary Medication (Patient'S Own Controlled Med) 1 ea DAILY PO 12/02/17 09:00 12/16/17 08:59
[2017-12-01] MEDS ORDERED: GUAIFENESIN/CODEINE 200MG/20MG 10ML UDC PO PRN (18:15)
[2017-12-01] MEDS ORDERED: POLYETHYLENE (MIRALAX) 17 GM PACK PO PRN (18:15)
[2017-12-01] MEDS: TRAZODONE HCL 100 MG TAB PO SCH (21:10)
--- NOTE | 2017-12-01 21:13 | Progress Note ---
Post ICU Progress Note Date & Time Dec 01, 2017 at 21:13 Vital Signs Vital Signs Past 12 Hours Date Time Temp Pulse Resp B/P (MAP) Pulse Ox O2 Delivery O2 Flow Rate FiO2 12/01/17 19:51 100 22 93 Nasal Cannula 4.0 12/01/17 16:00 94 Nasal Cannula 4.0 12/01/17 15:25 36.7 93 18 138/75 (96) 94 4.0 12/01/17 15:15 96 20 94 Nasal Cannula 4.0 12/01/17 11:49 36.4 92 18 135/79 (97) 97 2.0 12/01/17 11:49 97 Nasal Cannula 2.0 12/01/17 11:06 86 20 91 Nasal Cannula 4.0 12/01/17 09:26 36.4 110 22 92 4.0 12/01/17 09:15 104 20 91 Nasal Cannula 4.0 Notes Mental Status: alert / awake Nausea / Vomiting: adequately controlled Pain: adequately controlled Airway Patency, RR, SpO2: see Notes BP & HR: stable & adequate Patient is a 67-year-old female who was initially admitted to the ICU for severe sepsis from an RIGHT lower lobe pneumonia. Her symptoms greatly improved throughout her stay, and she was eventually downgraded. She was found to have possible early necrotizing area to the lung field. Because of this, she is following closely with pulmonology services. Her antibiotics have been changed slightly and vancomycin was added. On evaluation today, the patient is resting comfortably. She is requesting humidified oxygen as discussed with provider earlier today. I had a lengthy conversation with her and her regarding questions related to her current state of illness. All questions were answered and patient and family member were comfortable with current treatment plan. I did review orders and the patient did have a modified oxygen ordered. I did maintain that nursing staff did provide this as requested. Consider outpatient follow up in 1 to 2 weeks with: Pulmonology, PCP Repeat imaging needed: CT of the chest in 1 month for evaluation of RLL ? necrotic area Follow up cultures: None at this time. Reviewed progress notes, labs, and inpatient medication list Continue current management Additional recommendations: Repeat CT per suggestion on CTA read. Please feel free to reconsult as needed.
[2017-12-01] MEDS: LORAZEPAM 1 MG TAB PO PRN (21:26)
[2017-12-01] MEDS ORDERED: FUROSEMIDE 40 MG/4 ML VIAL ONE (23:57)
[2017-12-02] VITALS (10 sets, daily range): BP systolic 146; BP diastolic 78–79; PULSE 92–118; TEMP 36.7–36.8; O2SAT 92–97
[2017-12-02] MEDS ORDERED: FUROSEMIDE INJ 20 MG in SYRINGE 0 ML IV ONE
[2017-12-02] MEDS ORDERED: FUROSEMIDE INJ 20 MG in SYRINGE 0 ML IV STA (00:44)
[2017-12-02] MEDS: VANCOMYCIN IV 1,000 MG in SODIUM CHLORIDE 0.9% 250ML 250 ML IV SCH ×2 (04:20→20:03)
[2017-12-02] MEDS: HEPARIN SOD 5000 UNIT/0.5 ML CARP SQ SCH ×2 (06:29→13:51)
--- NOTE | 2017-12-02 06:35 | DIAGNOSTIC IMAGING REPORT ---
CHEST ONE VIEW PORTABLE CLINICAL HISTORY: hypoxia dyspnea COMPARISON STUDY: 12/01/2017 FINDINGS: Unchanging consolidative infiltrative type process right base. Small right effusion. Unchanging diffuse parenchymal infiltrative process left hemithorax and to a lesser extent right upper lung. Mild stable cardiomegaly. IMPRESSION: Bilateral parenchymal infiltrative change unaltered from the prior study. The above report was generated using voice recognition software. It may contain grammatical, syntax or spelling errors. Electronically signed by: Collin Nam M.D. 12/02/2017 6:33 AM Dictated Date/Time: 12/02/2017 6:33 AM
[2017-12-02] MEDS: LEVALBUTEROL 1.25MG/0.5ML NEB INH SCH ×4 (07:14→19:41)
[2017-12-02] MEDS: IPRATROPIUM BROMIDE NEB SOLN 0.02% 2.5 ML VIAL INH SCH ×4 (07:14→19:41)
[2017-12-02 07:30] LABS: MEAN CORPUSCULAR HGB CONC 33.9 g/dl (32-36); MEAN PLATELET VOLUME 10.5 fL (7.4-10.4); PLATELET COUNT 306 K/uL (130-400)
[2017-12-02] MEDS: PIPERACILL/TAZOBAC IV 4.5 GM in DEXTROSE 5% 100ML 100 ML IV SCH ×3 (07:34→22:10)
[2017-12-02 08:04] LABS: ALBUMIN 1.9 gm/dl (3.4-5.0); CALCIUM 8.6 mg/dl (8.5-10.1); CREATININE 0.93 mg/dl (0.60-1.20); POTASSIUM 3.3 mmol/L (3.5-5.1)
[2017-12-02 08:07] LABS: TOTAL PROTEIN 6.8 gm/dl (6.4-8.2)
[2017-12-02 08:48] LABS: HEMATOCRIT 37.2 % (37-47); HEMOGLOBIN 12.6 g/dL (12.0-16.0); MEAN CELL VOLUME 91.4 fL (80-100); RED CELL DISTRIBUTION WIDTH CV 14.7 % (11.5-14.5); RED CELL DISTRIBUTION WIDTH SD 49.2 fL (36.4-46.3); WHITE BLOOD COUNT 21.42 K/uL (4.8-10.8)
[2017-12-02] MEDS: MONTELUKAST SOD 10 MG TAB PO SCH (09:00)
[2017-12-02] MEDS: BuPROPion XL 150 MG TABCR PO SCH (09:00)
[2017-12-02] MEDS: MULTIVITAMIN TAB PO SCH (09:00)
[2017-12-02] MEDS: ATORVASTATIN 10 MG TAB PO SCH (09:00)
[2017-12-02] MEDS: ALLOPURINOL 100 MG TAB PO SCH (09:00)
[2017-12-02] MEDS: VENLAFAXINE HCL XR 150 MG CAPXR PO SCH ×2 (09:01→20:48)
[2017-12-02] MEDS: ASPIRIN 81 MG ECTAB PO SCH (09:01)
[2017-12-02] MEDS: PANTOprazole SOD 40 MG TAB PO SCH (09:01)
[2017-12-02] MEDS: PATIENT'S OWN CONTROLLED MED PO SCH (09:08)
[2017-12-02] MEDS: LISDEXAMFETAMINE DIMESYLATE 30 MG CAP PO SCH (09:10)
[2017-12-02] MEDS: METRONIDAZOLE 0.75% TOPICAL GEL 45 GM TUBE TOP SCH ×2 (09:10→20:48)
[2017-12-02] MEDS ORDERED: POTASSIUM CHLORIDE 20 MEQ TABCR PO ONE (09:15)
[2017-12-02] MEDS: NICOTINE 14 MG/24 HR TDSY TD SCH (10:10)
[2017-12-02] MEDS ORDERED: NURSING VERBAL MED ORDER ONE (14:00)
--- NOTE | 2017-12-02 16:29 | Progress Note ---
Medicine Progress Note Date & Time of Visit: Dec 02, 2017 at 13:25. Subjective 67-year-old female presents with severe sepsis secondary to pneumonia she was initially sent to the ICU, treated with broad-spectrum antibiotics and resuscitated. She was transferred to the floor on 12/01. She reports improvement in her cough overnight and denies fevers and chills. She is tolerating p.o. She reports ambulating to the bathroom today without issue. She had a BM today as well. Objective Last 8 Hrs Date Time Temp Pulse Resp B/P (MAP) Pulse Ox O2 Delivery O2 Flow Rate FiO2 12/02/17 11:23 101 22 97 Nasal Cannula 5.0 12/02/17 08:00 93 Nasal Cannula 2.0 12/02/17 07:14 106 22 94 Nasal Cannula 5.0 12/02/17 07:04 36.8 108 22 146/79 (101) 95 5.0 Physical Exam: GEN: WNWD, in no acute distress, alert and appropriate HEENT: NC/AT, normal sclerae, MMM CARDIO: reg rate, S1/2 heard without m/g/r LUNGS: Rales in right upper lobe, no wheezing, otherwise clear lungs throughout with mild crackles at right base. ABD: soft, mild TTP in RUQ/epigastric area, +BS, soft, non-distended EXTREMITY: RP and DP palpable 2+ bilat, no LE swelling or edema, extremities are warm and well-perfused NEURO: CN 2-12 grossly intact, no gross focal deficits. MUSC: moves all extremities equally, generalized weakness noted. SKIN: warm and dry Laboratory Results: 12/02/17 06:46 Red Blood Count 4.07, Mean Corpuscular Volume 91.4, Mean Corpuscular Hemoglobin 31.0, Mean Corpuscular Hemoglobin Concent 33.9, Mean Platelet Volume 10.5 12/02/17 06:46 Test 11/29/17 00:00 11/29/17 15:48 11/29/17 16:03 11/29/17 16:20 Urine Color DK YELLOW Urine Appearance CLOUDY (CLEAR) Urine pH 5.0 (4.5-7.5) Urine Specific [place] 1.011 (1.000-1.030) Urine Protein NEG (NEG) Urine Glucose (UA) NEG (NEG) Urine Ketones NEG (NEG) Urine Occult Blood NEG (NEG) Urine Nitrite POS (NEG) Urine Bilirubin NEG (NEG) Urine Urobilinogen NEG (NEG) Urine Leukocyte Esterase MODERATE (NEG) Urine WBC (Auto) /hpf (0-5) Urine RBC (Auto) /hpf (0-4) Urine Hyaline Casts (Auto) /lpf (0-5) Urine Epithelial Cells (Auto) /lpf (0-5) Urine Bacteria (Auto) (NEG) Urine RBC 0-4 /hpf (0-4) Urine WBC 5-10 /hpf (0-5) Urine Epithelial Cells 0-5 /lpf (0-5) Urine Renal Epithelial Cells /lpf (0-5) Urine Renal Cells 0-5 /lpf (FEW) Urine Amorphous Sediment PRESENT (NONE PRSENT) Urine Bacteria 1+ (NEG) Urine Pathogenic Casts /lpf (0) Troponin I < 0.015 ng/ml (0-0.045) Chemistry Specimen Hemolysis Bedside Lactic Acid Venous 5.22 mmol/L (0.90-1.70) Influenza Type A (RT-PCR) Neg for Influ A (NEG) Influenza Type B (RT-PCR) Neg for Influ B (NEG) Test 11/29/17 22:36 11/30/17 05:39 11/30/17 11:48 12/01/17 05:54 Prothrombin Time 12.0 SECONDS (9.0-12.0) Prothromb Time International Ratio 1.1 (0.9-1.1) Activated Partial Thromboplast Time 32.4 SECONDS (21.0-31.0) Partial Thromboplastin Ratio 1.2 Dohle Bodies 1+ Phosphorus Level 4.5 mg/dl (2.5-4.9) Lactic Acid Level 3.0 mmol/L (0.4-2.0) Immature Granulocyte % (Auto) 2.1 % White Blood Count 38.32 K/uL (4.8-10.8) Red Blood Count 3.82 M/uL (4.2-5.4) Hemoglobin 11.7 g/dL (12.0-16.0) Hematocrit 34.5 % (37-47) Mean Corpuscular Volume 90.3 fL (80-100) Mean Corpuscular Hemoglobin 30.6 pg (25-34) Mean Corpuscular Hemoglobin Concent 33.9 g/dl (32-36) Platelet Count 319 K/uL (130-400) Mean Platelet Volume 10.7 fL (7.4-10.4) Neutrophils (%) (Auto) 88.6 % Lymphocytes (%) (Auto) 4.3 % Monocytes (%) (Auto) 4.5 % Eosinophils (%) (Auto) 0.1 % Basophils (%) (Auto) 0.4 % Neutrophils # (Auto) 33.99 K/uL (1.4-6.5) Lymphocytes # (Auto) 1.63 K/uL (1.2-3.4) Monocytes # (Auto) 1.72 K/uL (0.11-0.59) Eosinophils # (Auto) 0.02 K/uL (0-0.5) Basophils # (Auto) 0.14 K/uL (0-0.2) Immature Granulocyte # (Auto) 0.82 K/uL (0.00-0.02) Toxic Vacuolation 1+ Magnesium Level 2.1 mg/dl (1.8-2.4) Test 12/02/17 06:46 12/02/17 07:34 White Blood Count 21.42 K/uL (4.8-10.8) Red Blood Count 4.07 M/uL (4.2-5.4) Hemoglobin 12.6 g/dL (12.0-16.0) Hematocrit 37.2 % (37-47) Mean Corpuscular Volume 91.4 fL (80-100) Mean Corpuscular Hemoglobin 31.0 pg (25-34) Mean Corpuscular Hemoglobin Concent 33.9 g/dl (32-36) Platelet Count 306 K/uL (130-400) Mean Platelet Volume 10.5 fL (7.4-10.4) RDW Standard Deviation 49.2 fL (36.4-46.3) RDW Coefficient of Variation 14.7 % (11.5-14.5) Neutrophils % (Manual) 84.3 % Lymphocytes % (Manual) 7.8 % Monocytes % (Manual) 0.9 % Eosinophils % (Manual) 0.9 % Metamyelocytes % 2.6 % Myelocytes % 2.6 % Promyelocytes % 0.9 % Neutrophils # (Manual) 18.06 K/uL (1.4-6.5) Total Absolute Neutrophils 18.06 K/uL (1.4-6.5) Lymphocytes # (Manual) 1.67 K/uL (1.2-3.4) Total Absolute Lymphocytes 1.67 K/uL (1.2-3.4) Monocytes # (Manual) 0.19 K/uL (0.11-0.59) Eosinophils # (Manual) 0.19 K/uL (0-0.5) Metamyelocytes # 0.56 K/uL (0-0) Myelocytes # 0.56 K/uL (0-0) Promyelocytes # 0.19 K/uL (0-0) Blood Smear Review Toxic Granulation 3+ Anion Gap 7.0 mmol/L (3-11) Est Creatinine Clear Calc Drug Dose 58.6 ml/min Estimated GFR () 73.7 Estimated GFR (Non- 63.6 BUN/Creatinine Ratio 20.6 (10-20) Calcium Level 8.6 mg/dl (8.5-10.1) Total Bilirubin 0.5 mg/dl (0.2-1) Direct Bilirubin 0.2 mg/dl (0-0.2) Aspartate Amino Transf (AST/SGOT) 86 U/L (15-37) Alanine Aminotransferase (ALT/SGPT) 71 U/L (12-78) Alkaline Phosphatase 285 U/L (45-117) Total Protein 6.8 gm/dl (6.4-8.2) Albumin 1.9 gm/dl (3.4-5.0) Lipase 225 U/L (73-393) Bedside Glucose 85 mg/dl (70-90) Date/Time Source Procedure Growth Status 11/29/17 15:50 Blood Blood Culture - Preliminary NO GROWTH TO DATE. Resulted 11/29/17 18:20 Nasal MRSA DNA Surveillance Screen - Final Specimen Negative for MRSA by DNA Probe Complete 12/01/17 09:00 Sputum Expectorated Sputum Gram Stain - Final Resulted 12/01/17 09:00 Sputum Expectorated Sputum Sputum Culture - Preliminary LIGHT NORMAL [place] Present, Final Rep... Resulted 11/29/17 00:00 Urine,Catheterized Urine Culture - Final NO GROWTH - LESS THAN 1,000 COLONIES/ML Complete Last 24 Hours Test 12/01/17 16:58 12/01/17 20:17 12/02/17 06:46 12/02/17 07:34 Bedside Glucose 132 mg/dl 111 mg/dl 85 mg/dl White Blood Count 21.42 K/uL Red Blood Count 4.07 M/uL Hemoglobin 12.6 g/dL Hematocrit 37.2 % Mean Corpuscular Volume 91.4 fL Mean Corpuscular Hemoglobin 31.0 pg Mean Corpuscular Hemoglobin Concent 33.9 g/dl Platelet Count 306 K/uL Mean Platelet Volume 10.5 fL RDW Standard Deviation 49.2 fL RDW Coefficient of Variation 14.7 % Neutrophils % (Manual) 84.3 % Lymphocytes % (Manual) 7.8 % Monocytes % (Manual) 0.9 % Eosinophils % (Manual) 0.9 % Metamyelocytes % 2.6 % Myelocytes % 2.6 % Promyelocytes % 0.9 % Neutrophils # (Manual) 18.06 K/uL Total Absolute Neutrophils 18.06 K/uL Lymphocytes # (Manual) 1.67 K/uL Total Absolute Lymphocytes 1.67 K/uL Monocytes # (Manual) 0.19 K/uL Eosinophils # (Manual) 0.19 K/uL Metamyelocytes # 0.56 K/uL Myelocytes # 0.56 K/uL Promyelocytes # 0.19 K/uL Toxic Granulation 3+ Sodium Level 138 mmol/L Potassium Level 3.3 mmol/L Chloride Level 99 mmol/L Carbon Dioxide Level 32 mmol/L Anion Gap 7.0 mmol/L Blood Urea Nitrogen 19 mg/dl Creatinine 0.93 mg/dl Est Creatinine Clear Calc Drug Dose 58.6 ml/min Estimated GFR () 73.7 Estimated GFR (Non- 63.6 BUN/Creatinine Ratio 20.6 Random Glucose 74 mg/dl Calcium Level 8.6 mg/dl Total Bilirubin 0.5 mg/dl Direct Bilirubin 0.2 mg/dl Aspartate Amino Transf (AST/SGOT) 86 U/L Alanine Aminotransferase (ALT/SGPT) 71 U/L Alkaline Phosphatase 285 U/L Total Protein 6.8 gm/dl Albumin 1.9 gm/dl Lipase 225 U/L Assessment & Plan 67-year-old female presents with severe sepsis secondary to pneumonia she was initially sent to the ICU, treated with broad-spectrum antibiotics and resuscitated. She was transferred to the floor on 12/01. She reports improvement in her cough overnight and denies fevers and chills. She is tolerating p.o. She reports ambulating to the bathroom today without issue. She had a BM today as well. 1. Severe sepsis secondary to community-acquired pneumonia. Continues on Vanco and Zosyn with improvement clinically and reduction in leukocytosis. Hypoxia is improving closer to her baseline which is using 2 L at night only. Overnight patient denied respiratory distress however nurses were concerned and dog overnight gave Lasix out of concern for volume overload. 2. AK I-resolved 3. COPD-stable, no wheezes heard on exam. Solu-Medrol did not get added to regimen yesterday with clinical improvement inpatient. We will not add steroids at this time. Continue bronchodilator therapy. 4. Leukocytosis-likely multifactorial secondary to severe sepsis with stress response in addition to infection in the lungs. Improved to 21K today, which corresponds to clinical improvement and patient. CBC in a.m. 5. Active tobacco user-smoking likely contributed to pneumonia above. Continue NicoDerm patch 6. Abdominal discomfort-resolved. Poss 2/2 coughing excessively. 7. Hypokalemia-likely related to diuretics given overnight. Replace and check PRP in a.m. DVT prophylaxis-Lovenox Full code Disposition-to [facility] Scarlet Larsen DO [facility] hospitalist Consultants: Dr. Hardy-pul Current Inpatient Medications: Current Inpatient Medications Medications (Trade) Dose Ordered Sig/Debo Route Start Time Stop Time Status Last Admin Dose Admin Heparin Sodium (Porcine) (Heparin Sq 5000 Unit/0.5ml) 5,000 unit Q8 SQ 11/29/17 18:30 12/29/17 18:29 12/02/17 06:29 5,000 UNIT Acetaminophen (Tylenol Tab) 650 mg Q4H PRN PO 11/29/17 17:30 12/29/17 17:29 Nitroglycerin (Nitrostat Tab) 0.4 mg UD PRN SL 11/29/17 17:30 12/29/17 17:29 Ipratropium [place] (Atrovent 0.02% 0.5MG/2.5ML Neb) 0.5 mg Q2R PRN INH 11/29/17 17:30 18 17:29 11/30/17 02:21 0.5 MG Levalbuterol (Xopenex 1.25MG/ 3ML Neb) 1.25 mg Q2R PRN INH 3/18/18 17:30 12/29/17 17:29 11/30/17 02:21 1.25 MG Ondansetron HCl (Zofran Inj) 4 mg Q6H PRN IV 11/29/17 17:30 12/29/17 17:29 Levalbuterol (Xopenex 1.25MG/ 0.5ML Neb) 1.25 mg QIDR INH 11/29/17 20:00 12/29/17 19:59 12/02/17 11:23 1.25 MG Ipratropium [place] (Atrovent 0.02% 0.5MG/2.5ML Neb) 0.5 mg QIDR INH 11/29/17 20:00 12/29/17 19:59 12/02/17 11:23 0.5 MG Allopurinol (Zyloprim Tab) 100 mg DAILY PO 11/30/17 09:00 12/30/17 08:59 12/02/17 09:00 100 MG Aspirin (Ecotrin Tab) 81 mg DAILY PO 11/30/17 09:00 12/30/17 08:59 12/02/17 09:01 81 MG Atorvastatin Calcium (Lipitor Tab) 10 mg DAILY PO 11/30/17 09:00 12/30/17 08:59 12/02/17 09:00 10 MG Lorazepam (Ativan Tab) 1 mg BID PRN PO 11/29/17 17:30 12/29/17 17:29 12/01/17 21:26 1 MG Metronidazole HCl (Metrogel Topical Gel) 1 appln BID TOP 11/29/17 21:00 12/09/17 20:59 12/02/17 09:10 1 APPLN Montelukast Sodium (Singulair Tab) 10 mg DAILY PO 11/30/17 09:00 12/30/17 08:59 12/02/17 09:00 10 MG Multivitamins (Multivitamin Tab) 1 tab QAM PO 11/30/17 09:00 12/30/17 08:59 12/02/17 09:00 1 TAB Trazodone HCl (Desyrel Tab) 100 mg HS PO 11/29/17 21:00 12/29/17 20:59 12/01/17 21:10 100 MG Venlafaxine HCl (effeXOR EXTENDED REL CAP) 150 mg BID PO 11/29/17 21:00 12/29/17 20:59 12/02/17 09:01 150 MG Bupropion HCl (Wellbutrin-Xl Tab) 150 mg DAILY PO 11/30/17 09:00 12/30/17 08:59 12/02/17 09:00 150 MG Piperacillin Sod/ Tazobactam Sod 4.5 gm/Dextrose 120 ml @ 28.75 mls/ hr Q8H IV 11/29/17 22:00 12/09/17 15:59 12/02/17 07:34 28.75 MLS/HR Miscellaneous Information (Consult) 1 ea UD PRN N/A 11/29/17 18:15 12/29/17 18:14 Nicotine (Nicoderm Cq 14MG Patch) 1 patch QAM TD 11/30/17 09:00 12/30/17 08:59 12/01/17 14:34 1 PATCH Miscellaneous (Remove Nicoderm Patch) 1 ea HS N/A 11/30/17 21:00 12/30/17 20:59 12/01/17 22:51 1 EA Ioversol (Optiray 320) 125 ml UD PRN IV 11/30/17 10:30 12/04/17 10:29 Lisdexamfetamine Dimesylate (Vyvanse) 30 mg DAILY PO 12/02/17 09:00 12/14/17 00:00 12/02/17 09:10 30 MG Vancomycin HCl 1000 mg/Sodium Chloride 270 ml @ 125 mls/hr Q16H IV 12/02/17 04:00 12/09/17 03:59 12/02/17 04:20 125 MLS/HR Miscellaneous Information (Consult) 1 ea UD PRN N/A 12/01/17 13:15 12/31/17 13:14 Pantoprazole Sodium (Protonix Tab) 40 mg QAM PO 12/02/17 09:00 01/01/18 08:59 12/02/17 09:01 40 MG Non-Formulary Medication (Patient'S Own Controlled Med) 1 ea DAILY PO 12/02/17 09:00 12/16/17 08:59 12/02/17 09:08 1 EA Polyethylene (Miralax Powder Packet) 17 gm DAILY PRN PO 12/01/17 18:15 12/31/17 18:14 Codeine Phosphate/ Guaifenesin (Robitussin-AC Sugar Free Syrup) 10 ml Q6H PRN PO 12/01/17 18:15 12/31/17 18:14
--- NOTE | 2017-12-02 19:24 | Pulmonology Progress Note ---
Pulmonary Progress Note Date of Service Dec 02, 2017. Attending Dr. Hardy Subjective Patient seen and examined at bedside as she was eating dinner. Lengthy discussion with no apparent dyspnea. She denies any difficulty with dysphagia or aspiration. She is using a vibratory vest and has considerable increase in her sputum production. Color sputum is murrell and sometimes dark. She denies any hemoptysis. Tolerating the vibratory vest. No chest pain or back pain. Continues to be a daily smoker. Objective GENERAL : No acute distress. Eating dinner EYES: No icterus, gaze conjugate NOSE: No evidence of epistaxis. Nasal cannula in place MOUTH: No lesions or candidiasis NECK: Supple. No stridor LUNGS: Decreased bilaterally with bibasilar rales. Scattered wheezes. HEART: Regular, rate controlled ABDOMEN: Soft, NT, ND, BS Present EXTREMITIES: No LE edema, pedal pulses intact NEURO: A&OX3 Assessment & Plan COMMUNITY-ACQUIRED PNEUMONIA * Continue with antibiotics. Vancomycin added on 12/01/2017. Currently on ceftriaxone doxycycline and vancomycin * Continue Solu-Medrol * Nasal probe negative for MRSA * Sputum culture with light normal cristela * White count dropped to 21.42 from 38.32 with the addition of vancomycin * Continue to follow clinically COPD * Gold level 3 * Continue bronchodilators * Continue to treat underlying pneumonia * Continue supplemental oxygen * Continue with pulmonary toilet including vibratory vest * Follow clinically MEDIASTINAL LYMPHADENOPATHY * Most likely due to acute pneumonia * Will require outpatient follow-up with pulmonary * Will schedule appointment prior to discharge DVT PROPHYLAXIS * Heparin 5000 units subcutaneously every 8 hours Thank you very much for including us in the care of this patient. Please refer to Dr. Hardy's addendum for further recommendations. We will continue to follow along with you Data Medications: Current Inpatient Medications Medications (Trade) Dose Ordered Sig/Debo Route Start Time Stop Time Status Last Admin Dose Admin Acetaminophen (Tylenol Tab) 650 mg Q4H PRN PO 11/29/17 17:30 12/29/17 17:29 Nitroglycerin (Nitrostat Tab) 0.4 mg UD PRN SL 11/29/17 17:30 12/29/17 17:29 Ipratropium Wilder (Atrovent 0.02% 0.5MG/2.5ML Neb) 0.5 mg Q2R PRN INH 11/29/17 17:30 12/29/17 17:29 11/30/17 02:21 0.5 MG Levalbuterol (Xopenex 1.25MG/ 3ML Neb) 1.25 mg Q2R PRN INH 11/29/17 17:30 12/29/17 17:29 11/30/17 02:21 1.25 MG Ondansetron HCl (Zofran Inj) 4 mg Q6H PRN IV 11/29/17 17:30 12/29/17 17:29 Levalbuterol (Xopenex 1.25MG/ 0.5ML Neb) 1.25 mg QIDR INH 11/29/17 20:00 12/29/17 19:59 12/02/17 15:09 1.25 MG Ipratropium Wilder (Atrovent 0.02% 0.5MG/2.5ML Neb) 0.5 mg QIDR INH 11/29/17 20:00 12/29/17 19:59 12/02/17 15:08 0.5 MG Allopurinol (Zyloprim Tab) 100 mg DAILY PO 11/30/17 09:00 12/30/17 08:59 12/02/17 09:00 100 MG Aspirin (Ecotrin Tab) 81 mg DAILY PO 11/30/17 09:00 12/30/17 08:59 12/02/17 09:01 81 MG Atorvastatin Calcium (Lipitor Tab) 10 mg DAILY PO 11/30/17 09:00 12/30/17 08:59 12/02/17 09:00 10 MG Lorazepam (Ativan Tab) 1 mg BID PRN PO 11/29/17 17:30 12/29/17 17:29 12/01/17 21:26 1 MG Metronidazole HCl (Metrogel Topical Gel) 1 appln BID TOP 11/29/17 21:00 12/09/17 20:59 12/02/17 09:10 1 APPLN Montelukast Sodium (Singulair Tab) 10 mg DAILY PO 11/30/17 09:00 12/30/17 08:59 12/02/17 09:00 10 MG Multivitamins (Multivitamin Tab) 1 tab QAM PO 11/30/17 09:00 12/30/17 08:59 12/02/17 09:00 1 TAB Trazodone HCl (Desyrel Tab) 100 mg HS PO 11/29/17 21:00 12/29/17 20:59 12/01/17 21:10 100 MG Venlafaxine HCl (effeXOR EXTENDED REL CAP) 150 mg BID PO 11/29/17 21:00 12/29/17 20:59 12/02/17 09:01 150 MG Bupropion HCl (Wellbutrin-Xl Tab) 150 mg DAILY PO 11/30/17 09:00 12/30/17 08:59 12/02/17 09:00 150 MG Piperacillin Sod/ Tazobactam Sod 4.5 gm/Dextrose 120 ml @ 28.75 mls/ hr Q8H IV 11/29/17 22:00 12/09/17 15:59 12/02/17 13:50 28.75 MLS/HR Miscellaneous Information (Consult) 1 ea UD PRN N/A 11/29/17 18:15 12/29/17 18:14 Miscellaneous (Remove Nicoderm Patch) 1 ea HS N/A 11/30/17 21:00 12/30/17 20:59 12/01/17 22:51 1 EA Ioversol (Optiray 320) 125 ml UD PRN IV 11/30/17 10:30 12/04/17 10:29 Lisdexamfetamine Dimesylate (Vyvanse) 30 mg DAILY PO 12/02/17 09:00 12/14/17 00:00 12/02/17 09:10 30 MG Vancomycin HCl 1000 mg/Sodium Chloride 270 ml @ 125 mls/hr Q16H IV 12/02/17 04:00 12/09/17 03:59 12/02/17 04:20 125 MLS/HR Miscellaneous Information (Consult) 1 ea UD PRN N/A 12/01/17 13:15 12/31/17 13:14 Pantoprazole Sodium (Protonix Tab) 40 mg QAM PO 12/02/17 09:00 01/01/18 08:59 12/02/17 09:01 40 MG Non-Formulary Medication (Patient'S Own Controlled Med) 1 ea DAILY PO 12/02/17 09:00 12/16/17 08:59 12/02/17 09:08 1 EA Polyethylene (Miralax Powder Packet) 17 gm DAILY PRN PO 12/01/17 18:15 12/31/17 18:14 Codeine Phosphate/ Guaifenesin (Robitussin-AC Sugar Free Syrup) 10 ml Q6H PRN PO 12/01/17 18:15 12/31/17 18:14 Nicotine (Nicoderm Cq 14MG Patch) 1 patch QAM TD 12/02/17 14:15 01/01/18 14:14 12/02/17 10:10 1 PATCH Enoxaparin Sodium (Lovenox Inj) 40 mg QAM SQ 12/03/17 09:00 01/02/18 08:59 I & O: 24-Hour Column 12/03/17 07:59 Intake Total 190 ml Output Total 3000 ml Balance -2810 ml Vital Signs: Date Time Temp Pulse Resp B/P (MAP) Pulse Ox O2 Delivery O2 Flow Rate FiO2 12/02/17 16:00 95 Nasal Cannula 2.0 12/02/17 15:09 118 18 93 Nasal Cannula 2.0 12/02/17 14:15 36.7 92 18 146/78 (100) 95 12/02/17 11:23 101 22 97 Nasal Cannula 5.0 12/02/17 08:00 93 Nasal Cannula 2.0 12/02/17 07:14 106 22 94 Nasal Cannula 5.0 12/02/17 07:04 36.8 108 22 146/79 (101) 95 5.0 12/02/17 02:40 107 20 94 Nasal Cannula 5.0 12/02/17 00:00 92 Nasal Cannula 6.0 12/01/17 23:40 92 Nasal Cannula 6.0 12/01/17 23:40 107 24 88 Nasal Cannula 4.0 12/01/17 23:37 37.0 105 24 165/79 (107) 91 Nasal Cannula 4.0 12/01/17 19:51 100 22 93 Nasal Cannula 4.0 Laboratory Results: Last 24 Hours Test 12/01/17 20:17 12/02/17 06:46 12/02/17 07:34 Bedside Glucose 111 mg/dl 85 mg/dl White Blood Count 21.42 K/uL Red Blood Count 4.07 M/uL Hemoglobin 12.6 g/dL Hematocrit 37.2 % Mean Corpuscular Volume 91.4 fL Mean Corpuscular Hemoglobin 31.0 pg Mean Corpuscular Hemoglobin Concent 33.9 g/dl Platelet Count 306 K/uL Mean Platelet Volume 10.5 fL RDW Standard Deviation 49.2 fL RDW Coefficient of Variation 14.7 % Neutrophils % (Manual) 84.3 % Lymphocytes % (Manual) 7.8 % Monocytes % (Manual) 0.9 % Eosinophils % (Manual) 0.9 % Metamyelocytes % 2.6 % Myelocytes % 2.6 % Promyelocytes % 0.9 % Neutrophils # (Manual) 18.06 K/uL Total Absolute Neutrophils 18.06 K/uL Lymphocytes # (Manual) 1.67 K/uL Total Absolute Lymphocytes 1.67 K/uL Monocytes # (Manual) 0.19 K/uL Eosinophils # (Manual) 0.19 K/uL Metamyelocytes # 0.56 K/uL Myelocytes # 0.56 K/uL Promyelocytes # 0.19 K/uL Blood Smear Review Toxic Granulation 3+ Sodium Level 138 mmol/L Potassium Level 3.3 mmol/L Chloride Level 99 mmol/L Carbon Dioxide Level 32 mmol/L Anion Gap 7.0 mmol/L Blood Urea Nitrogen 19 mg/dl Creatinine 0.93 mg/dl Est Creatinine Clear Calc Drug Dose 58.6 ml/min Estimated GFR () 73.7 Estimated GFR (Non- 63.6 BUN/Creatinine Ratio 20.6 Random Glucose 74 mg/dl Calcium Level 8.6 mg/dl Total Bilirubin 0.5 mg/dl Direct Bilirubin 0.2 mg/dl Aspartate Amino Transf (AST/SGOT) 86 U/L Alanine Aminotransferase (ALT/SGPT) 71 U/L Alkaline Phosphatase 285 U/L Total Protein 6.8 gm/dl Albumin 1.9 gm/dl Lipase 225 U/L
[2017-12-02] MEDS: TRAZODONE HCL 100 MG TAB PO SCH (20:48)
[2017-12-02] MEDS: ACETAMINOPHEN 325 MG TAB PO PRN (23:12)
[2017-12-03] VITALS (9 sets, daily range): BP systolic 127–160; BP diastolic 72–82; PULSE 81–99; TEMP 36.7–36.9; O2SAT 90–96
[2017-12-03] MEDS: PIPERACILL/TAZOBAC IV 4.5 GM in DEXTROSE 5% 100ML 100 ML IV SCH ×2 (05:56→15:01)
[2017-12-03] MEDS: ACETAMINOPHEN 325 MG TAB PO PRN ×3 (06:05→20:42)
[2017-12-03] MEDS: LEVALBUTEROL 1.25MG/0.5ML NEB INH SCH ×3 (07:06→16:17)
[2017-12-03] MEDS: IPRATROPIUM BROMIDE NEB SOLN 0.02% 2.5 ML VIAL INH SCH ×3 (07:06→16:17)
[2017-12-03 07:51] LABS: HEMATOCRIT 36.4 % (37-47); MEAN CELL VOLUME 91.7 fL (80-100); MEAN CORPUSCULAR HEMOGLOBIN 30.2 pg (25-34); MEAN PLATELET VOLUME 10.3 fL (7.4-10.4); PLATELET COUNT 263 K/uL (130-400); RED CELL DISTRIBUTION WIDTH CV 14.5 % (11.5-14.5); RED CELL DISTRIBUTION WIDTH SD 48.9 fL (36.4-46.3); WHITE BLOOD COUNT 15.54 K/uL (4.8-10.8)
[2017-12-03] MEDS: PANTOprazole SOD 40 MG TAB PO SCH (07:53)
[2017-12-03] MEDS: MONTELUKAST SOD 10 MG TAB PO SCH (07:53)
[2017-12-03] MEDS: MULTIVITAMIN TAB PO SCH (07:53)
[2017-12-03] MEDS: ALLOPURINOL 100 MG TAB PO SCH (07:54)
[2017-12-03] MEDS: BuPROPion XL 150 MG TABCR PO SCH (07:54)
[2017-12-03] MEDS: ASPIRIN 81 MG ECTAB PO SCH (07:54)
[2017-12-03] MEDS: VENLAFAXINE HCL XR 150 MG CAPXR PO SCH ×2 (07:54→21:59)
[2017-12-03] MEDS: ATORVASTATIN 10 MG TAB PO SCH (07:54)
[2017-12-03] MEDS: ENOXAPARIN 40 MG/0.4 ML SYR SQ SCH (07:56)
[2017-12-03] MEDS: NICOTINE 14 MG/24 HR TDSY TD SCH (07:58)
[2017-12-03] MEDS: METRONIDAZOLE 0.75% TOPICAL GEL 45 GM TUBE TOP SCH ×2 (07:59→22:01)
[2017-12-03] MEDS: LISDEXAMFETAMINE DIMESYLATE 30 MG CAP PO SCH (08:03)
[2017-12-03] MEDS: PATIENT'S OWN CONTROLLED MED PO SCH (08:04)
[2017-12-03 08:24] LABS: CALCIUM 8.4 mg/dl (8.5-10.1); CREATININE 0.85 mg/dl (0.60-1.20); POTASSIUM 3.5 mmol/L (3.5-5.1)
[2017-12-03] MEDS: MAGNESIUM SULFATE 1GM / D5W 1 GM in PREMIXED IN D5W 100 ML IV SCH ×4 (11:30→15:02)
[2017-12-03] MEDS ORDERED: VANCOMYCIN TROUGH ONE (11:30)
[2017-12-03] MEDS: VANCOMYCIN IV 1,000 MG in SODIUM CHLORIDE 0.9% 250ML 250 ML IV SCH (13:02)
--- NOTE | 2017-12-03 14:58 | Pharmacy Progress Note ---
Pharmacy Abx Dose Short Note Date of Service Dec 03, 2017. Assessment & Plan Assessment 67 year old female receiving Vancomycin for treatment of pneumonia. Day # 3 of Vancomycin, Day #5 of zosyn. * Nasal swab negative for MRSA * WBC trending down * Blood cultures NGTD Plan Vancomycin * Trough level of 10 mcg/mL is subtherapeutic. * Change to 1250 mg (16mg/kg) IV every 12 hours * Goal trough level for pneumonia : 15 to 20 mcg/mL * Trough level ordered for 12/05 @ 0730. Zosyn * Continue dose of 4.5 gm IV q 8 hours. Pharmacy will continue to follow and will adjust dose/frequency as necessary. Thank you.
--- NOTE | 2017-12-03 16:59 | Progress Note ---
Medicine Progress Note Date & Time of Visit: Dec 03, 2017 at 14:43. Subjective 67-year-old female presents with severe sepsis secondary to pneumonia she was initially sent to the ICU, treated with broad-spectrum antibiotics and resuscitated. She was transferred to the floor on 12/01. She reports improvement in her cough overnight and denies fevers and chills. She is tolerating p.o. She reports a few aches and pains but has nothing specific that is bothering her. She feels the Tylenol helps her. Her oxygen requirement is down to 2 L today. Objective Last 8 Hrs Date Time Temp Pulse Resp B/P (MAP) Pulse Ox O2 Delivery O2 Flow Rate FiO2 12/03/17 11:18 87 18 96 Nasal Cannula 2.0 12/03/17 08:00 Nasal Cannula 2.0 12/03/17 07:38 36.7 83 18 156/82 (106) 93 12/03/17 07:07 92 18 94 Nasal Cannula 2.0 Physical Exam: GEN: WNWD, in no acute distress, alert and appropriate, no work of breathing HEENT: NC/AT, normal sclerae, dry cracked red tongue. CARDIO: reg rate, S1/2 heard without m/g/r LUNGS: Clear to auscultation bilaterally ABD: soft, nontender, +BS, soft, non-distended EXTREMITY: RP and DP palpable 2+ bilat, no LE swelling or edema, extremities are warm and well-perfused NEURO: CN 2-12 grossly intact, no gross focal deficits. MUSC: moves all extremities equally, generalized weakness noted. SKIN: warm and dry Laboratory Results: 12/03/17 07:16 Red Blood Count 3.97, Mean Corpuscular Volume 91.7, Mean Corpuscular Hemoglobin 30.2, Mean Corpuscular Hemoglobin Concent 33.0, Mean Platelet Volume 10.3 12/03/17 07:16 Test 11/29/17 00:00 11/29/17 15:48 11/29/17 16:03 11/29/17 16:20 Urine Color DK YELLOW Urine Appearance CLOUDY (CLEAR) Urine pH 5.0 (4.5-7.5) Urine Specific [place] 1.011 (1.000-1.030) Urine Protein NEG (NEG) Urine Glucose (UA) NEG (NEG) Urine Ketones NEG (NEG) Urine Occult Blood NEG (NEG) Urine Nitrite POS (NEG) Urine Bilirubin NEG (NEG) Urine Urobilinogen NEG (NEG) Urine Leukocyte Esterase MODERATE (NEG) Urine WBC (Auto) /hpf (0-5) Urine RBC (Auto) /hpf (0-4) Urine Hyaline Casts (Auto) /lpf (0-5) Urine Epithelial Cells (Auto) /lpf (0-5) Urine Bacteria (Auto) (NEG) Urine RBC 0-4 /hpf (0-4) Urine WBC 5-10 /hpf (0-5) Urine Epithelial Cells 0-5 /lpf (0-5) Urine Renal Epithelial Cells /lpf (0-5) Urine Renal Cells 0-5 /lpf (FEW) Urine Amorphous Sediment PRESENT (NONE PRSENT) Urine Bacteria 1+ (NEG) Urine Pathogenic Casts /lpf (0) Troponin I < 0.015 ng/ml (0-0.045) Chemistry Specimen Hemolysis Bedside Lactic Acid Venous 5.22 mmol/L (0.90-1.70) Influenza Type A (RT-PCR) Neg for Influ A (NEG) Influenza Type B (RT-PCR) Neg for Influ B (NEG) Test 11/29/17 22:36 11/30/17 05:39 11/30/17 11:48 12/01/17 05:54 Prothrombin Time 12.0 SECONDS (9.0-12.0) Prothromb Time International Ratio 1.1 (0.9-1.1) Activated Partial Thromboplast Time 32.4 SECONDS (21.0-31.0) Partial Thromboplastin Ratio 1.2 Dohle Bodies 1+ Phosphorus Level 4.5 mg/dl (2.5-4.9) Lactic Acid Level 3.0 mmol/L (0.4-2.0) Immature Granulocyte % (Auto) 2.1 % White Blood Count 38.32 K/uL (4.8-10.8) Red Blood Count 3.82 M/uL (4.2-5.4) Hemoglobin 11.7 g/dL (12.0-16.0) Hematocrit 34.5 % (37-47) Mean Corpuscular Volume 90.3 fL (80-100) Mean Corpuscular Hemoglobin 30.6 pg (25-34) Mean Corpuscular Hemoglobin Concent 33.9 g/dl (32-36) Platelet Count 319 K/uL (130-400) Mean Platelet Volume 10.7 fL (7.4-10.4) Neutrophils (%) (Auto) 88.6 % Lymphocytes (%) (Auto) 4.3 % Monocytes (%) (Auto) 4.5 % Eosinophils (%) (Auto) 0.1 % Basophils (%) (Auto) 0.4 % Neutrophils # (Auto) 33.99 K/uL (1.4-6.5) Lymphocytes # (Auto) 1.63 K/uL (1.2-3.4) Monocytes # (Auto) 1.72 K/uL (0.11-0.59) Eosinophils # (Auto) 0.02 K/uL (0-0.5) Basophils # (Auto) 0.14 K/uL (0-0.2) Immature Granulocyte # (Auto) 0.82 K/uL (0.00-0.02) Toxic Vacuolation 1+ Test 12/02/17 06:46 12/03/17 07:16 12/03/17 07:23 12/03/17 11:19 Blood Smear Review Total Bilirubin 0.5 mg/dl (0.2-1) Direct Bilirubin 0.2 mg/dl (0-0.2) Aspartate Amino Transf (AST/SGOT) 86 U/L (15-37) Alanine Aminotransferase (ALT/SGPT) 71 U/L (12-78) Alkaline Phosphatase 285 U/L (45-117) Total Protein 6.8 gm/dl (6.4-8.2) Albumin 1.9 gm/dl (3.4-5.0) Lipase 225 U/L (73-393) White Blood Count 15.54 K/uL (4.8-10.8) Red Blood Count 3.97 M/uL (4.2-5.4) Hemoglobin 12.0 g/dL (12.0-16.0) Hematocrit 36.4 % (37-47) Mean Corpuscular Volume 91.7 fL (80-100) Mean Corpuscular Hemoglobin 30.2 pg (25-34) Mean Corpuscular Hemoglobin Concent 33.0 g/dl (32-36) Platelet Count 263 K/uL (130-400) Mean Platelet Volume 10.3 fL (7.4-10.4) RDW Standard Deviation 48.9 fL (36.4-46.3) RDW Coefficient of Variation 14.5 % (11.5-14.5) Neutrophils % (Manual) 60.9 % Lymphocytes % (Manual) 13.9 % Monocytes % (Manual) 8.7 % Eosinophils % (Manual) 1.7 % Metamyelocytes % 7.0 % Myelocytes % 6.1 % Promyelocytes % 1.7 % Neutrophils # (Manual) 9.46 K/uL (1.4-6.5) Total Absolute Neutrophils 9.46 K/uL (1.4-6.5) Lymphocytes # (Manual) 2.16 K/uL (1.2-3.4) Total Absolute Lymphocytes 2.16 K/uL (1.2-3.4) Monocytes # (Manual) 1.35 K/uL (0.11-0.59) Eosinophils # (Manual) 0.26 K/uL (0-0.5) Metamyelocytes # 1.09 K/uL (0-0) Myelocytes # 0.95 K/uL (0-0) Promyelocytes # 0.26 K/uL (0-0) Toxic Granulation 3+ Large Platelets 1+ Anion Gap 5.0 mmol/L (3-11) Est Creatinine Clear Calc Drug Dose 64.1 ml/min Estimated GFR () 82.2 Estimated GFR (Non- 70.9 BUN/Creatinine Ratio 19.8 (10-20) Calcium Level 8.4 mg/dl (8.5-10.1) Magnesium Level 1.6 mg/dl (1.8-2.4) Bedside Glucose 90 mg/dl (70-90) Vancomycin Level Trough 10.0 mcg/ml (SEE COMMENT) Date/Time Source Procedure Growth Status 11/29/17 15:50 Blood Blood Culture - Preliminary NO GROWTH TO DATE. Resulted 11/29/17 18:20 Nasal MRSA DNA Surveillance Screen - Final Specimen Negative for MRSA by DNA Probe Complete 12/01/17 09:00 Sputum Expectorated Sputum Gram Stain - Final Complete 12/01/17 09:00 Sputum Culture - Final Shirlene Albicans Complete 11/29/17 00:00 Urine,Catheterized Urine Culture - Final NO GROWTH - LESS THAN 1,000 COLONIES/ML Complete Last 24 Hours Test 3/22/18 07:16 12/03/17 07:23 12/03/17 11:19 White Blood Count 15.54 K/uL Red Blood Count 3.97 M/uL Hemoglobin 12.0 g/dL Hematocrit 36.4 % Mean Corpuscular Volume 91.7 fL Mean Corpuscular Hemoglobin 30.2 pg Mean Corpuscular Hemoglobin Concent 33.0 g/dl Platelet Count 263 K/uL Mean Platelet Volume 10.3 fL RDW Standard Deviation 48.9 fL RDW Coefficient of Variation 14.5 % Neutrophils % (Manual) 60.9 % Lymphocytes % (Manual) 13.9 % Monocytes % (Manual) 8.7 % Eosinophils % (Manual) 1.7 % Metamyelocytes % 7.0 % Myelocytes % 6.1 % Promyelocytes % 1.7 % Neutrophils # (Manual) 9.46 K/uL Total Absolute Neutrophils 9.46 K/uL Lymphocytes # (Manual) 2.16 K/uL Total Absolute Lymphocytes 2.16 K/uL Monocytes # (Manual) 1.35 K/uL Eosinophils # (Manual) 0.26 K/uL Metamyelocytes # 1.09 K/uL Myelocytes # 0.95 K/uL Promyelocytes # 0.26 K/uL Toxic Granulation 3+ Large Platelets 1+ Sodium Level 138 mmol/L Potassium Level 3.5 mmol/L Chloride Level 99 mmol/L Carbon Dioxide Level 34 mmol/L Anion Gap 5.0 mmol/L Blood Urea Nitrogen 17 mg/dl Creatinine 0.85 mg/dl Est Creatinine Clear Calc Drug Dose 64.1 ml/min Estimated GFR () 82.2 Estimated GFR (Non- 70.9 BUN/Creatinine Ratio 19.8 Random Glucose 86 mg/dl Calcium Level 8.4 mg/dl Magnesium Level 1.6 mg/dl Bedside Glucose 90 mg/dl Vancomycin Level Trough 10.0 mcg/ml Assessment & Plan 67-year-old female presents with severe sepsis secondary to pneumonia she was initially sent to the ICU, treated with broad-spectrum antibiotics and resuscitated. She was transferred to the floor on 12/01. She reports improvement in her cough overnight and denies fevers and chills. She is tolerating p.o. She reports a few aches and pains but has nothing specific that is bothering her. She feels the Tylenol helps her. Her oxygen requirement is down to 2 L today. 1. Severe sepsis secondary to community-acquired pneumonia. Continues on Vanco and Zosyn with improvement clinically and reduction in leukocytosis. Hypoxia is improving closer to her baseline which is using 2 L at night only. Will switch to Cefdinir twice daily for continued pneumonia treatment. There is no wheezing on exam, bronchodilators were changed to as needed status. Continue flutter valve appreciate continued pulmonary racks. 2. Thrush-possibly secondary to antibiotics. Nystatin wash started. 3. COPD-stable, no wheezes heard on exam. Continue bronchodilators as needed. 4. Leukocytosis-likely multifactorial secondary to severe sepsis with stress response in addition to infection in the lungs. Improved to 15K today, which corresponds to clinical improvement and patient. CBC in a.m. 5. Active tobacco user-smoking likely contributed to pneumonia above. Continue NicoDerm patch 6. Hypomagnesemia-replace IV and repeat in a.m. DVT prophylaxis-Lovenox Full code Disposition-to [facility] Scarlet Larsen DO [facility] hospitalist Consultants: Dr. Carrera Current Inpatient Medications: Current Inpatient Medications Medications (Trade) Dose Ordered Sig/Debo Route Start Time Stop Time Status Last Admin Dose Admin Acetaminophen (Tylenol Tab) 650 mg Q4H PRN PO 11/29/17 17:30 12/29/17 17:29 12/03/17 12:29 650 MG Nitroglycerin (Nitrostat Tab) 0.4 mg UD PRN SL 11/29/17 17:30 12/29/17 17:29 Ipratropium [place] (Atrovent 0.02% 0.5MG/2.5ML Neb) 0.5 mg Q2R PRN INH 11/29/17 17:30 12/29/17 17:29 11/30/17 02:21 0.5 MG Levalbuterol (Xopenex 1.25MG/ 3ML Neb) 1.25 mg Q2R PRN INH 11/29/17 17:30 12/29/17 17:29 11/30/17 02:21 1.25 MG Ondansetron HCl (Zofran Inj) 4 mg Q6H PRN IV 11/29/17 17:30 12/29/17 17:29 Levalbuterol (Xopenex 1.25MG/ 0.5ML Neb) 1.25 mg QIDR INH 11/29/17 20:00 12/29/17 19:59 12/03/17 11:18 1.25 MG Ipratropium [place] (Atrovent 0.02% 0.5MG/2.5ML Neb) 0.5 mg QIDR INH 11/29/17 20:00 12/29/17 19:59 12/03/17 11:18 0.5 MG Allopurinol (Zyloprim Tab) 100 mg DAILY PO 11/30/17 09:00 12/30/17 08:59 12/03/17 07:54 100 MG Aspirin (Ecotrin Tab) 81 mg DAILY PO 11/30/17 09:00 12/30/17 08:59 12/03/17 07:54 81 MG Atorvastatin Calcium (Lipitor Tab) 10 mg DAILY PO 11/30/17 09:00 12/30/17 08:59 12/03/17 07:54 10 MG Lorazepam (Ativan Tab) 1 mg BID PRN PO 11/29/17 17:30 12/29/17 17:29 12/01/17 21:26 1 MG Metronidazole HCl (Metrogel Topical Gel) 1 appln BID TOP 11/29/17 21:00 12/09/17 20:59 12/03/17 07:59 1 APPLN Montelukast Sodium (Singulair Tab) 10 mg DAILY PO 11/30/17 09:00 12/30/17 08:59 12/03/17 07:53 10 MG Multivitamins (Multivitamin Tab) 1 tab QAM PO 11/30/17 09:00 12/30/17 08:59 12/03/17 07:53 1 TAB Trazodone HCl (Desyrel Tab) 100 mg HS PO 11/29/17 21:00 12/29/17 20:59 12/02/17 20:48 100 MG Venlafaxine HCl (effeXOR EXTENDED REL CAP) 150 mg BID PO 11/29/17 21:00 12/29/17 20:59 12/03/17 07:54 150 MG Bupropion HCl (Wellbutrin-Xl Tab) 150 mg DAILY PO 11/30/17 09:00 12/30/17 08:59 12/03/17 07:54 150 MG Piperacillin Sod/ Tazobactam Sod 4.5 gm/Dextrose 120 ml @ 28.75 mls/ hr Q8H IV 11/29/17 22:00 12/09/17 15:59 12/03/17 05:56 28.75 MLS/HR Miscellaneous Information (Consult) 1 ea UD PRN N/A 11/29/17 18:15 12/29/17 18:14 Miscellaneous (Remove Nicoderm Patch) 1 ea HS N/A 11/30/17 21:00 12/30/17 20:59 12/02/17 20:47 1 EA Ioversol (Optiray 320) 125 ml UD PRN IV 11/30/17 10:30 12/04/17 10:29 Lisdexamfetamine Dimesylate (Vyvanse) 30 mg DAILY PO 12/02/17 09:00 12/14/17 00:00 12/03/17 08:03 30 MG Vancomycin HCl 1000 mg/Sodium Chloride 270 ml @ 125 mls/hr Q16H IV 12/02/17 04:00 12/09/17 03:59 12/03/17 13:02 125 MLS/HR Miscellaneous Information (Consult) 1 ea UD PRN N/A 12/01/17 13:15 12/31/17 13:14 Pantoprazole Sodium (Protonix Tab) 40 mg QAM PO 12/02/17 09:00 01/01/18 08:59 12/03/17 07:53 40 MG Non-Formulary Medication (Patient'S Own Controlled Med) 1 ea DAILY PO 12/02/17 09:00 12/16/17 08:59 12/03/17 08:04 1 EA Polyethylene (Miralax Powder Packet) 17 gm DAILY PRN PO 12/01/17 18:15 12/31/17 18:14 Codeine Phosphate/ Guaifenesin (Robitussin-AC Sugar Free Syrup) 10 ml Q6H PRN PO 12/01/17 18:15 12/31/17 18:14 Nicotine (Nicoderm Cq 14MG Patch) 1 patch QAM TD 12/02/17 14:15 01/01/18 14:14 12/03/17 07:58 1 PATCH Enoxaparin Sodium (Lovenox Inj) 40 mg QAM SQ 12/03/17 09:00 01/02/18 08:59 12/03/17 07:56 40 MG Magnesium Sulfate 1 gm/Prmx 100 ml @ 100 mls/hr Q1H IV 12/03/17 11:30 12/03/17 15:29 12/03/17 13:52 100 MLS/HR
[2017-12-03] MEDS ORDERED: LEVALBUTEROL/IPRATROPIUM NEB INH PRN (17:00)
[2017-12-03] MEDS: CEFDINIR 300 MG CAP PO SCH (17:00)
[2017-12-03] MEDS ORDERED: LEVALBUTEROL 1.25MG/3ML NEB INH PRN (17:15)
[2017-12-03] MEDS ORDERED: IPRATROPIUM BROMIDE NEB SOLN 0.02% 2.5 ML VIAL INH PRN (17:15)
--- NOTE | 2017-12-03 17:58 | Pulmonology Progress Note ---
Pulmonary Progress Note Date of Service Dec 03, 2017. Attending Dr. Hardy Subjective Patient continues to show slow improvement. However, she indicates that she is still having trouble clearing sputum. She denies any fever or chills. She has no chest pain or tightness. She does still have some tenderness in the midepigastric region from cough. She has no acute complaints. Objective GENERAL : No acute distress. In bedside chair EYES: No icterus, gaze conjugate NOSE: No evidence of epistaxis. Nasal cannula in place MOUTH: No lesions or candidiasis NECK: Supple. No stridor LUNGS: Decreased bilaterally with bibasilar rales. Mild wheezes at the bases which clear somewhat with cough HEART: Regular, rate controlled ABDOMEN: Soft, NT, ND, BS Present EXTREMITIES: No LE edema, pedal pulses intact. Yellow socks in place NEURO: A&OX3 Assessment & Plan COMMUNITY-ACQUIRED PNEUMONIA * Continue with antibiotics. Vancomycin added on 12/01/2017. Currently on ceftriaxone doxycycline and vancomycin * Continue Solu-Medrol * Nasal probe negative for MRSA * Sputum culture with light normal cristela * White count dropped to 21.42 from 38.32 with the addition of vancomycin. White count is 15.54 today * Continue to follow clinically * Will add incentive spirometry today as well as flutter valve COPD * Gold level 3 * Continue bronchodilators * Continue to treat underlying pneumonia * Continue supplemental oxygen * Continue with pulmonary toilet * Follow clinically MEDIASTINAL LYMPHADENOPATHY * Most likely due to acute pneumonia * Will require outpatient follow-up with pulmonary * Will schedule appointment prior to discharge DVT PROPHYLAXIS * Heparin 5000 units subcutaneously every 8 hours Thank you very much for including us in the care of this patient. Please refer to Dr. Hardy's addendum for further recommendations. We will continue to follow along with you Data Medications: Current Inpatient Medications Medications (Trade) Dose Ordered Sig/Debo Route Start Time Stop Time Status Last Admin Dose Admin Acetaminophen (Tylenol Tab) 650 mg Q4H PRN PO 11/29/17 17:30 12/29/17 17:29 12/03/17 12:29 650 MG Nitroglycerin (Nitrostat Tab) 0.4 mg UD PRN SL 11/29/17 17:30 12/29/17 17:29 Ondansetron HCl (Zofran Inj) 4 mg Q6H PRN IV 11/29/17 17:30 12/29/17 17:29 Allopurinol (Zyloprim Tab) 100 mg DAILY PO 11/30/17 09:00 12/30/17 08:59 12/03/17 07:54 100 MG Aspirin (Ecotrin Tab) 81 mg DAILY PO 11/30/17 09:00 12/30/17 08:59 12/03/17 07:54 81 MG Atorvastatin Calcium (Lipitor Tab) 10 mg DAILY PO 11/30/17 09:00 12/30/17 08:59 12/03/17 07:54 10 MG Lorazepam (Ativan Tab) 1 mg BID PRN PO 11/29/17 17:30 12/29/17 17:29 12/01/17 21:26 1 MG Metronidazole HCl (Metrogel Topical Gel) 1 appln BID TOP 11/29/17 21:00 12/09/17 20:59 12/03/17 07:59 1 APPLN Montelukast Sodium (Singulair Tab) 10 mg DAILY PO 11/30/17 09:00 12/30/17 08:59 12/03/17 07:53 10 MG Multivitamins (Multivitamin Tab) 1 tab QAM PO 11/30/17 09:00 12/30/17 08:59 12/03/17 07:53 1 TAB Trazodone HCl (Desyrel Tab) 100 mg HS PO 11/29/17 21:00 12/29/17 20:59 12/02/17 20:48 100 MG Venlafaxine HCl (effeXOR EXTENDED REL CAP) 150 mg BID PO 11/29/17 21:00 12/29/17 20:59 12/03/17 07:54 150 MG Bupropion HCl (Wellbutrin-Xl Tab) 150 mg DAILY PO 11/30/17 09:00 12/30/17 08:59 12/03/17 07:54 150 MG Miscellaneous (Remove Nicoderm Patch) 1 ea HS N/A 11/30/17 21:00 12/30/17 20:59 12/02/17 20:47 1 EA Ioversol (Optiray 320) 125 ml UD PRN IV 11/30/17 10:30 12/04/17 10:29 Lisdexamfetamine Dimesylate (Vyvanse) 30 mg DAILY PO 12/02/17 09:00 12/14/17 00:00 12/03/17 08:03 30 MG Pantoprazole Sodium (Protonix Tab) 40 mg QAM PO 12/02/17 09:00 01/01/18 08:59 12/03/17 07:53 40 MG Non-Formulary Medication (Patient'S Own Controlled Med) 1 ea DAILY PO 12/02/17 09:00 12/16/17 08:59 12/03/17 08:04 1 EA Polyethylene (Miralax Powder Packet) 17 gm DAILY PRN PO 12/01/17 18:15 12/31/17 18:14 Codeine Phosphate/ Guaifenesin (Robitussin-AC Sugar Free Syrup) 10 ml Q6H PRN PO 12/01/17 18:15 12/31/17 18:14 Nicotine (Nicoderm Cq 14MG Patch) 1 patch QAM TD 12/02/17 14:15 01/01/18 14:14 12/03/17 07:58 1 PATCH Enoxaparin Sodium (Lovenox Inj) 40 mg QAM SQ 12/03/17 09:00 01/02/18 08:59 12/03/17 07:56 40 MG Nystatin (Mycostatin Susp) 5 ml QID PO 12/03/17 17:00 12/13/17 16:59 Cefdinir (Omnicef Cap) 300 mg Q12H PO 12/03/17 17:00 12/10/17 16:59 Ipratropium [place] (Atrovent 0.02% 0.5MG/2.5ML Neb) 0.5 mg Q6R PRN INH 12/03/17 17:15 01/02/18 17:14 Levalbuterol (Xopenex 1.25MG/ 3ML Neb) 1.25 mg Q6R PRN INH 12/03/17 17:15 01/02/18 17:14 I & O: 24-Hour Column 12/04/17 08:00 Intake Total 1500 ml Output Total 350 ml Balance 1150 ml Vital Signs: Date Time Temp Pulse Resp B/P (MAP) Pulse Ox O2 Delivery O2 Flow Rate FiO2 12/03/17 16:17 81 16 92 Nasal Cannula 2.0 12/03/17 15:30 36.8 84 18 127/72 (90) 93 Nasal Cannula 4.0 12/03/17 11:18 87 18 96 Nasal Cannula 2.0 12/03/17 08:00 Nasal Cannula 2.0 12/03/17 07:38 36.7 83 18 156/82 (106) 93 12/03/17 07:07 92 18 94 Nasal Cannula 2.0 12/03/17 02:58 92 Nasal Cannula 4.0 12/03/17 00:28 36.9 99 20 138/78 (98) 90 Nasal Cannula 5.0 12/03/17 00:00 92 Nasal Cannula 5.0 12/02/17 19:43 97 18 93 Nasal Cannula 2.0 Laboratory Results: Last 24 Hours Test 12/03/17 07:16 12/03/17 07:23 12/03/17 11:19 White Blood Count 15.54 K/uL Red Blood Count 3.97 M/uL Hemoglobin 12.0 g/dL Hematocrit 36.4 % Mean Corpuscular Volume 91.7 fL Mean Corpuscular Hemoglobin 30.2 pg Mean Corpuscular Hemoglobin Concent 33.0 g/dl Platelet Count 263 K/uL Mean Platelet Volume 10.3 fL RDW Standard Deviation 48.9 fL RDW Coefficient of Variation 14.5 % Neutrophils % (Manual) 60.9 % Lymphocytes % (Manual) 13.9 % Monocytes % (Manual) 8.7 % Eosinophils % (Manual) 1.7 % Metamyelocytes % 7.0 % Myelocytes % 6.1 % Promyelocytes % 1.7 % Neutrophils # (Manual) 9.46 K/uL Total Absolute Neutrophils 9.46 K/uL Lymphocytes # (Manual) 2.16 K/uL Total Absolute Lymphocytes 2.16 K/uL Monocytes # (Manual) 1.35 K/uL Eosinophils # (Manual) 0.26 K/uL Metamyelocytes # 1.09 K/uL Myelocytes # 0.95 K/uL Promyelocytes # 0.26 K/uL Toxic Granulation 3+ Large Platelets 1+ Sodium Level 138 mmol/L Potassium Level 3.5 mmol/L Chloride Level 99 mmol/L Carbon Dioxide Level 34 mmol/L Anion Gap 5.0 mmol/L Blood Urea Nitrogen 17 mg/dl Creatinine 0.85 mg/dl Est Creatinine Clear Calc Drug Dose 64.1 ml/min Estimated GFR () 82.2 Estimated GFR (Non- 70.9 BUN/Creatinine Ratio 19.8 Random Glucose 86 mg/dl Calcium Level 8.4 mg/dl Magnesium Level 1.6 mg/dl Bedside Glucose 90 mg/dl Vancomycin Level Trough 10.0 mcg/ml
[2017-12-03] MEDS: NYSTATIN SUSP 500,000 U/5 ML UDC PO SCH ×2 (18:34→22:00)
[2017-12-03] MEDS ORDERED: VANCOMYCIN IV 1,250 MG in SODIUM CHLORIDE 0.9% 250ML 250 ML IV SCH (20:00)
[2017-12-03] MEDS: TRAZODONE HCL 100 MG TAB PO SCH (21:59)
[2017-12-04] VITALS: O2SAT 92
[2017-12-04] MEDS: CEFDINIR 300 MG CAP PO SCH ×2 (05:01→16:58)
[2017-12-04] MEDS: ACETAMINOPHEN 325 MG TAB PO PRN ×2 (05:02→16:58)
[2017-12-04 08:00] VITALS: O2SAT 92
[2017-12-04 08:04] VITALS: BP 158/85; PULSE 80; TEMP 36.6; O2SAT 90
[2017-12-04 08:14] LABS: HEMATOCRIT 36.4 % (37-47); HEMOGLOBIN 12.1 g/dL (12.0-16.0); MEAN CELL VOLUME 91.9 fL (80-100); MEAN CORPUSCULAR HEMOGLOBIN 30.6 pg (25-34); MEAN CORPUSCULAR HGB CONC 33.2 g/dl (32-36); MEAN PLATELET VOLUME 10.4 fL (7.4-10.4); PLATELET COUNT 265 K/uL (130-400); RED CELL DISTRIBUTION WIDTH CV 14.4 % (11.5-14.5); RED CELL DISTRIBUTION WIDTH SD 48.2 fL (36.4-46.3); WHITE BLOOD COUNT 16.87 K/uL (4.8-10.8)
[2017-12-04] MEDS: NYSTATIN SUSP 500,000 U/5 ML UDC PO SCH ×4 (08:41→20:17)
[2017-12-04] MEDS: ENOXAPARIN 40 MG/0.4 ML SYR SQ SCH (08:41)
[2017-12-04] MEDS: VENLAFAXINE HCL XR 150 MG CAPXR PO SCH ×2 (08:41→20:17)
[2017-12-04] MEDS: MONTELUKAST SOD 10 MG TAB PO SCH (08:42)
[2017-12-04] MEDS: ALLOPURINOL 100 MG TAB PO SCH (08:42)
[2017-12-04] MEDS: ASPIRIN 81 MG ECTAB PO SCH (08:42)
[2017-12-04] MEDS: PANTOprazole SOD 40 MG TAB PO SCH (08:42)
[2017-12-04] MEDS: MULTIVITAMIN TAB PO SCH (08:42)
[2017-12-04] MEDS: BuPROPion XL 150 MG TABCR PO SCH (08:42)
[2017-12-04] MEDS: ATORVASTATIN 10 MG TAB PO SCH (08:42)
[2017-12-04] MEDS: NICOTINE 14 MG/24 HR TDSY TD SCH (08:43)
[2017-12-04] MEDS: METRONIDAZOLE 0.75% TOPICAL GEL 45 GM TUBE TOP SCH ×2 (08:43→20:17)
[2017-12-04] MEDS: PATIENT'S OWN CONTROLLED MED PO SCH (08:47)
[2017-12-04] MEDS: LISDEXAMFETAMINE DIMESYLATE 30 MG CAP PO SCH (08:47)
[2017-12-04 08:53] LABS: CALCIUM 8.4 mg/dl (8.5-10.1); CREATININE 0.69 mg/dl (0.60-1.20); POTASSIUM 3.6 mmol/L (3.5-5.1)
[2017-12-04 15:29] VITALS: BP 159/76; PULSE 91; TEMP 36.9; O2SAT 91
--- NOTE | 2017-12-04 16:07 | Pulmonology Progress Note ---
Pulmonary Progress Note Date of Service Dec 04, 2017. Attending Dr. Hardy Subjective Mrs. Cronin indicates that she is feeling better today but continues to have shortness of breath. She has been ambulating around the room but is afraid to ambulate in the hallways. Continues with murrell sputum. Is using the incentive spirometer and flutter valve intermittently. Denies fever chills. No nausea or vomiting. Slow improvement. Objective GENERAL : No acute distress. In bedside chair with visitors present in the room EYES: No icterus, gaze conjugate NOSE: No evidence of epistaxis. Nasal cannula in place MOUTH: No lesions or candidiasis NECK: Supple. No stridor LUNGS: Decreased bilaterally with bibasilar rales. Wheezes have been replaced in the bases by fine rales and there are now scattered wheezes in the upper lung browning HEART: Regular, rate controlled ABDOMEN: Soft, NT, ND, BS Present EXTREMITIES: No LE edema, pedal pulses intact. NEURO: A&OX3 Assessment & Plan COMMUNITY-ACQUIRED PNEUMONIA * Continue with antibiotics. Vancomycin added on 12/01/2017. Zosyn and vancomycin discontinued yesterday * Patient started on Cefdinir 300 mg p.o. every 12 hours * Continue Solu-Medrol but begin to taper * Nasal probe negative for MRSA * Sputum culture with light normal cristela * White count now 16.87 * Continue to follow clinically * Continue incentive spirometry today as well as flutter valve COPD * Gold level 3 * Continue bronchodilators * Continue to treat underlying pneumonia * Continue supplemental oxygen * Continue with pulmonary toilet * Follow clinically * Antibiotics and steroids for pneumonia as above MEDIASTINAL LYMPHADENOPATHY * Most likely due to acute pneumonia * Will require outpatient follow-up with pulmonary * Will schedule appointment prior to discharge DVT PROPHYLAXIS * Heparin 5000 units subcutaneously every 8 hours Thank you very much for including us in the care of this patient. Please refer to Dr. Hardy's addendum for further recommendations. We will sign off at this time. Please feel free to reconsult as needed Data Medications: Current Inpatient Medications Medications (Trade) Dose Ordered Sig/Debo Route Start Time Stop Time Status Last Admin Dose Admin Acetaminophen (Tylenol Tab) 650 mg Q4H PRN PO 11/29/17 17:30 12/29/17 17:29 12/04/17 05:02 650 MG Nitroglycerin (Nitrostat Tab) 0.4 mg UD PRN SL 11/29/17 17:30 12/29/17 17:29 Ondansetron HCl (Zofran Inj) 4 mg Q6H PRN IV 11/29/17 17:30 12/29/17 17:29 Allopurinol (Zyloprim Tab) 100 mg DAILY PO 11/30/17 09:00 12/30/17 08:59 12/04/17 08:42 100 MG Aspirin (Ecotrin Tab) 81 mg DAILY PO 11/30/17 09:00 12/30/17 08:59 12/04/17 08:42 81 MG Atorvastatin Calcium (Lipitor Tab) 10 mg DAILY PO 11/30/17 09:00 12/30/17 08:59 12/04/17 08:42 10 MG Lorazepam (Ativan Tab) 1 mg BID PRN PO 11/29/17 17:30 12/29/17 17:29 12/01/17 21:26 1 MG Metronidazole HCl (Metrogel Topical Gel) 1 appln BID TOP 11/29/17 21:00 12/09/17 20:59 12/04/17 08:43 1 APPLN Montelukast Sodium (Singulair Tab) 10 mg DAILY PO 11/30/17 09:00 12/30/17 08:59 12/04/17 08:42 10 MG Multivitamins (Multivitamin Tab) 1 tab QAM PO 11/30/17 09:00 12/30/17 08:59 12/04/17 08:42 1 TAB Trazodone HCl (Desyrel Tab) 100 mg HS PO 11/29/17 21:00 12/29/17 20:59 12/03/17 21:59 100 MG Venlafaxine HCl (effeXOR EXTENDED REL CAP) 150 mg BID PO 11/29/17 21:00 12/29/17 20:59 12/04/17 08:41 150 MG Bupropion HCl (Wellbutrin-Xl Tab) 150 mg DAILY PO 11/30/17 09:00 12/30/17 08:59 12/04/17 08:42 150 MG Miscellaneous (Remove Nicoderm Patch) 1 ea HS N/A 11/30/17 21:00 12/30/17 20:59 12/03/17 22:02 1 EA Lisdexamfetamine Dimesylate (Vyvanse) 30 mg DAILY PO 12/02/17 09:00 12/14/17 00:00 12/04/17 08:47 30 MG Pantoprazole Sodium (Protonix Tab) 40 mg QAM PO 12/02/17 09:00 01/01/18 08:59 12/04/17 08:42 40 MG Non-Formulary Medication (Patient'S Own Controlled Med) 1 ea DAILY PO 12/02/17 09:00 12/16/17 08:59 12/04/17 08:47 1 EA Polyethylene (Miralax Powder Packet) 17 gm DAILY PRN PO 12/01/17 18:15 12/31/17 18:14 Codeine Phosphate/ Guaifenesin (Robitussin-AC Sugar Free Syrup) 10 ml Q6H PRN PO 12/01/17 18:15 12/31/17 18:14 Nicotine (Nicoderm Cq 14MG Patch) 1 patch QAM TD 12/02/17 14:15 01/01/18 14:14 12/04/17 08:43 1 PATCH Enoxaparin Sodium (Lovenox Inj) 40 mg QAM SQ 12/03/17 09:00 01/02/18 08:59 12/04/17 08:41 40 MG Nystatin (Mycostatin Susp) 5 ml QID PO 12/03/17 17:00 12/13/17 16:59 12/04/17 13:18 5 ML Cefdinir (Omnicef Cap) 300 mg Q12H PO 12/03/17 17:00 12/10/17 16:59 12/04/17 05:01 300 MG Ipratropium [place] (Atrovent 0.02% 0.5MG/2.5ML Neb) 0.5 mg Q6R PRN INH 12/03/17 17:15 01/02/18 17:14 Levalbuterol (Xopenex 1.25MG/ 3ML Neb) 1.25 mg Q6R PRN INH 12/03/17 17:15 01/02/18 17:14 I & O: 24-Hour Column 12/05/17 08:00 Intake Total 275 ml Output Total 600 ml Balance -325 ml Vital Signs: Date Time Temp Pulse Resp B/P (MAP) Pulse Ox O2 Delivery O2 Flow Rate FiO2 12/04/17 15:29 36.9 91 18 159/76 (103) 91 Nasal Cannula 2.0 12/04/17 08:04 36.6 80 18 158/85 (109) 90 Nasal Cannula 2.0 12/04/17 08:00 92 Nasal Cannula 2.0 12/04/17 00:00 92 Nasal Cannula 2.0 12/03/17 23:51 36.9 88 18 160/78 (105) 90 2.0 12/03/17 20:00 Nasal Cannula 2.0 12/03/17 16:17 81 16 92 Nasal Cannula 2.0 Laboratory Results: Last 24 Hours Test 12/04/17 07:27 12/04/17 07:44 12/04/17 11:51 White Blood Count 16.87 K/uL Red Blood Count 3.96 M/uL Hemoglobin 12.1 g/dL Hematocrit 36.4 % Mean Corpuscular Volume 91.9 fL Mean Corpuscular Hemoglobin 30.6 pg Mean Corpuscular Hemoglobin Concent 33.2 g/dl Platelet Count 265 K/uL Mean Platelet Volume 10.4 fL RDW Standard Deviation 48.2 fL RDW Coefficient of Variation 14.4 % Neutrophils % (Manual) 74.5 % Lymphocytes % (Manual) 8.8 % Monocytes % (Manual) 2.6 % Metamyelocytes % 8.8 % Myelocytes % 5.3 % Neutrophils # (Manual) 12.57 K/uL Total Absolute Neutrophils 12.57 K/uL Lymphocytes # (Manual) 1.48 K/uL Total Absolute Lymphocytes 1.48 K/uL Monocytes # (Manual) 0.44 K/uL Metamyelocytes # 1.48 K/uL Myelocytes # 0.89 K/uL Toxic Granulation 3+ Sodium Level 139 mmol/L Potassium Level 3.6 mmol/L Chloride Level 98 mmol/L Carbon Dioxide Level 36 mmol/L Anion Gap 4.0 mmol/L Blood Urea Nitrogen 13 mg/dl Creatinine 0.69 mg/dl Est Creatinine Clear Calc Drug Dose 79.0 ml/min Estimated GFR () 104.4 Estimated GFR (Non- 90.1 BUN/Creatinine Ratio 18.1 Random Glucose 70 mg/dl Calcium Level 8.4 mg/dl Magnesium Level 2.2 mg/dl Bedside Glucose 76 mg/dl 92 mg/dl
--- NOTE | 2017-12-04 18:08 | Progress Note ---
Medicine Progress Note Date & Time of Visit: Dec 04, 2017 at 18:05. Subjective 67-year-old female presents with severe sepsis secondary to pneumonia she was initially sent to the ICU, treated with broad-spectrum antibiotics and resuscitated. She was transferred to the floor on 12/01. She reports improvement in her cough and complete resolution of abdominal discomfort. She is tolerating p.o. She reports a few aches and pains but has nothing specific that is bothering her. She had a rough morning but is better this afternoon. She feels the Tylenol helps her. Objective Last 8 Hrs Date Time Temp Pulse Resp B/P (MAP) Pulse Ox O2 Delivery O2 Flow Rate FiO2 12/04/17 15:29 36.9 91 18 159/76 (103) 91 Nasal Cannula 2.0 Physical Exam: GEN: WNWD, in no acute distress, alert and appropriate, no work of breathing HEENT: NC/AT, normal sclerae, dry cracked red tongue. CARDIO: reg rate, S1/2 heard without m/g/r LUNGS: Scattered rales on exam. Otherwise no wheezes or rhonchi heard ABD: soft, nontender, +BS, soft, non-distended EXTREMITY: RP and DP palpable 2+ bilat, no LE swelling or edema, extremities are warm and well-perfused NEURO: CN 2-12 grossly intact, no gross focal deficits. MUSC: moves all extremities equally, generalized weakness noted. SKIN: warm and dry Laboratory Results: 12/04/17 07:27 Red Blood Count 3.96, Mean Corpuscular Volume 91.9, Mean Corpuscular Hemoglobin 30.6, Mean Corpuscular Hemoglobin Concent 33.2, Mean Platelet Volume 10.4 12/04/17 07:27 Test 11/29/17 00:00 11/29/17 15:48 11/29/17 16:03 11/29/17 16:20 Urine Color DK YELLOW Urine Appearance CLOUDY (CLEAR) Urine pH 5.0 (4.5-7.5) Urine Specific [place] 1.011 (1.000-1.030) Urine Protein NEG (NEG) Urine Glucose (UA) NEG (NEG) Urine Ketones NEG (NEG) Urine Occult Blood NEG (NEG) Urine Nitrite POS (NEG) Urine Bilirubin NEG (NEG) Urine Urobilinogen NEG (NEG) Urine Leukocyte Esterase MODERATE (NEG) Urine WBC (Auto) /hpf (0-5) Urine RBC (Auto) /hpf (0-4) Urine Hyaline Casts (Auto) /lpf (0-5) Urine Epithelial Cells (Auto) /lpf (0-5) Urine Bacteria (Auto) (NEG) Urine RBC 0-4 /hpf (0-4) Urine WBC 5-10 /hpf (0-5) Urine Epithelial Cells 0-5 /lpf (0-5) Urine Renal Epithelial Cells /lpf (0-5) Urine Renal Cells 0-5 /lpf (FEW) Urine Amorphous Sediment PRESENT (NONE PRSENT) Urine Bacteria 1+ (NEG) Urine Pathogenic Casts /lpf (0) Troponin I < 0.015 ng/ml (0-0.045) Chemistry Specimen Hemolysis Bedside Lactic Acid Venous 5.22 mmol/L (0.90-1.70) Influenza Type A (RT-PCR) Neg for Influ A (NEG) Influenza Type B (RT-PCR) Neg for Influ B (NEG) Test 11/29/17 22:36 11/30/17 05:39 11/30/17 11:48 12/01/17 05:54 Prothrombin Time 12.0 SECONDS (9.0-12.0) Prothromb Time International Ratio 1.1 (0.9-1.1) Activated Partial Thromboplast Time 32.4 SECONDS (21.0-31.0) Partial Thromboplastin Ratio 1.2 Dohle Bodies 1+ Phosphorus Level 4.5 mg/dl (2.5-4.9) Lactic Acid Level 3.0 mmol/L (0.4-2.0) Immature Granulocyte % (Auto) 2.1 % White Blood Count 38.32 K/uL (4.8-10.8) Red Blood Count 3.82 M/uL (4.2-5.4) Hemoglobin 11.7 g/dL (12.0-16.0) Hematocrit 34.5 % (37-47) Mean Corpuscular Volume 90.3 fL (80-100) Mean Corpuscular Hemoglobin 30.6 pg (25-34) Mean Corpuscular Hemoglobin Concent 33.9 g/dl (32-36) Platelet Count 319 K/uL (130-400) Mean Platelet Volume 10.7 fL (7.4-10.4) Neutrophils (%) (Auto) 88.6 % Lymphocytes (%) (Auto) 4.3 % Monocytes (%) (Auto) 4.5 % Eosinophils (%) (Auto) 0.1 % Basophils (%) (Auto) 0.4 % Neutrophils # (Auto) 33.99 K/uL (1.4-6.5) Lymphocytes # (Auto) 1.63 K/uL (1.2-3.4) Monocytes # (Auto) 1.72 K/uL (0.11-0.59) Eosinophils # (Auto) 0.02 K/uL (0-0.5) Basophils # (Auto) 0.14 K/uL (0-0.2) Immature Granulocyte # (Auto) 0.82 K/uL (0.00-0.02) Toxic Vacuolation 1+ Test 12/02/17 06:46 12/03/17 07:16 12/03/17 11:19 12/04/17 07:27 Blood Smear Review Total Bilirubin 0.5 mg/dl (0.2-1) Direct Bilirubin 0.2 mg/dl (0-0.2) Aspartate Amino Transf (AST/SGOT) 86 U/L (15-37) Alanine Aminotransferase (ALT/SGPT) 71 U/L (12-78) Alkaline Phosphatase 285 U/L (45-117) Total Protein 6.8 gm/dl (6.4-8.2) Albumin 1.9 gm/dl (3.4-5.0) Lipase 225 U/L (73-393) Eosinophils % (Manual) 1.7 % Promyelocytes % 1.7 % Eosinophils # (Manual) 0.26 K/uL (0-0.5) Promyelocytes # 0.26 K/uL (0-0) Large Platelets 1+ Vancomycin Level Trough 10.0 mcg/ml (SEE COMMENT) White Blood Count 16.87 K/uL (4.8-10.8) Red Blood Count 3.96 M/uL (4.2-5.4) Hemoglobin 12.1 g/dL (12.0-16.0) Hematocrit 36.4 % (37-47) Mean Corpuscular Volume 91.9 fL (80-100) Mean Corpuscular Hemoglobin 30.6 pg (25-34) Mean Corpuscular Hemoglobin Concent 33.2 g/dl (32-36) Platelet Count 265 K/uL (130-400) Mean Platelet Volume 10.4 fL (7.4-10.4) RDW Standard Deviation 48.2 fL (36.4-46.3) RDW Coefficient of Variation 14.4 % (11.5-14.5) Neutrophils % (Manual) 74.5 % Lymphocytes % (Manual) 8.8 % Monocytes % (Manual) 2.6 % Metamyelocytes % 8.8 % Myelocytes % 5.3 % Neutrophils # (Manual) 12.57 K/uL (1.4-6.5) Total Absolute Neutrophils 12.57 K/uL (1.4-6.5) Lymphocytes # (Manual) 1.48 K/uL (1.2-3.4) Total Absolute Lymphocytes 1.48 K/uL (1.2-3.4) Monocytes # (Manual) 0.44 K/uL (0.11-0.59) Metamyelocytes # 1.48 K/uL (0-0) Myelocytes # 0.89 K/uL (0-0) Toxic Granulation 3+ Anion Gap 4.0 mmol/L (3-11) Est Creatinine Clear Calc Drug Dose 79.0 ml/min Estimated GFR () 104.4 Estimated GFR (Non- 90.1 BUN/Creatinine Ratio 18.1 (10-20) Calcium Level 8.4 mg/dl (8.5-10.1) Magnesium Level 2.2 mg/dl (1.8-2.4) Test 12/04/17 11:51 Bedside Glucose 92 mg/dl (70-90) Date/Time Source Procedure Growth Status 11/29/17 15:50 Blood Blood Culture - Preliminary NO GROWTH TO DATE. Resulted 11/29/17 18:20 Nasal MRSA DNA Surveillance Screen - Final Specimen Negative for MRSA by DNA Probe Complete 12/01/17 09:00 Sputum Expectorated Sputum Gram Stain - Final Complete 12/01/17 09:00 Sputum Culture - Final Shirlene Albicans Complete 11/29/17 00:00 Urine,Catheterized Urine Culture - Final NO GROWTH - LESS THAN 1,000 COLONIES/ML Complete Last 24 Hours Test 12/04/17 07:27 12/04/17 07:44 12/04/17 11:51 White Blood Count 16.87 K/uL Red Blood Count 3.96 M/uL Hemoglobin 12.1 g/dL Hematocrit 36.4 % Mean Corpuscular Volume 91.9 fL Mean Corpuscular Hemoglobin 30.6 pg Mean Corpuscular Hemoglobin Concent 33.2 g/dl Platelet Count 265 K/uL Mean Platelet Volume 10.4 fL RDW Standard Deviation 48.2 fL RDW Coefficient of Variation 14.4 % Neutrophils % (Manual) 74.5 % Lymphocytes % (Manual) 8.8 % Monocytes % (Manual) 2.6 % Metamyelocytes % 8.8 % Myelocytes % 5.3 % Neutrophils # (Manual) 12.57 K/uL Total Absolute Neutrophils 12.57 K/uL Lymphocytes # (Manual) 1.48 K/uL Total Absolute Lymphocytes 1.48 K/uL Monocytes # (Manual) 0.44 K/uL Metamyelocytes # 1.48 K/uL Myelocytes # 0.89 K/uL Toxic Granulation 3+ Sodium Level 139 mmol/L Potassium Level 3.6 mmol/L Chloride Level 98 mmol/L Carbon Dioxide Level 36 mmol/L Anion Gap 4.0 mmol/L Blood Urea Nitrogen 13 mg/dl Creatinine 0.69 mg/dl Est Creatinine Clear Calc Drug Dose 79.0 ml/min Estimated GFR () 104.4 Estimated GFR (Non- 90.1 BUN/Creatinine Ratio 18.1 Random Glucose 70 mg/dl Calcium Level 8.4 mg/dl Magnesium Level 2.2 mg/dl Bedside Glucose 76 mg/dl 92 mg/dl Assessment & Plan 67-year-old female presents with severe sepsis secondary to pneumonia she was initially sent to the ICU, treated with broad-spectrum antibiotics and resuscitated. She was transferred to the floor on 12/01. She reports improvement in her cough and complete resolution of abdominal discomfort. She is tolerating p.o. She reports a few aches and pains but has nothing specific that is bothering her. She had a rough morning but is better this afternoon. She feels the Tylenol helps her. 1. Community-acquired pneumonia. Hypoxia is improving closer to her baseline which is using 2 L at night only. Cefdinir twice daily started 12/03 for continued pneumonia treatment. There is no wheezing on exam, bronchodilators were changed to as needed status. Continue flutter valve appreciate continued pulmonary racks. 2. Thrush-possibly secondary to antibiotics. Nystatin wash started. Patient reports improvement 3. COPD-stable, no wheezes heard on exam. Continue bronchodilators as needed. 4. Leukocytosis-likely multifactorial secondary to severe sepsis with stress response in addition to infection in the lungs. Improved, repeat CBC in a.m. 5. Active tobacco user-smoking likely contributed to pneumonia above. Continue NicoDerm patch. Patient reports intention to quit. 6. Hypomagnesemia-resolved DVT prophylaxis-Lovenox Full code [facility]position-to [facility]: Dr. Carrera Current Inpatient Medications: Current Inpatient Medications Medications (Trade) Dose Ordered Sig/Debo Route Start Time Stop Time Status Last Admin Dose Admin Acetaminophen (Tylenol Tab) 650 mg Q4H PRN PO 11/29/17 17:30 12/29/17 17:29 12/04/17 16:58 650 MG Nitroglycerin (Nitrostat Tab) 0.4 mg UD PRN SL 11/29/17 17:30 12/29/17 17:29 Ondansetron HCl (Zofran Inj) 4 mg Q6H PRN IV 11/29/17 17:30 12/29/17 17:29 Allopurinol (Zyloprim Tab) 100 mg DAILY PO 11/30/17 09:00 12/30/17 08:59 12/04/17 08:42 100 MG Aspirin (Ecotrin Tab) 81 mg DAILY PO 11/30/17 09:00 12/30/17 08:59 12/04/17 08:42 81 MG Atorvastatin Calcium (Lipitor Tab) 10 mg DAILY PO 11/30/17 09:00 12/30/17 08:59 12/04/17 08:42 10 MG Lorazepam (Ativan Tab) 1 mg BID PRN PO 11/29/17 17:30 12/29/17 17:29 12/01/17 21:26 1 MG Metronidazole HCl (Metrogel Topical Gel) 1 appln BID TOP 11/29/17 21:00 12/09/17 20:59 12/04/17 08:43 1 APPLN Montelukast Sodium (Singulair Tab) 10 mg DAILY PO 11/30/17 09:00 12/30/17 08:59 12/04/17 08:42 10 MG Multivitamins (Multivitamin Tab) 1 tab QAM PO 11/30/17 09:00 12/30/17 08:59 12/04/17 08:42 1 TAB Trazodone HCl (Desyrel Tab) 100 mg HS PO 11/29/17 21:00 12/29/17 20:59 12/03/17 21:59 100 MG Venlafaxine HCl (effeXOR EXTENDED REL CAP) 150 mg BID PO 11/29/17 21:00 12/29/17 20:59 12/04/17 08:41 150 MG Bupropion HCl (Wellbutrin-Xl Tab) 150 mg DAILY PO 11/30/17 09:00 12/30/17 08:59 12/04/17 08:42 150 MG Miscellaneous (Remove Nicoderm Patch) 1 ea HS N/A 11/30/17 21:00 12/30/17 20:59 12/03/17 22:02 1 EA Lisdexamfetamine Dimesylate (Vyvanse) 30 mg DAILY PO 12/02/17 09:00 12/14/17 00:00 12/04/17 08:47 30 MG Pantoprazole Sodium (Protonix Tab) 40 mg QAM PO 12/02/17 09:00 01/01/18 08:59 12/04/17 08:42 40 MG Non-Formulary Medication (Patient'S Own Controlled Med) 1 ea DAILY PO 12/02/17 09:00 12/16/17 08:59 12/04/17 08:47 1 EA Polyethylene (Miralax Powder Packet) 17 gm DAILY PRN PO 12/01/17 18:15 12/31/17 18:14 Codeine Phosphate/ Guaifenesin (Robitussin-AC Sugar Free Syrup) 10 ml Q6H PRN PO 12/01/17 18:15 12/31/17 18:14 Nicotine (Nicoderm Cq 14MG Patch) 1 patch QAM TD 12/02/17 14:15 01/01/18 14:14 12/04/17 08:43 1 PATCH Enoxaparin Sodium (Lovenox Inj) 40 mg QAM SQ 12/03/17 09:00 01/02/18 08:59 12/04/17 08:41 40 MG Nystatin (Mycostatin Susp) 5 ml QID PO 12/03/17 17:00 4/1/18 16:59 12/04/17 16:58 5 ML Cefdinir (Omnicef Cap) 300 mg Q12H PO 12/03/17 17:00 12/10/17 16:59 12/04/17 16:58 300 MG Ipratropium [place] (Atrovent 0.02% 0.5MG/2.5ML Neb) 0.5 mg Q6R PRN INH 12/03/17 17:15 01/02/18 17:14 Levalbuterol (Xopenex 1.25MG/ 3ML Neb) 1.25 mg Q6R PRN INH 12/03/17 17:15 01/02/18 17:14
[2017-12-04] MEDS: TRAZODONE HCL 100 MG TAB PO SCH (20:17)
[2017-12-04 23:04] VITALS: BP 179/93; PULSE 90; TEMP 36.9; O2SAT 90
[2017-12-05] MEDS: HydrALAZINE HCL 20 MG/ML VIAL IV. PRN ×3 (01:58→16:20)
[2017-12-05] MEDS: ACETAMINOPHEN 325 MG TAB PO PRN ×3 (03:16→22:25)
[2017-12-05] MEDS: LORAZEPAM 1 MG TAB PO PRN ×2 (03:16→22:24)
[2017-12-05] MEDS: CEFDINIR 300 MG CAP PO SCH ×2 (05:00→16:19)
[2017-12-05 06:33] LABS: HEMATOCRIT 37.5 % (37-47); HEMOGLOBIN 12.3 g/dL (12.0-16.0); MEAN CELL VOLUME 91.9 fL (80-100); MEAN CORPUSCULAR HEMOGLOBIN 30.1 pg (25-34); MEAN CORPUSCULAR HGB CONC 32.8 g/dl (32-36); MEAN PLATELET VOLUME 10.5 fL (7.4-10.4); PLATELET COUNT 244 K/uL (130-400); RED CELL DISTRIBUTION WIDTH CV 14.2 % (11.5-14.5); RED CELL DISTRIBUTION WIDTH SD 47.6 fL (36.4-46.3)
[2017-12-05 06:56] VITALS: BP 167/87; PULSE 85; TEMP 36.7; O2SAT 92
[2017-12-05 07:10] LABS: CALCIUM 8.6 mg/dl (8.5-10.1); CREATININE 0.59 mg/dl (0.60-1.20); POTASSIUM 3.7 mmol/L (3.5-5.1)
[2017-12-05] MEDS ORDERED: VANCOMYCIN TROUGH ONE (07:30)
[2017-12-05] MEDS: BuPROPion XL 150 MG TABCR PO SCH (08:25)
[2017-12-05] MEDS: VENLAFAXINE HCL XR 150 MG CAPXR PO SCH ×2 (08:25→20:32)
[2017-12-05] MEDS: ASPIRIN 81 MG ECTAB PO SCH (08:25)
[2017-12-05] MEDS: ATORVASTATIN 10 MG TAB PO SCH (08:25)
[2017-12-05] MEDS: ALLOPURINOL 100 MG TAB PO SCH (08:25)
[2017-12-05] MEDS: PANTOprazole SOD 40 MG TAB PO SCH (08:25)
[2017-12-05] MEDS: MULTIVITAMIN TAB PO SCH (08:25)
[2017-12-05] MEDS: MONTELUKAST SOD 10 MG TAB PO SCH (08:25)
[2017-12-05] MEDS: NYSTATIN SUSP 500,000 U/5 ML UDC PO SCH ×4 (08:26→20:32)
[2017-12-05] MEDS: ENOXAPARIN 40 MG/0.4 ML SYR SQ SCH (08:27)
[2017-12-05] MEDS: NICOTINE 14 MG/24 HR TDSY TD SCH (08:28)
[2017-12-05] MEDS: METRONIDAZOLE 0.75% TOPICAL GEL 45 GM TUBE TOP SCH ×2 (08:28→20:32)
[2017-12-05] MEDS: LISDEXAMFETAMINE DIMESYLATE 30 MG CAP PO SCH (08:36)
[2017-12-05] MEDS: PATIENT'S OWN CONTROLLED MED PO SCH (08:36)
[2017-12-05 12:39] VITALS: BP 166/91
[2017-12-05 13:56] VITALS: BP 136/76
[2017-12-05 16:08] VITALS: BP 164/75; PULSE 85; TEMP 36.5; O2SAT 90
--- NOTE | 2017-12-05 16:55 | Progress Note ---
Internal Med Progress Note Date of Service: Dec 05, 2017. Provider Documentation: SUBJECTIVE: resting comfortably says sob and cough is better still feel weak on and off ambulating better eating better denies diarrhea no pain OBJECTIVE: Vital Signs-as noted below Exam: General-alert and oriented. ENT-Normal hearing Neck-no neck masses Lungs-cta b/l no wheezing no crackles present Heart-S1 and S2 heard regular rate and rhythm no murmurs Abdomen-Soft bowel sounds present non tender no distension Extremities-no edema no erythema Neuro-alert and awake moves extremities Lab data as noted below. ASSESSMENT & PLAN: This is a 67-year-old female who presents with severe sepsis/septic shock possibly from pneumonia. 1. Severe sepsis/septic shock, mostly from community acquired pneumonia - was on Zosyn and doxycycline resolved much improved currently on po omnicef appreciate pulmonary inputs 2. acute kidney failure and chronic kidney disease stage III, baseline creatinine about 1.1, creatinine on presentation 1.5, received IV fluids. resolved. 3. History of gastroesophageal reflux disease, proton pump inhibitor. 4. History of chronic obstructive pulmonary disease, does not seem to be in exacerbation at this time. We hold home nebs, Spiriva and Advair. on nebs prn 5. History of gout on allopurinol. 6. History of hyperlipidemia, on statin. 7. Deep vein thrombosis prophylaxis, SCDs and heparin subQ DISPOSITION to be determined pt/ot Vital Signs: Date Time Temp Pulse Resp B/P (MAP) Pulse Ox O2 Delivery O2 Flow Rate FiO2 12/05/17 16:08 36.5 85 19 164/75 (104) 90 Nasal Cannula 2.0 12/05/17 16:00 Nasal Cannula 2.0 12/05/17 13:56 136/76 (96) 12/05/17 12:39 166/91 (116) 12/05/17 08:00 Nasal Cannula 2.0 12/05/17 06:56 36.7 85 20 167/87 (113) 92 2.0 12/05/17 00:02 Nasal Cannula 2.0 12/04/17 23:04 36.9 90 20 179/93 (121) 90 2.0 Lab Results: Results Past 24 Hours Test 12/05/17 06:17 12/05/17 07:29 Range/Units White Blood Count 15.00 4.8-10.8 K/uL Red Blood Count 4.08 4.2-5.4 M/uL Hemoglobin 12.3 12.0-16.0 g/dL Hematocrit 37.5 37-47 % Mean Corpuscular Volume 91.9 80-100 fL Mean Corpuscular Hemoglobin 30.1 25-34 pg Mean Corpuscular Hemoglobin Concent 32.8 32-36 g/dl RDW Standard Deviation 47.6 36.4-46.3 fL RDW Coefficient of Variation 14.2 11.5-14.5 % Platelet Count 244 130-400 K/uL Mean Platelet Volume 10.5 7.4-10.4 fL Sodium Level 138 136-145 mmol/L Potassium Level 3.7 3.5-5.1 mmol/L Chloride Level 99 98-107 mmol/L Carbon Dioxide Level 34 21-32 mmol/L Anion Gap 5.0 3-11 mmol/L Blood Urea Nitrogen 10 7-18 mg/dl Creatinine 0.59 0.60-1.20 mg/dl Est Creatinine Clear Calc Drug Dose 92.4 ml/min Estimated GFR () 109.9 Estimated GFR (Non- 94.8 BUN/Creatinine Ratio 16.9 10-20 Random Glucose 72 70-99 mg/dl Calcium Level 8.6 8.5-10.1 mg/dl Bedside Glucose 73 70-90 mg/dl
[2017-12-05] MEDS: FLUTICASONE/SALMETEROL 250/50 (ADVAIR) 14 PUFF/1 INHALER INH SCH (20:30)
[2017-12-05] MEDS: IPRATROPIUM BROMIDE/ALBUTEROL respimat INH INH SCH (20:31)
[2017-12-05] MEDS: TRAZODONE HCL 100 MG TAB PO SCH (20:32)
[2017-12-05 22:54] VITALS: BP 151/82; PULSE 78; TEMP 36.9; O2SAT 92
[2017-12-06] MEDS: CEFDINIR 300 MG CAP PO SCH ×2 (05:27→16:12)
[2017-12-06] MEDS: ACETAMINOPHEN 325 MG TAB PO PRN ×2 (07:59→23:20)
[2017-12-06] MEDS: BuPROPion XL 150 MG TABCR PO SCH (07:59)
[2017-12-06] MEDS: PANTOprazole SOD 40 MG TAB PO SCH (08:00)
[2017-12-06] MEDS: MULTIVITAMIN TAB PO SCH (08:00)
[2017-12-06] MEDS: ALLOPURINOL 100 MG TAB PO SCH (08:00)
[2017-12-06] MEDS: ATORVASTATIN 10 MG TAB PO SCH (08:00)
[2017-12-06] MEDS: ASPIRIN 81 MG ECTAB PO SCH (08:00)
[2017-12-06] MEDS: VENLAFAXINE HCL XR 150 MG CAPXR PO SCH ×2 (08:00→20:07)
[2017-12-06] MEDS: MONTELUKAST SOD 10 MG TAB PO SCH (08:00)
[2017-12-06] MEDS: ENOXAPARIN 40 MG/0.4 ML SYR SQ SCH (08:01)
[2017-12-06] MEDS: NICOTINE 14 MG/24 HR TDSY TD SCH (08:02)
[2017-12-06] MEDS: NYSTATIN SUSP 500,000 U/5 ML UDC PO SCH ×4 (08:02→20:07)
[2017-12-06] MEDS: METRONIDAZOLE 0.75% TOPICAL GEL 45 GM TUBE TOP SCH ×2 (08:02→20:07)
[2017-12-06] MEDS: IPRATROPIUM BROMIDE/ALBUTEROL respimat INH INH SCH ×2 (08:03→20:07)
[2017-12-06] MEDS: FLUTICASONE/SALMETEROL 250/50 (ADVAIR) 14 PUFF/1 INHALER INH SCH ×2 (08:04→20:07)
[2017-12-06] MEDS: TIOTROPIUM BROMIDE 5 PUFF/90 MCG INH INH SCH (08:04)
[2017-12-06 08:06] VITALS: BP 161/85; PULSE 73; TEMP 36.6; O2SAT 94
[2017-12-06] MEDS: LISDEXAMFETAMINE DIMESYLATE 30 MG CAP PO SCH (08:06)
[2017-12-06] MEDS: PATIENT'S OWN CONTROLLED MED PO SCH (08:06)
[2017-12-06 08:17] VITALS: BP 142/82
[2017-12-06 12:06] VITALS: BP 131/68
--- NOTE | 2017-12-06 15:36 | Progress Note ---
Internal Med Progress Note Date of Service: Dec 06, 2017. Provider Documentation: SUBJECTIVE: resting comfortably coughing up yellow sputum sob improved no chest pain ambulated ok weakness improving appetite improved today no diarrhea OBJECTIVE: Vital Signs-as noted below Exam: General-alert and oriented. ENT-Normal hearing Neck-no neck masses Lungs-cta b/l no wheezing no crackles present Heart-S1 and S2 heard regular rate and rhythm no murmurs Abdomen-Soft bowel sounds present non tender no distension Extremities-no edema no erythema Neuro-alert and awake moves extremities Lab data as noted below. ASSESSMENT & PLAN: This is a 67-year-old female who presents with severe sepsis/septic shock possibly from pneumonia. 1. Severe sepsis/septic shock, mostly from community acquired pneumonia - was on Zosyn and doxycycline resolved much improved currently on po omnicef will complete total 10-14day tx appreciate pulmonary inputs 2. acute kidney failure and chronic kidney disease stage III, baseline creatinine about 1.1, creatinine on presentation 1.5, received IV fluids. resolved. 3. History of gastroesophageal reflux disease, proton pump inhibitor. 4. History of chronic obstructive pulmonary disease, does not seem to be in exacerbation at this time. We hold home nebs, Spiriva and Advair. on nebs prn 5. History of gout on allopurinol. 6. History of hyperlipidemia, on statin. 7. Deep vein thrombosis prophylaxis, SCDs and heparin subQ DISPOSITION to be determined pt/ot social service for d/c planning Vital Signs: Date Time Temp Pulse Resp B/P (MAP) Pulse Ox O2 Delivery O2 Flow Rate FiO2 12/06/17 12:06 131/68 (89) 12/06/17 08:17 142/82 (102) 12/06/17 08:06 36.6 73 17 161/85 (110) 94 Nasal Cannula 2.0 12/06/17 08:00 Nasal Cannula 2.0 12/06/17 00:00 Nasal Cannula 2.0 12/05/17 22:54 36.9 78 20 151/82 (105) 92 Nasal Cannula 2.0 Humidified Oxygen 12/05/17 16:08 36.5 85 19 164/75 (104) 90 Nasal Cannula 2.0 12/05/17 16:00 Nasal Cannula 2.0 Lab Results: Results Past 24 Hours Test 12/06/17 07:55 Range/Units Bedside Glucose 76 70-90 mg/dl
[2017-12-06] MEDS: HydrALAZINE HCL 20 MG/ML VIAL IV. PRN (16:12)
[2017-12-06 16:24] VITALS: BP_SYST 170; BP_SYST 187; BP_DIAS 91; BP_DIAS 93; PULSE 79; TEMP 36.7; O2SAT 96
[2017-12-06] MEDS: TRAZODONE HCL 100 MG TAB PO SCH (20:07)
[2017-12-06 23:16] VITALS: BP 130/75; PULSE 78; TEMP 36.7; O2SAT 92
[2017-12-06] MEDS: LORAZEPAM 1 MG TAB PO PRN (23:20)
[2017-12-07] MEDS: CEFDINIR 300 MG CAP PO SCH ×2 (05:34→17:43)
[2017-12-07 06:39] LABS: HEMATOCRIT 38.7 % (37-47); HEMOGLOBIN 12.6 g/dL (12.0-16.0); MEAN CELL VOLUME 92.6 fL (80-100); MEAN CORPUSCULAR HEMOGLOBIN 30.1 pg (25-34); MEAN CORPUSCULAR HGB CONC 32.6 g/dl (32-36); MEAN PLATELET VOLUME 10.3 fL (7.4-10.4); PLATELET COUNT 318 K/uL (130-400); RED CELL DISTRIBUTION WIDTH CV 14.6 % (11.5-14.5); RED CELL DISTRIBUTION WIDTH SD 49.5 fL (36.4-46.3); WHITE BLOOD COUNT 10.35 K/uL (4.8-10.8)
[2017-12-07 07:08] VITALS: BP 126/73; PULSE 79; TEMP 36.7; O2SAT 92
[2017-12-07 07:09] LABS: CALCIUM 8.8 mg/dl (8.5-10.1); CREATININE 1.03 mg/dl (0.60-1.20); POTASSIUM 4.5 mmol/L (3.5-5.1)
[2017-12-07] MEDS: FLUTICASONE/SALMETEROL 250/50 (ADVAIR) 14 PUFF/1 INHALER INH SCH (08:20)
[2017-12-07] MEDS: ACETAMINOPHEN 325 MG TAB PO PRN (08:20)
[2017-12-07] MEDS: IPRATROPIUM BROMIDE/ALBUTEROL respimat INH INH SCH (08:21)
[2017-12-07] MEDS: TIOTROPIUM BROMIDE 5 PUFF/90 MCG INH INH SCH (08:22)
[2017-12-07] MEDS: PATIENT'S OWN CONTROLLED MED PO SCH (08:22)
[2017-12-07] MEDS: MULTIVITAMIN TAB PO SCH (08:23)
[2017-12-07] MEDS: NYSTATIN SUSP 500,000 U/5 ML UDC PO SCH ×3 (08:23→17:43)
[2017-12-07] MEDS: ALLOPURINOL 100 MG TAB PO SCH (08:23)
[2017-12-07] MEDS: LISDEXAMFETAMINE DIMESYLATE 30 MG CAP PO SCH (08:23)
[2017-12-07] MEDS: NICOTINE 14 MG/24 HR TDSY TD SCH (08:24)
[2017-12-07] MEDS: MONTELUKAST SOD 10 MG TAB PO SCH (08:24)
[2017-12-07] MEDS: ATORVASTATIN 10 MG TAB PO SCH (08:24)
[2017-12-07] MEDS: BuPROPion XL 150 MG TABCR PO SCH (08:25)
[2017-12-07] MEDS: VENLAFAXINE HCL XR 150 MG CAPXR PO SCH (08:25)
[2017-12-07] MEDS: ASPIRIN 81 MG ECTAB PO SCH (08:25)
[2017-12-07] MEDS: PANTOprazole SOD 40 MG TAB PO SCH (08:25)
[2017-12-07] MEDS: ENOXAPARIN 40 MG/0.4 ML SYR SQ SCH (08:27)
[2017-12-07] MEDS: METRONIDAZOLE 0.75% TOPICAL GEL 45 GM TUBE TOP SCH (08:27)
[2017-12-07 15:09] VITALS: BP 135/80; PULSE 86; TEMP 36.6; O2SAT 93
[2017-12-07] MEDS ORDERED: CEFD300C3 PO (15:24)
[2017-12-07] MEDS ORDERED: GUAISYP4 PO (15:24)
[2017-12-07] MEDS ORDERED: NICO14DI5 TD (15:24)
[2017-12-07] MEDS ORDERED: NYSS5 PO (15:24)
[2017-12-07] MEDS ORDERED: LCTX PO (15:24)
--- NOTE | 2017-12-07 15:28 | Discharge Instructions ---
Discharge Instructions Date of Service Dec 07, 2017. Admission Reason for Admission: Severe Sepsis Discharge Discharge Diagnosis / Problem: SEVERE SEPSIS/SEPTIC SHOCK, COMMUNITY ACQUIRED PNEUMONIA Discharge Goals Goal(s): Decrease discomfort, Improve function Activity Recommendations Activity Limitations: resume your previous activity . Instructions / Follow-Up Instructions / Follow-Up FOLLOWUP WITH FAMILY DOCTOR ON December AT 2:45PM TO USE OXYGEN 24/7 2-3 LTS VIA NASAL CANULA FOR NOW.FURTHER RECOMMENDATIONS PER FAMILY DOCTOR. FOLLOWUP CHEST X RAY IN ONE MONTH WITH FAMILY DOCTOR. FURTHER NICOTINE PATCH PER FAMILY DOCTOR. STRONGLY ADVICE FOR SMOKING CESSATION Current Hospital Diet Patient's current hospital diet: Regular Diet Discharge Diet Recommended Diet: Regular Diet, AHA Diet (Heart Healthy) Pending Studies Studies pending at discharge: no Medical Emergencies . Who to Call and When: Medical Emergencies: If at any time you feel your situation is an emergency, please call 911 immediately. . Non-Emergent Contact Non-Emergency issues call your: Primary Care Provider . . "Provider Documentation" section prepared by Nikolay Torres. .
--- NOTE | 2017-12-07 16:36 | Progress Note ---
Internal Med Progress Note Date of Service: Dec 07, 2017. Provider Documentation: SUBJECTIVE: resting comfortably ambulating fine eating fine saturating fine ion 2lts afebrile ok to go home OBJECTIVE: Vital Signs-as noted below Exam: General-alert and oriented. ENT-Normal hearing Neck-no neck masses Lungs-cta b/l no wheezing no crackles present Heart-S1 and S2 heard regular rate and rhythm no murmurs Abdomen-Soft bowel sounds present non tender no distension Extremities-no edema no erythema Neuro-alert and awake moves extremities Lab data as noted below. ASSESSMENT & PLAN: This is a 67-year-old female who presents with severe sepsis/septic shock possibly from pneumonia. 1. Severe sepsis/septic shock, mostly from community acquired pneumonia - was on Zosyn and doxycycline resolved much improved currently on po omnicef will complete total 10-14day tx appreciate pulmonary inputs stable to d/c home today advised smoking cessation to use oxygen 24/7 for now f/u cxr in one month with pcp 2. acute kidney failure and chronic kidney disease stage III, baseline creatinine about 1.1, creatinine on presentation 1.5, received IV fluids. resolved. 3. History of gastroesophageal reflux disease, proton pump inhibitor. 4. History of chronic obstructive pulmonary disease, does not seem to be in exacerbation at this time. d/c on home inhalers and nebs 5. History of gout on allopurinol. 6. History of hyperlipidemia, on statin. discharged home Vital Signs: Date Time Temp Pulse Resp B/P (MAP) Pulse Ox O2 Delivery O2 Flow Rate FiO2 12/07/17 15:09 36.6 86 20 135/80 (98) 93 Nasal Cannula 2.0 12/07/17 08:45 Nasal Cannula 2.0 12/07/17 07:08 36.7 79 20 126/73 (90) 92 Nasal Cannula 2.0 12/07/17 00:00 Nasal Cannula 2.0 12/06/17 23:16 36.7 78 20 130/75 (93) 92 Nasal Cannula 2.0 Humidified Oxygen Lab Results: Results Past 24 Hours Test 12/07/17 06:20 12/07/17 07:29 Range/Units White Blood Count 10.35 4.8-10.8 K/uL Red Blood Count 4.18 4.2-5.4 M/uL Hemoglobin 12.6 12.0-16.0 g/dL Hematocrit 38.7 37-47 % Mean Corpuscular Volume 92.6 80-100 fL Mean Corpuscular Hemoglobin 30.1 25-34 pg Mean Corpuscular Hemoglobin Concent 32.6 32-36 g/dl Platelet Count 318 130-400 K/uL Mean Platelet Volume 10.3 7.4-10.4 fL RDW Standard Deviation 49.5 36.4-46.3 fL RDW Coefficient of Variation 14.6 11.5-14.5 % Neutrophils % (Manual) 57.0 % Lymphocytes % (Manual) 28.9 % Monocytes % (Manual) 3.5 % Eosinophils % (Manual) 1.8 % Basophils % (Manual) 0.9 % Metamyelocytes % 3.5 % Myelocytes % 4.4 % Neutrophils # (Manual) 5.90 1.4-6.5 K/uL Total Absolute Neutrophils 5.90 1.4-6.5 K/uL Lymphocytes # (Manual) 2.99 1.2-3.4 K/uL Total Absolute Lymphocytes 2.99 1.2-3.4 K/uL Monocytes # (Manual) 0.36 0.11-0.59 K/uL Eosinophils # (Manual) 0.19 0-0.5 K/uL Basophils # (Manual) 0.09 0-0.2 K/uL Metamyelocytes # 0.36 0-0 K/uL Myelocytes # 0.46 0-0 K/uL Toxic Granulation 3+ Sodium Level 137 136-145 mmol/L Potassium Level 4.5 3.5-5.1 mmol/L Chloride Level 99 98-107 mmol/L Carbon Dioxide Level 36 21-32 mmol/L Anion Gap 2.0 3-11 mmol/L Blood Urea Nitrogen 13 7-18 mg/dl Creatinine 1.03 0.60-1.20 mg/dl Est Creatinine Clear Calc Drug Dose 52.9 ml/min Estimated GFR () 65.1 Estimated GFR (Non- 56.2 BUN/Creatinine Ratio 12.5 10-20 Random Glucose 72 70-99 mg/dl Calcium Level 8.8 8.5-10.1 mg/dl Magnesium Level 2.1 1.8-2.4 mg/dl Bedside Glucose 72 70-90 mg/dl
--- NOTE | 2017-12-07 16:42 | Discharge Summary ---
Discharge Summary Date of Service Dec 07, 2017. Discharge Summary Admission Date: Nov 29, 2017 at 17:26 Discharge Date: Dec 07, 2017 Discharge Disposition: Home with services Principal Diagnosis: SEVERE SEPSIS/SEPTIC SHOCK COMMUNITY ACQUIRED PNEUMONIA Secondary Diagnoses/Problems: for chronic kidney disease stage III, COPD severe, hypertension, gout, GERD, hyperlipidemia, history of tympanoplasty, history of prior radical mastoidectomy in 1963, history of rosacea presents Procedures: CXR: 1. Large consolidation of the right lung base with right pleural effusion suggests possible pneumonia. Close follow-up is needed to document resolution. 2. Mild bilateral interstitial coarsening suggests pulmonary vascular congestion. CT CHEST : 1. Extensive airspace disease with near complete consolidation involving the right middle and right upper lobes with associated central air bronchograms. No obstructing endobronchial lesion identified. These findings suggest pneumonia. Follow-up is needed to document complete resolution. 2. Small right and trace left pleural effusions with subsegmental left basilar consolidation suggesting atelectasis. 3. Mild mediastinal and right hilar adenopathy is likely reactive. 4. Cardiomegaly with mild pulmonary edema. 5. Indeterminate 5 mm solid nodule of the apical segment right upper lobe. Consultations: Dr. Hardy-puljose Medication Reconciliation New Medications: Lactobacillus Acidophilus (Lactinex) Tab 2 TAB PO BID for 10 Days, TAB Cefdinir (Cefdinir) 300 Mg Cap 300 MG PO Q12H, #10 CAP Guaifenesin/Codeine (Robitussin-Ac Syrup) Syrp 10 ML PO Q6H PRN for Cough for 7 Days Nicotine (Nicoderm Cq 14MG Patch) 14 Mg/24 Hr Dis 1 PATCH TD QAM, #30 Nystatin (Nystatin) 5 Ml Susp 5 ML PO QID for 5 Days Continued Medications: Allopurinol (Allopurinol) 100 Mg Tab 100 MG PO DAILY Aspirin (Aspirin Ec) 81 Mg Tab 81 MG PO DAILY Atorvastatin (Lipitor) 10 Mg Tab 10 MG PO DAILY Bupropion Hcl (Bupropion Hcl Xl) 150 Mg Tab 150 MG PO DAILY, #30 Calcium Carbonate-Cholecalcife (Caltrate 600+D) 1 Tab Tab 1 TAB PO QAM Clobetasol Propionate (Clobetasol Propionate) 90 Appln/30 Gm Oint 1 APPLN TOP UD USE 1 WEEK AT A TIME FOR FLARE UPS Estrogens, Conjugated (Premarin) 14 Appln/30 Gm Cr 1 APPLN PV HS Fluticasone Prop/Salmeterol (Advair Diskus 250/50 60 Dose) 1 Ea Aerp 1 PUFF PO BID Fluticasone Propionate (Fluticasone Propionate) 120 Sprays/6000 Mcg Inha 2 SPRAYS ROLDAN DAILY Home O2 Therapy (Oxygen) Gas 2 LITERS NA PRN Ipratropium-Albuterol (Duoneb) 3 Ml Nebu 1 TREATMENT INH QID PRN for SOB/Wheezing, INHA Ipratropium-Albuterol (Combivent Respimat) 1 Aer Aer 1 PUFF INH BID Ketoconazole (Topical) (Ketoconazole) 2 % Sha 1 APPL TOP DAILY PRN for Lisdexamfetamine Dimesylate (Vyvanse) 30 Mg Cap 30 MG PO DAILY Lorazepam (Ativan) 1 Mg Tab 1 MG PO BID PRN for Anxiety, TAB Metronidazole HCl (Metronidazole) 135 Appln/45 Gm Gel 1 APPLN TOP BID for FACE Montelukast Sod (Montelukast Sodium) 10 Mg Tab 10 MG PO DAILY Multivitamin (Multivitamin) Tab 1 TAB PO QAM, TAB Omeprazole (Prilosec) 20 Mg Capcr 20 MG PO DAILY PRN for ACID REFLUX, CAP Tiotropium [place] (Spiriva Handihaler) 30 Puff/540 Mcg Aerp 1 CAP INH DAILY, INHALER Trazodone HCl (Trazodone HCl) 100 Mg Tab 100 MG PO HS Triamcinolone Acet (Triamcinolone Acetonide) 45 Appln/15 Gm Oint 1 APPLN TOP 2XWK PRN for HS, DO NOT USE WITH CLOBESTASOL Venlafaxine Hcl (Effexor Extended Rel) 150 Mg Capcr 150 MG PO BID Discontinued Medications: Ibuprofen Tab (Advil) 200 Mg Tab 400 MG PO PRN UD, TAB Admission Information HPI (per Admitting provider): This is a 67-year-old female with past medical history significant for chronic kidney disease stage III, COPD severe, hypertension, gout, GERD, hyperlipidemia, history of tympanoplasty, history of prior radical mastoidectomy in 1962, history of rosacea presents with generalized weakness and found to be in severe sepsis/septic shock. The patient says since last Thursday, she was not feeling well, initially started with headaches and some mild fever that has gone but she has on and off right sided chest pain with generalized weakness, not feeling well and she came to the ER and found to be hypotensive and found to have pneumonia and severe sepsis. The patient denies any headache now. She was dizzy at home. Denies any blurred visions. No earache. No ear drainage. She has some nasal congestion, no sore throat, no difficulty swallowing. Has cough with whitish yellow phlegm. Denies any nausea, vomiting. Appetite is okay. No abdominal pain. Normal bowel and bladder movements. No blood in the urine, no blood in stool. No skin rash, no swelling in the legs. In the ER, while she was getting Levaquin, she developed rash and the Levaquin was stopped. The patient received Levaquin for several days in 2008 for COPD exacerbation. Currently resting comfortably and blood pressure is improving with IV fluids. Physical Exam (per Admitting): GENERAL: The patient is of moderate build. Mild distress respiratory. VITAL SIGNS: Temperature 36.4, pulse 112, respiratory rate 24, blood pressure when she came in was 77/53, currently 84/64, oxygen 100% on 4 liters. HEENT: No pallor, no icterus. Pupils equal, round, and react to light. Oral mucosa dry. NECK: No JVD, no neck masses, no carotid bruits. CARDIOVASCULAR: S1, S2 heard. Tachycardia. No murmurs. RESPIRATORY SYSTEM: Normal AP diameter. No accessory muscle use. Mild bibasilar crackles. No wheezing. ABDOMEN: Soft, bowel sounds present. Nontender. No distention. CENTRAL NERVOUS SYSTEM: Cranial nerves II-XII grossly intact. Nonfocal. EXTREMITIES: No edema, no erythema Hospital Course This is a 67-year-old female who presents with severe sepsis/septic shock possibly from pneumonia. 1. Severe sepsis/septic shock, mostly from community acquired pneumonia - was on Zosyn and doxycycline resolved much improved currently on po omnicef will complete total 10-14day tx appreciate pulmonary inputs stable to d/c home today advised smoking cessation to use oxygen 24/7 for now f/u cxr in one month with pcp 2. acute kidney failure and chronic kidney disease stage III, baseline creatinine about 1.1, creatinine on presentation 1.5, received IV fluids. resolved. 3.LUNG NODULE 5MM IN RIGHT UPPER LOBE F/U CT IN ONE YEAR PER PCP 3. History of gastroesophageal reflux disease, proton pump inhibitor. 4. History of chronic obstructive pulmonary disease, does not seem to be in exacerbation at this time. d/c on home inhalers and nebs 5. History of gout on allopurinol. 6. History of hyperlipidemia, on statin. discharged home Total time spent on discharge = 35MINUTES This includes examination of the patient, discharge planning, medication reconciliation, and communication with other providers. Discharge Instructions Discharge Instructions Date of Service Dec 07, 2017. Admission Reason for Admission: Severe Sepsis Discharge Discharge Diagnosis / Problem: SEVERE SEPSIS/SEPTIC SHOCK, COMMUNITY ACQUIRED PNEUMONIA Discharge Goals Goal(s): Decrease discomfort, Improve function Activity Recommendations Activity Limitations: resume your previous activity . Instructions / Follow-Up Instructions / Follow-Up FOLLOWUP WITH FAMILY DOCTOR ON December AT 2:45PM TO USE OXYGEN 24/ 2-3 LTS VIA NASAL CANULA FOR NOW.FURTHER RECOMMENDATIONS PER FAMILY DOCTOR. FOLLOWUP CHEST X RAY IN ONE MONTH WITH FAMILY DOCTOR. FURTHER NICOTINE PATCH PER FAMILY DOCTOR. STRONGLY ADVICE FOR SMOKING CESSATION Current Hospital Diet Patient's current hospital diet: Regular Diet Discharge Diet Recommended Diet: Regular Diet, AHA Diet (Heart Healthy) Pending Studies Studies pending at discharge: no Medical Emergencies . Who to Call and When: Medical Emergencies: If at any time you feel your situation is an emergency, please call 911 immediately. . Non-Emergent Contact Non-Emergency issues call your: Primary Care Provider . .
[2017-12-07 16:54] VITALS: BP 135/80; PULSE 86; TEMP 36.6; O2SAT 93
== END 2017-12-07 19:20 | disposition home health service (06) | DRG 871 ==
LOC: EDBD 15:26 → C.EDA 15:31 → C.MSICU 17:26 → ENRESERV 17:30 → C.MS2W 12-01 10:19
PROVIDERS: ADMIT Internal Medicine; ATTEND Internal Medicine
DX: A41.9 Sepsis, unspecified organism (principal); J18.9 Pneumonia, unspecified organism; R65.21 Severe sepsis with septic shock; N39.0 Urinary tract infection, site not specified; N17.9 Acute kidney failure, unspecified; J44.1 Chronic obstructive pulmonary disease with (acute) exacerbation; J90 Pleural effusion, not elsewhere classified; J44.0 Chronic obstructive pulmonary disease with (acute) lower respiratory infection; B37.0 Candidal stomatitis; R59.0 Localized enlarged lymph nodes; E83.42 Hypomagnesemia; I12.9 Hypertensive chronic kidney disease with stage 1 through stage 4 chronic kidney disease, or unspecified chronic kidney disease; N18.3 Chronic kidney disease, stage 3 (moderate); E78.5 Hyperlipidemia, unspecified; R21 Rash and other nonspecific skin eruption; K21.9 Gastro-esophageal reflux disease without esophagitis; M10.9 Gout, unspecified; F17.200 Nicotine dependence, unspecified, uncomplicated; Z79.82 Long term (current) use of aspirin; Z79.899 Other long term (current) drug therapy

== ENCOUNTER → 2017-12-31 | Outpatient (CLI) | payer BC ==
[~2017-12-31] MED LIST changes: +ADVIN25/60 PO; -ADVIN25050 INH; +ALL100 PO; +ASPI81TA28 PO; -ATOR-26 PO; +ATV/1 PO; +BUPR150T5 PO; -BUPRTAB51 PO; +CEFD300C3 PO; -CLBCRM30 TOP; -CMBIN INH; +DSY100 PO; +FLNIN/ NAE; +GUAISYP4 PO; +IPRA1AER2 INH; +IPRASOL4 INH; +LISD30CA4 PO; +LPT10 PO; -LSN20 PO; -METR1GEL3 TOP; +MTRG45 TOP; +NICO14DI5 TD; +NYSS5 PO; -PRED1SUS3; +PRMVC PV; +SPRIN/30 INH; -TIOTCAP INH; -TRAZ50TA35 PO; -TRIA0.1C20 TOP; +TRMO115 TOP; +[UNRECOGNIZED DRUG - CODE] TOP
== END | disposition home or self-care (01) ==
LOC: C.PATHSPEC 17:04
PROVIDERS: ATTEND Physician Assistant
DX: L57.0 Actinic keratosis (principal)

== ENCOUNTER → 2018-01-12 | Outpatient (CLI) | payer BC | END | disposition home or self-care (01) | LOC: C.LABSPEC 12:28 | PROVIDERS: ATTEND Physician Assistant | DX: N61.1 Abscess of the breast and nipple (principal) ==

== ENCOUNTER → 2018-01-13 | Outpatient (CLI) | payer BC ==
--- NOTE | 2018-01-13 16:25 | DIAGNOSTIC IMAGING REPORT ---
CHEST 2 VIEWS ROUTINE HISTORY: 67 years-old Female BACTERIAL PNEUMONIA acute pneumonia COMPARISON: Chest radiograph 12/01/2017 TECHNIQUE: PA and lateral views of the chest FINDINGS: Cardiac silhouette is mildly enlarged. Atherosclerosis of the aorta. No pneumothorax. There is markedly improved aeration of the bilateral lungs with only minimal linear subsegmental basilar opacities seen on the left. Within the right lung multifocal linear subsegmental opacities are seen within the right perihilar distribution and right lung base with persistent trace right pleural effusion. No overt pulmonary edema. The bones of the chest appear grossly intact. IMPRESSION: Improved aeration of the bilateral lungs with persistent subsegmental right perihilar and right lung base opacities suggesting residual pneumonia and/or pleural-parenchymal scarring with persistent trace right pleural effusion. The above report was generated using voice recognition software. It may contain grammatical, syntax or spelling errors. Electronically signed by: Bg Buckner M.D. 01/13/2018 4:24 PM Dictated Date/Time: 01/13/2018 4:22 PM
== END | disposition home or self-care (01) ==
LOC: C.RAD 15:59
PROVIDERS: ATTEND Internal Medicine
DX: J15.9 Unspecified bacterial pneumonia (principal)

== ENCOUNTER 2022-07-26 16:37 | Inpatient (IN) ==
[2022-07-26 17:13] LABS: Basophils # (auto) 0.05 K/uL (0-0.2); Basophils % (auto) 0.5 %; Eosinophils # (auto) 0.18 K/uL (0-0.50); Eosinophils % (auto) 1.6 %; Hematocrit (blood only) 45.3 % (34.1-44.9); Hemoglobin 15.1 g/dl (12.0-16.0); Immature Granulocytes # (auto) 0.03 K/uL (0.00-0.02); Immature Granulocytes % (auto) 0.3 %; Lymphocytes % (auto) 30.1 %; Mean Corpuscular Hemoglobin 31.7 pg (25.0-34.0); Mean Corpuscular Hgb Conc 33.3 g/dL (32.0-36.0); Mean Corpuscular Volume 95.2 fL (80.0-100.0); Mean Platelet Volume 10.2 fL (9.4-12.3); Monocytes # (auto) 0.78 K/uL (0.24-0.82); Monocytes % (auto) 7.1 %; Neutrophils # (auto) 6.64 K/uL (1.4-6.5); Neutrophils % (auto) 60.4 %; Platelet Count 281 K/uL (130-400); RDW Standard Deviation 45.7 fL (36.4-46.3); Red Blood Count 4.76 M/uL (3.93-5.22); White Blood Count 10.98 K/ul (4.8-10.8)
[2022-07-26] MEDS ORDERED: methylPREDNISolone 125 MG/2 ML VIAL IV STA (17:25)
[2022-07-26] MEDS ORDERED: ALBUT/IPRATROP 3MG/0.5MG NEB 3 ML VIAL NEB ONE (17:25)
[2022-07-26 17:29] LABS: Partial Thromboplastin Ratio 1.1; Partial Thromboplastin Time 31.1 Seconds (21.0-31.0); Prothrombin Time 10.2 Seconds (9.0-12.0)
--- NOTE | 2022-07-26 17:30 | Emergency Department Note ---
Impression & Plan Acute exacerbation of chronic obstructive airways disease, Hypoxia ED Provider Note Provider: Erik Mckeon MD DATE OF SERVICE: 07/26/2022 CHIEF COMPLAINT: Shortness of breath, weakness HISTORY OF PRESENT ILLNESS: Patient is a 72-year-old female history of COPD presenting here stating that about 5 days ago on Thursday she started with some mild cough and cold symptoms. This procedure of the neck several days but over the last 24 to 36 hours she states her breathing got significantly worse. Has not used any albuterol at home. Went to urgent care and referred here she is found to be hypoxic. States that she is a former smoker and has history of COPD. Cough but minimal phlegm. Denies significant abdominal pain or chest pain. Feels very weak but has not fallen. Denies significant leg swelling or recent travel. Questionable contact with others who may have had adenovirus. Patient denies a significantly sore throat. Chronic hearing issues. REVIEW OF SYSTEMS: A total of 10 review of systems was obtained and negative except as stated above in the HPI. PAST MEDICAL HISTORY: As noted above MEDICATIONS: Reviewed home medications. SOCIAL HISTORY: Retired from University, lives alone, former smoker PHYSICAL EXAM: GENERAL: alert and oriented in no acute distress on stretcher but fatigued appearance Head: normocephalic and atraumatic EYES: No injection, discharge or icterus. NECK: Trachea midline. ENT: Mucous membranes pink and moist. LUNGS: Airway patent. No retraction but with some tachypnea and significantly wheezy HEART: Regular rate and rhythm. No chest wall tenderness ABDOMEN: Soft and non-tender, without guarding or rebound. SKIN: Acyanotic, warm, dry, without rashes EXTREMITIES: Without swelling, tenderness or deformity NEUROLOGICAL: No focal deficits. No aphasia. No facial droop or slurred speech. Ambulatory. EK bpm normal sinus rhythm. No PVC or PAC. No acute ST segment elevation or depression. QTc 485. CONTINUOUS CARDIAC MONITORING: was ordered and showed a heart rate of 90s-100s bpm in NSR to sinus tachycardia Patient's laboratory studies and imaging reviewed. Differential includes Reactive airway disease, pneumonia, pneumothorax, COPD, CHF, infections, cardiac ischemia, pulmonary embolism, musculoskeletal, gastrointestinal, as well as other pathologies. IMPRESSION/MEDICAL DECISION MAKING: Patient history of COPD found to be hypoxic on room air significantly wheezy. Believe likely COPD exacerbation. Influenza/RSV/COVID testing sent as well as chest x-ray and basic labs. No significant leg swelling and lower suspicion for CHF. Benign abdomen. Does not appear meningitic. Has oxygen at home that she can use if she really needs it. Patient does require some oxygen supplementation but appears significantly fatigued and weak. History of pneumonia and sepsis reported. No recent travel or lower suspicion for acute VTE especially in light of her significant wheezing. Given a DuoNeb and some steroids. Hypoxia count of 10.98 is nonspecific. COVID and influenza and RSV negative. Slight hyponatremia but no significant renal dysfunction. No troponin elevation. Chest x-ray with some cardiomegaly and mild chronic interstitial thickening. Still wheezing with some hypoxia after treatment. Will bring into the hospital after discussion with her. Doxycycline added for any bacterial component for likely COPD exacerbation. Hospitalist contacted. DIAGNOSIS: COPD exacerbation with hypoxia DISPOSITION: Hospitalist will evaluate Patient was agreeable with this plan. Past Med/Surg History Medical History TARA (acute kidney injury) Anxiety Basal cell carcinoma of right ear Chronic obstructive pulmonary disease Depression GERD (gastroesophageal reflux disease) Gout Hearing deficit Hyperlipidemia Migraine On home oxygen therapy Osteoarthritis Personal history of colonic polyps Sleep apnea Surgical History History of arthroscopy of left knee History of bilateral cataract extraction History of colonoscopy History of ear surgery History of endoscopic sinus surgery History of mastoidectomy History of oral surgery History of tonsillectomy Status post Mohs surgery for basal cell carcinoma Family History Brother Family history of diabetes mellitus Social History Smoking Status: Never smoker Cigarettes Per Day: 20; Second Hand Exposure: No; Hx Alcohol Use: Yes Alcohol type: wine Hx Substance Use: No Preferred Language: Angolan Communication Ability: Effective [employer] Required: No Beliefs That Will Affect Care: None Current Living Situation: Alone Feels Safe at Home: Yes Assistive Devices: Glasses Allergies Allergies Allergy/AdvReac Type Severity Reaction Status Date / Time levofloxacin AdvReac Intermediate Immediate Verified 07/26/22 21:57 Itchy Rash at IV site on administration Home Meds Home Medications Medication Instructions Recorded Confirmed allopurinol 100 mg tablet 100 mg PO QAM 07/21/18 07/26/22 aspirin 81 mg tablet,delayed 81 mg PO QAM 07/21/18 07/26/22 release (Jeremias Low Dose Aspirin) bupropion HCl 150 mg tablet,12 hr 150 mg PO QAM 07/21/18 07/26/22 sustained-release calcium carbonate 600 mg-vitamin 1 tab PO QAM 07/21/18 07/26/22 D3 10 mcg (400 unit) tablet clobetasol 0.05 % topical cream 1 applic topical HS 07/21/18 07/26/22 conjugated estrogens 0.625 mg/gram 1 dose vaginal 2XWK 07/21/18 07/26/22 vaginal cream (Premarin) fluticasone 250 mcg-salmeterol 50 1 inh inhalation BID 07/21/18 07/26/22 mcg/dose blistr powdr for inhalation (Advair Diskus) fluticasone propionate 50 2 spray intranasal DAILY PRN 07/21/18 07/26/22 mcg/actuation nasal Allergy Symptoms spray,suspension (Flonase Allergy Relief) ipratropium 0.5 mg-albuterol 3 mg 3 ml inhalation QID PRN Shortness 07/21/18 07/26/22 (2.5 mg base)/3 mL nebulization Of Breath soln metronidazole 0.75 % topical gel 1 applic topical BID 07/21/18 07/26/22 montelukast 10 mg tablet 10 mg PO QAM 07/21/18 07/26/22 nystatin 100,000 unit/mL oral 5 ml PO QID PRN thrush 07/21/18 07/26/22 suspension omeprazole 20 mg tablet,delayed 20 mg PO DAILY PRN Acid Reflux 07/21/18 07/26/22 release silver sulfadiazine 1 % topical 1 applic topical DAILY PRN Rash 07/21/18 07/26/22 cream (Silvadene) tiotropium bromide 18 mcg capsule 1 cap inhalation QAM 07/21/18 07/26/22 with inhalation device (Spiriva with HandiHaler) trazodone 100 mg tablet 100 mg PO HS 07/21/18 07/26/22 triamcinolone acetonide 0.1 % 1 applic topical 2XWK 07/21/18 07/26/22 topical ointment venlafaxine 150 mg 300 mg PO QAM 07/21/18 07/26/22 capsule,extended release 24 hr (Effexor XR) ipratropium 20 mcg-albuterol 100 1 puff inhalation QID 07/25/21 07/26/22 mcg/actuation mist for inhalation (Combivent Respimat) vitamins A,C,I-gmew-tiusbn 14,320 1 cap PO BID 06/25/22 07/26/22 unit-226 mg-200 unit capsule (ICaps AREDS) ezetimibe 10 mg tablet 10 mg PO DAILY 07/26/22 07/26/22 levothyroxine 75 mcg tablet 75 mcg PO DAILY 07/26/22 07/26/22 lisinopril 10 mg tablet 10 mg PO BID 07/26/22 07/26/22 prednisolone acetate 1 % eye 1 drp ophthalmic (eye) TID 07/26/22 07/26/22 drops,suspension rosuvastatin 40 mg tablet 40 mg PO DAILY 07/26/22 07/26/22 Results & Data (ED) Vital Signs Vital Signs - 24 hr 07/26/22 16:40 07/26/22 17:46 07/26/22 17:46 Temperature 36.9 C Temperature Source Temporal Artery Scan Pulse Rate 104 H Pulse Rate [Finger] 98 H Pulse Rate [Right Finger] 94 H Respiratory Rate 28 H 22 22 Respiratory Effort / Characteristics Non-Labored Spontaneous Non-Labored Respiratory Depth Normal Blood Pressure 136/89 Blood Pressure [Right Arm] Blood Pressure Mean 104 Blood Pressure Mean [Right Arm] Blood Pressure Position Sitting Pulse Oximetry 85 L 98 97 Oxygen Delivery Method Room Air Nasal Cannula Nebulizer Oxygen Flow Rate 3 Sepsis Recent Fever Within 48 Hours No Sepsis New/Unexplained Change in Mental Status No Sepsis Action Taken by Nursing No Action Required Oxygen Flow Rate - Titration Fraction of Inspired Oxygen - Titration Pulse Oximetry Post Tiitration 07/26/22 17:46 07/26/22 18:29 07/26/22 19:06 Temperature Temperature Source Pulse Rate Pulse Rate [Finger] Pulse Rate [Right Finger] 95 H Respiratory Rate 22 Respiratory Effort / Characteristics Non-Labored Respiratory Depth Blood Pressure Blood Pressure [Right Arm] 131/86 Blood Pressure Mean Blood Pressure Mean [Right Arm] 101 Blood Pressure Position Pulse Oximetry 97 100 99 Oxygen Delivery Method Nebulizer Nebulizer Nebulizer Oxygen Flow Rate Sepsis Recent Fever Within 48 Hours Sepsis New/Unexplained Change in Mental Status Sepsis Action Taken by Nursing Oxygen Flow Rate - Titration Fraction of Inspired Oxygen - Titration Pulse Oximetry Post Tiitration 07/26/22 19:08 07/26/22 19:08 07/26/22 19:29 Temperature Temperature Source Pulse Rate Pulse Rate [Finger] Pulse Rate [Right Finger] Respiratory Rate Respiratory Effort / Characteristics Respiratory Depth Blood Pressure Blood Pressure [Right Arm] Blood Pressure Mean Blood Pressure Mean [Right Arm] Blood Pressure Position Pulse Oximetry 97 97 97 Oxygen Delivery Method Nebulizer Nebulizer Nasal Cannula Nebulizer Oxygen Flow Rate 7 Sepsis Recent Fever Within 48 Hours Sepsis New/Unexplained Change in Mental Status Sepsis Action Taken by Nursing Oxygen Flow Rate - Titration 3 Fraction of Inspired Oxygen - Titration 93 Pulse Oximetry Post Tiitration 07/26/22 20:00 07/26/22 20:57 07/26/22 21:00 Temperature Temperature Source Pulse Rate Pulse Rate [Finger] 92 H 99 H Pulse Rate [Right Finger] Respiratory Rate 20 18 Respiratory Effort / Characteristics Non-Labored Spontaneous Respiratory Depth Normal Blood Pressure Blood Pressure [Right Arm] 118/76 127/84 Blood Pressure Mean Blood Pressure Mean [Right Arm] 90 98 Blood Pressure Position Pulse Oximetry 90 89 L 94 Oxygen Delivery Method Nasal Cannula Nasal Cannula Nasal Cannula Oxygen Flow Rate 3 3 5 Sepsis Recent Fever Within 48 Hours Sepsis New/Unexplained Change in Mental Status Sepsis Action Taken by Nursing Oxygen Flow Rate - Titration 5 Fraction of Inspired Oxygen - Titration Pulse Oximetry Post Tiitration 91 Laboratory Data Result diagrams: 07/26/22 16:50 07/26/22 16:50 Lab Results 07/26/22 07/26/22 07/26/22 Range/Units 16:50 16:50 16:50 WBC 10.98 H (4.8-10.8) K/ul RBC 4.76 (3.93-5.22) M/uL Hgb 15.1 (12.0-16.0) g/dl Hct 45.3 H (34.1-44.9) % MCV 95.2 (80.0-100.0) fL MCH 31.7 (25.0-34.0) pg MCHC 33.3 (32.0-36.0) g/dL RDW Std Deviation 45.7 (36.4-46.3) fL RDW Coeff of Kevin 13.0 (11.5-14.5) % Plt Count 281 (130-400) K/uL MPV 10.2 (9.4-12.3) fL Immature Gran % (Auto) 0.3 % Neut % (Auto) 60.4 % Lymph % (Auto) 30.1 % Brewster % (Auto) 7.1 % Eos % (Auto) 1.6 % Baso % (Auto) 0.5 % Neut # (Auto) 6.64 H (1.4-6.5) K/uL Lymph # (Auto) 3.30 (1.2-3.4) K/uL Brewster # (Auto) 0.78 (0.24-0.82) K/uL Eos # (Auto) 0.18 (0-0.50) K/uL Baso # (Auto) 0.05 (0-0.2) K/uL Immature Gran # (Auto) 0.03 H (0.00-0.02) K/uL PT 10.2 (9.0-12.0) Seconds INR 1.0 (0.9-1.1) APTT 31.1 H (21.0-31.0) Seconds PTT Ratio 1.1 Sodium 133 L (136-145) mmol/L Potassium 4.3 (3.5-5.1) mmol/L Chloride 96 L (98-107) mmol/L Carbon Dioxide 31 (21-32) mmol/L Anion Gap 6 (3-11) BUN 22 (6-23) mg/dl Creatinine 1.15 (0.6-1.2) mg/dl Est Cr Clr Drug Dosing 44.3 ml/min Est GFR ( Amer) 55.0 ml/min Est GFR (Non-Af Amer) 47.5 ml/min BUN/Creatinine Ratio 19.1 (10-20) Glucose 92 (70-99(Fasting)) mg/dl Calcium 9.4 (8.5-10.1) mg/dl Magnesium 2.1 (1.7-2.4) mg/dl Total Bilirubin 0.6 (0.2-1.0) mg/dl AST 23 (13-39) U/L ALT 21 (7-52) U/L Alkaline Phosphatase 73 (34-104) U/L Troponin I High Sens (0-14) pg/ml Total Protein 7.9 (6.0-8.3) gm/dl Albumin 4.6 (3.4-5.0) gm/dl Globulin 3.3 (2.5-4.0) gm/dl Albumin/Globulin Ratio 1.4 (0.9-2) SARS-CoV-2 (PCR) (Negative) Influenza Type A (PCR) (Neg) Influenza Type B (PCR) (Neg) RSV (RT-PCR) (Neg) 07/26/22 07/26/22 Range/Units 16:50 17:44 WBC (4.8-10.8) K/ul RBC (3.93-5.22) M/uL Hgb (12.0-16.0) g/dl Hct (34.1-44.9) % MCV (80.0-100.0) fL MCH (25.0-34.0) pg MCHC (32.0-36.0) g/dL RDW Std Deviation (36.4-46.3) fL RDW Coeff of Kevin (11.5-14.5) % Plt Count (130-400) K/uL MPV (9.4-12.3) fL Immature Gran % (Auto) % Neut % (Auto) % Lymph % (Auto) % Brewster % (Auto) % Eos % (Auto) % Baso % (Auto) % Neut # (Auto) (1.4-6.5) K/uL Lymph # (Auto) (1.2-3.4) K/uL Brewster # (Auto) (0.24-0.82) K/uL Eos # (Auto) (0-0.50) K/uL Baso # (Auto) (0-0.2) K/uL Immature Gran # (Auto) (0.00-0.02) K/uL PT (9.0-12.0) Seconds INR (0.9-1.1) APTT (21.0-31.0) Seconds PTT Ratio Sodium (136-145) mmol/L Potassium (3.5-5.1) mmol/L Chloride (98-107) mmol/L Carbon Dioxide (21-32) mmol/L Anion Gap (3-11) BUN (6-23) mg/dl Creatinine (0.6-1.2) mg/dl Est Cr Clr Drug Dosing ml/min Est GFR ( Amer) ml/min Est GFR (Non-Af Amer) ml/min BUN/Creatinine Ratio (10-20) Glucose (70-99(Fasting)) mg/dl Calcium (8.5-10.1) mg/dl Magnesium (1.7-2.4) mg/dl Total Bilirubin (0.2-1.0) mg/dl AST (13-39) U/L ALT (7-52) U/L Alkaline Phosphatase (34-104) U/L Troponin I High Sens 7.5 (0-14) pg/ml Total Protein (6.0-8.3) gm/dl Albumin (3.4-5.0) gm/dl Globulin (2.5-4.0) gm/dl Albumin/Globulin Ratio (0.9-2) SARS-CoV-2 (PCR) NEGATIVE (Negative) Influenza Type A (PCR) Negative (Neg) Influenza Type B (PCR) Negative (Neg) RSV (RT-PCR) Negative (Neg) Administered Medications Discontinued Medications Albuterol (Albut/Ipratrop 3mg/0.5mg Neb 3 Ml Vial) 12 ml NEB ONE ONE; Protocol Stop: 07/26/22 17:26 Last Admin: 07/26/22 17:45 Dose: 12 ml Documented By: AA Doxycycline Hyclate (Doxycycline Hyclate 100 Mg Cap) 100 mg PO NOW STA Stop: 07/26/22 17:51 Last Admin: 07/26/22 18:30 Dose: 100 mg Documented By: ASW Methylprednisolone (Methylprednisolone 125 Mg/2 Ml Vial) 125 mg IV NOW STA Stop: 07/26/22 17:26 Last Admin: 07/26/22 17:48 Dose: 125 mg Documented By: ASW Imaging Data Radiologist's Impression: Chest X-Ray 07/26/22 16:45 XR chest 1V portable HISTORY: Shortness of breath. COMPARISON: Chest 12/01/2017. FINDINGS: Mild diffuse interstitial thickening which is likely chronic. The cardiac silhouette remains mildly enlarged. No pleural effusions. No pneumothora x. No new focal lung consolidations to suggest a pneumonia. No evidence for pulmonary edema. IMPRESSION: Cardiomegaly with mild chronic interstitial thickening. Otherwise, no acute process within the chest. ACT 112: Negative or not required by law. Electronically signed by: Van Hope M.D. 07/26/2022 5:39 PM Discharge Plan Visit Data Chief Complaint: Shortness of Breath/Dyspnea Stated Complaint: SENT FORM [facility], OXYGEN LOW 85, SOB ED Provider: Erik Mckeon Discharge Problem: Acute exacerbation of chronic obstructive airways disease, Hypoxia Patient Disposition: Admitted As Inpatient Discharge Instructions Interventions: ED Discharge Assessment Last Done: 07/26/22 21:42
[2022-07-26 17:35] LABS: Albumin Globulin Ratio 1.4 (0.9-2); Albumin Level 4.6 gm/dl (3.4-5.0); BUN Creatinine Ratio 19.1 (10-20); Bilirubin,Total 0.6 mg/dl (0.2-1.0); Calcium 9.4 mg/dl (8.5-10.1); Creatinine Clr Calc Pharmacy 44.3 ml/min; Est GFR (Non-African American) 47.5 ml/min; Globulin 3.3 gm/dl (2.5-4.0); Magnesium 2.1 mg/dl (1.7-2.4); Potassium 4.3 mmol/L (3.5-5.1); Total Protein 7.9 gm/dl (6.0-8.3)
--- NOTE | 2022-07-26 17:41 | XRay Report ---
XR chest 1V portable HISTORY: Shortness of breath. COMPARISON: Chest 12/01/2017. FINDINGS: Mild diffuse interstitial thickening which is likely chronic. The cardiac silhouette remain s mildly enlarged. No pleural effusions. No pneumothorax. No new focal lung consolidations to suggest a pneumonia. No evidence for pulmonary edema. IMPRESSION: Cardiomegaly with mild chronic interstitial thickening. Otherwise, no acute process within the chest. ACT 112: Negative or not required by law. Electronically signed by: Van oHpe M.D. 07/26/2022 5:39 PM
[2022-07-26] MEDS ORDERED: DOXYCYCLINE HYCLATE 100 MG CAP PO STA (17:50)
[2022-07-26 18:30] LABS: Influenza A virus by PCR Negative (Neg); Influenza B virus by PCR Negative (Neg); RSV by PCR Negative (Neg); SARS CoV2 RNA(COVID-19)Cepheid NEGATIVE (Negative)
[2022-07-26] MEDS ORDERED: NITROGLYCERIN SL 0.4 MG/TAB TAB SL PRN (22:51)
[2022-07-26] MEDS ORDERED: PREMARIN VAG CRM 14 APPLN/30 GM TUBE PV SCH (22:51)
[2022-07-26] MEDS ORDERED: ALBUT/IPRATROP 3MG/0.5MG NEB 3 ML VIAL NEB PRN (22:51)
[2022-07-26] MEDS ORDERED: POLYETHYLENE (MIRALAX) 17 GM PACK PO PRN (22:51)
[2022-07-26] MEDS ORDERED: FLUTICASONE PROPIONATE NA SPR 16 GM BTL PRN (22:51)
[2022-07-26] MEDS ORDERED: ACETAMINOPHEN 325 MG TAB PO PRN (22:51)
[2022-07-26] MEDS ORDERED: NYSTATIN SUSP 500,000 U/5 ML UDC PO PRN (22:51)
[2022-07-26] MEDS ORDERED: PANTOprazole 40 MG TAB PO PRN (23:45)
--- NOTE | 2022-07-26 23:58 | History and Physical Report ---
DATE OF ADMISSION: 07/26/2022. CHIEF COMPLAINT: Shortness of breath. HISTORY OF PRESENT ILLNESS: A 72-year-old female with past medical history significant for hyperlipidemia, gouty arthropathy, hypothyroidism, history of COPD, seems to be on home oxygen, history of lung nodule, history of hypertension, asymptomatic bilateral carotid artery stenosis, GERD, history of dysphagia, history of chronic kidney disease stage III, rosacea, lichen sclerosus, right modified radical mastoidectomy, presents with shortness of breath. The patient says since last 2 days, she is having like runny nose, congestion kind of feeling. She is not getting better and getting short of breath and cough with whitish phlegm. Denies any fever or chills. No chest pain, no nausea, no vomiting, no abdominal pain. Normal bowel and bladder movements. Appetite is okay. No headache, no blurred visions, no earache, no sore throat. Currently, resting comfortably and hemodynamically stable. ALLERGIES: LEVAQUIN. PAST MEDICAL HISTORY: As mentioned above. PAST SURGICAL HISTORY: Carpal tunnel surgery, colonoscopy with biopsy, revision of eardrum structures. MEDICATIONS: The patient is on allopurinol 100 mg p.o. a.m., aspirin 81 mg p.o. a.m., bupropion 150 mg p.o. a.m., Combivent 1 puff inhalation q.i.d., ezetimibe 10 mg p.o. daily, Advair Diskus 1 inhalation b.i.d., Flonase 2 sprays intranasal daily p.r.n., DuoNeb q.i.d. p.r.n., levothyroxine 75 mcg p.o. daily, lisinopril 10 mg p.o. b.i.d., montelukast 10 mg p.o. a.m., omeprazole 20 mg p.o. daily p.r.n., prednisolone acetate 1 drop ophthalmic t.i.d., Premarin 1 dose vaginally 2 times a week, rosuvastatin 40 mg p.o. daily, Spiriva inhaler 1 capsule inhalation daily, trazodone 100 mg p.o. at bedtime, triamcinolone 1 application topically 2 times a week, Effexor XR 300 mg p.o. a.m., PreserVision AREDS 1 capsule p.o. b.i.d. FAMILY HISTORY: Significant for mother had arthritis, cancer; father had asthma, heart disorder; brother has hypertension; paternal aunt has breast cancer. SOCIAL HISTORY: Quit smoking in 2018, smoked 1 pack a day for 33 years. Alcohol occasionally. No drug use. REVIEW OF SYSTEMS: As per HPI. Rest of review of systems is negative. PHYSICAL EXAMINATION: GENERAL: The patient is of moderate build, not in acute distress. VITAL SIGNS: Temperature 36.9, pulse 99, respiratory rate 18, blood pressure 127/84, oxygen 94% on 5 liters. HEENT: Pupils equal, round and reactive to light. Oral mucosa moist. NECK: No JVD, no neck masses. CARDIOVASCULAR: S1 and S2 heard. Regular rate and rhythm. No murmur, no gallop. RESPIRATORY SYSTEM: Normal AP diameter. No accessory muscle use. Bilateral rhonchi heard. ABDOMEN: Soft, bowel sounds present, nontender, no distention. CENTRAL NERVOUS SYSTEM: Cranial nerves II-XII grossly intact, nonfocal. EXTREMITIES: No edema, no erythema. LABORATORY DATA: WBC 10.9, hemoglobin 15.1, hematocrit 45.3, platelets 281. PT 10.2, INR 1, APTT 31.1. Sodium 133, potassium 4.3, chloride 96, bicarbonate 31, BUN 22, creatinine 1.1, serum glucose 92, calcium 9.4, magnesium 2.1, total bilirubin 0.6, AST 23, ALT 21, alkaline phosphatase 73. Troponin I high sensitivity 7.5. SARS-CoV-2 PCR negative. Influenza A and B PCR negative. RSV PCR negative. IMAGING: Chest x-ray: Cardiomegaly with mild chronic interstitial thickening. No acute process in the chest. ELECTROCARDIOGRAM: Normal sinus rhythm at a rate of 95, possible left atrial enlargement, no acute ST-T changes seen. ASSESSMENT AND PLAN: This is a 72-year-old female with history of chronic obstructive pulmonary disease, presents with shortness of breath and cough. 1. Chronic obstructive pulmonary disease exacerbation: Will treat with Solu- Medrol 40 mg t.i.d., DuoNeb around the clock and p.r.n., p.o. doxycycline. Monitor in the med-telemetry. Monitor for response. Continue home inhalers. 2. Gout: Continue allopurinol. 3. Hyperlipidemia: Continue Zetia and Crestor. 4. Hypothyroidism: Continue Synthroid. 5. Hypertension: On lisinopril. We will monitor the blood pressure. 6. Gastroesophageal reflux disease: On omeprazole as needed. 7. Chronic kidney disease, stage III: Presents with creatinine of 1.1 We will follow the laboratories. 8. Deep venous thrombosis prophylaxis: Lovenox. DISPOSITION: Closely monitor in the med-tele. PT/OT prior to discharge. Social service to help with discharge planning. Job ID: [id number] SEAN
[2022-07-27] MEDS ORDERED: traZODone HCL 100 MG TAB PO STA (02:19)
[2022-07-27] MEDS: methylPREDNISolone 40 MG in SYRINGE 0 ML IV SCH ×3 (02:46→17:08)
[2022-07-27 05:26] LABS: Basophils # (auto) 0.01 K/uL (0-0.2); Basophils % (auto) 0.2 %; Hematocrit (blood only) 41.8 % (34.1-44.9); Hemoglobin 14.1 g/dl (12.0-16.0); Immature Granulocytes # (auto) 0.03 K/uL (0.00-0.02); Immature Granulocytes % (auto) 0.5 %; Lymphocytes # (auto) 1.07 K/uL (1.2-3.4); Lymphocytes % (auto) 18.5 %; Mean Corpuscular Hemoglobin 31.8 pg (25.0-34.0); Mean Corpuscular Hgb Conc 33.7 g/dL (32.0-36.0); Mean Corpuscular Volume 94.4 fL (80.0-100.0); Mean Platelet Volume 10.4 fL (9.4-12.3); Monocytes # (auto) 0.08 K/uL (0.24-0.82); Monocytes % (auto) 1.4 %; Neutrophils % (auto) 79.4 %; Platelet Count 206 K/uL (130-400); RDW Coefficient of Variation 12.7 % (11.5-14.5); RDW Standard Deviation 43.8 fL (36.4-46.3); Red Blood Count 4.43 M/uL (3.93-5.22); White Blood Count 5.79 K/ul (4.8-10.8)
[2022-07-27] MEDS: LEVOTHYROXINE SODIUM 75 MCG TABLET PO SCH (05:27)
[2022-07-27 05:47] LABS: BUN Creatinine Ratio 23.9 (10-20); Creatinine Clr Calc Pharmacy 45.4 ml/min; Est GFR (African American) 56.2 ml/min; Est GFR (Non-African American) 48.5 ml/min; Potassium 4.3 mmol/L (3.5-5.1)
[2022-07-27] MEDS ORDERED: ALBUT/IPRATROP 3MG/0.5MG NEB 3 ML VIAL NEB SCH (07:00)
[2022-07-27] MEDS: ALBUT/IPRATROP 3MG/0.5MG NEB 3 ML VIAL NEB SCH ×5 (07:32→22:41)
[2022-07-27] MEDS: ENOXAPARIN INJ 40 MG/0.4 ML SYR SQ SCH (08:22)
[2022-07-27] MEDS: UMECLIDINIUM BROMIDE 62.5MCG/BLISTER 7 PUFFS/INHALER INH SCH (08:22)
[2022-07-27] MEDS: FLUTICASONE/VILANTEROL 100/25MCG 14 PUFFS/INHALER INH SCH (08:23)
[2022-07-27] MEDS: prednisoLONE acetate 1% OP SUSP 5 ML BTL OP SCH ×3 (08:23→20:12)
[2022-07-27] MEDS: DOXYCYCLINE HYCLATE 100 MG CAP PO SCH ×2 (08:24→20:43)
[2022-07-27] MEDS: ROSUVASTATIN CALCIUM 20 MG TAB PO SCH (08:25)
[2022-07-27] MEDS: ASPIRIN 81 MG ECTAB PO SCH (08:25)
[2022-07-27] MEDS: lisinopril 10 MG TAB PO SCH ×2 (08:25→20:12)
[2022-07-27] MEDS: allopurinoL 100 MG TAB PO SCH (08:25)
[2022-07-27] MEDS: MONTELUKAST SODIUM 10 MG TABLET PO SCH (08:25)
[2022-07-27] MEDS: buPROPion SR 150 MG TABCR PO SCH (08:25)
[2022-07-27] MEDS: VENLAFAXINE HCL XR 150 MG CAPXR PO SCH (08:25)
[2022-07-27] MEDS: EZETIMIBE 10 MG TABLET PO SCH (08:25)
[2022-07-27] MEDS: CALCIUM 600MG + VIT D 400 IU TAB PO SCH (08:25)
--- NOTE | 2022-07-27 11:14 | Electrocardiogram Report ---
Test Reason : Blood Pressure : / mmHG Vent. Rate : 095 BPM Atrial Rate : 095 BPM P-R Int : 158 ms QRS Dur : 080 ms QT Int : 386 ms P-R-T Axes : 044 -07 061 degrees QTc Int : 485 ms Poor data quality, interpretation may be adversely affected Normal sinus rhythm Left atrial enlargement Possible Old Septal infarct Incomplete right bundle branch block Abnormal ECG When compared with ECG of 01-DEC-2017 07:13, Premature atrial complexes are no longer Present Borderline Criteria for Septal infarct is now Present Confirmed by Calos Nuno ([id number]) on 07/27/2022 11:14:08 AM Referred By: Provider Outside Confirmed By:Calos Nuno
--- NOTE | 2022-07-27 11:30 | Hospitalist Progress Note ---
Date of Service July 27, 2022 Assessment & Plan (1) Acute exacerbation of chronic obstructive airways disease: (2) Acute and chronic respiratory failure: Plan: Presents with 2 days of cough and increasing shortness of breath. History of COPD; on home oxygen as needed. Her last PFTs from 2014 showing moderate airway obstruction. Chest x-raychronic interstitial changes; no consolidation present. COVID-19 negative Informed by the nurse that patient's roommate in the hospital tested positive for COVID-19 infection. Patient informed regarding the finding. COVID test ordered. Asked the patient to monitor symptoms for next 10 days. Plan; Continue on duo nebs every 4 hours. Titrate oxygen saturation to 88 to 92% Continue on IV methylprednisolone for today; will change to oral based on response. - Monitor for signs of increasing respiratory distress even exposure to COVID. Patient reports that she had COVID vaccination including the booster. - Continue home inhaler. On doxycycline; will provide 5-day course. - Will need outpatient pulmonology follow-up. Plan Chronic conditions; Gout: Continue allopurinol. Hyperlipidemia: Continue Zetia and Crestor. Hypothyroidism: Continue Synthroid. Hypertension: On lisinopril. We will monitor the blood pressure. Gastroesophageal reflux disease: On omeprazole as needed. Chronic kidney disease, stage III: Presents with creatinine of 1.1 We will follow the laboratories. Deep venous thrombosis prophylaxis: Lovenox. Full code DVT prophylaxis Lovenox Admission and Anticipated Discharge Date Admission Date: July 26, 2022 Subjective Patient seen and examined at bedside. She reports that her shortness of breath has improved compared to presentation. Review of Systems Review of Systems: All systems reviewed & are unremarkable except as noted in Subjective Physical Exam Physical Exam: Constitutional: WD/WN, vitals as above, NAD, sitting up in bed, pleasant, conversing easily Respiratory: Occasional wheeze present bilaterally Cardiovascular: RRR, no murmur, no edema Vessels: no JVD or carotid bruit Chest: normal inspection of chest Abdomen: normal bowel sounds, soft, nontender, no hepatosplenomegaly Musculoskeletal: no cyanosis or clubbing, extremities motor strength 5/5 Skin: no rashes, warm and dry normal turgor Neurologic: PERRL, EOMI, accommodation nl, no face palsy, no dysarthria CN's II- XI intact bilaterally and moves all extremities Psychiatric: A+Ox3, euthymic affect Lymphatic: no cervical or axillary lymphadenopathy : deferred Results & Data Results & Data ([facility]) Vital Signs (Past 12 Hours) Vital Signs Temp Pulse Resp BP Pulse Ox O2 Del Method O2 Flow Rate 07/27/22 11:22 105 H 24 90 Nasal Cannula 4 07/27/22 11:11 36.6 C 102 H 20 143/86 H 93 Nasal Cannula 4 07/27/22 07:20 Nasal Cannula 5 07/27/22 10:30 Nasal Cannula 4 07/27/22 08:03 36.4 C L 96 H 20 165/92 H 92 Nasal Cannula 5 07/27/22 07:32 71 16 93 Nasal Cannula 5 07/27/22 02:35 36.5 C 95 H 18 142/65 H 93 07/26/22 23:46 Nasal Cannula 5 07/26/22 23:32 100 H 18 152/52 H 92 Nasal Cannula 5 Laboratory Results Laboratory Results WBC 5.79 K/ul (4.8-10.8) 07/27/22 05:13 RBC 4.43 M/uL (3.93-5.22) 07/27/22 05:13 Hgb 14.1 g/dl (12.0-16.0) 07/27/22 05:13 Hct 41.8 % (34.1-44.9) 07/27/22 05:13 MCV 94.4 fL (80.0-100.0) 07/27/22 05:13 MCH 31.8 pg (25.0-34.0) 07/27/22 05:13 MCHC 33.7 g/dL (32.0-36.0) 07/27/22 05:13 RDW Std Deviation 43.8 fL (36.4-46.3) 07/27/22 05:13 RDW Coeff of Kevin 12.7 % (11.5-14.5) 07/27/22 05:13 Plt Count 206 K/uL (130-400) 07/27/22 05:13 MPV 10.4 fL (9.4-12.3) 07/27/22 05:13 Immature Gran % (Auto) 0.5 % 07/27/22 05:13 Neut % (Auto) 79.4 % 07/27/22 05:13 Lymph % (Auto) 18.5 % 07/27/22 05:13 [place] % (Auto) 1.4 % 07/27/22 05:13 Eos % (Auto) 0.0 % 07/27/22 05:13 Baso % (Auto) 0.2 % 07/27/22 05:13 Neut # (Auto) 4.60 K/uL (1.4-6.5) 07/27/22 05:13 Lymph # (Auto) 1.07 K/uL (1.2-3.4) L 07/27/22 05:13 [place] # (Auto) 0.08 K/uL (0.24-0.82) L 07/27/22 05:13 Eos # (Auto) 0.00 K/uL (0-0.50) 07/27/22 05:13 Baso # (Auto) 0.01 K/uL (0-0.2) 07/27/22 05:13 Immature Gran # (Auto) 0.03 K/uL (0.00-0.02) H 07/27/22 05:13 PT 10.2 Seconds (9.0-12.0) 07/26/22 16:50 INR 1.0 (0.9-1.1) 07/26/22 16:50 APTT 31.1 Seconds (21.0-31.0) H 07/26/22 16:50 PTT Ratio 1.1 07/26/22 16:50 Sodium 134 mmol/L (136-145) L 07/27/22 05:13 Potassium 4.3 mmol/L (3.5-5.1) 07/27/22 05:13 Chloride 98 mmol/L (98-107) 07/27/22 05:13 Carbon Dioxide 29 mmol/L (21-32) 07/27/22 05:13 Anion Gap 7 (3-11) 07/27/22 05:13 BUN 27 mg/dl (6-23) H 07/27/22 05:13 Creatinine 1.13 mg/dl (0.6-1.2) 07/27/22 05:13 Est Cr Clr Drug Dosing 45.4 ml/min 07/27/22 05:13 Est GFR ( Amer) 56.2 ml/min 07/27/22 05:13 Est GFR (Non-Af Amer) 48.5 ml/min 07/27/22 05:13 BUN/Creatinine Ratio 23.9 (10-20) H 07/27/22 05:13 Glucose 228 mg/dl (70-99(Fasting)) H 07/27/22 05:13 Calcium 9.0 mg/dl (8.5-10.1) 07/27/22 05:13 Magnesium 2.0 mg/dl (1.7-2.4) 07/27/22 05:13 Total Bilirubin 0.6 mg/dl (0.2-1.0) 07/26/22 16:50 AST 23 U/L (13-39) 07/26/22 16:50 ALT 21 U/L (7-52) 07/26/22 16:50 Alkaline Phosphatase 73 U/L (34-104) 07/26/22 16:50 Troponin I High Sens 7.5 pg/ml (0-14) 07/26/22 16:50 Total Protein 7.9 gm/dl (6.0-8.3) 07/26/22 16:50 Albumin 4.6 gm/dl (3.4-5.0) 07/26/22 16:50 Globulin 3.3 gm/dl (2.5-4.0) 07/26/22 16:50 Albumin/Globulin Ratio 1.4 (0.9-2) 07/26/22 16:50 SARS-CoV-2 (PCR) NEGATIVE (Negative) 07/26/22 17:44 Influenza Type A (PCR) Negative (Neg) 07/26/22 17:44 Influenza Type B (PCR) Negative (Neg) 07/26/22 17:44 RSV (RT-PCR) Negative (Neg) 07/26/22 17:44 SARS-CoV-2, RNA, NAAT NEGATIVE (NEGATIVE) 07/27/22 Unknown Impressions Chest X-Ray 07/26/22 16:45 XR chest 1V portable HISTORY: Shortness of breath. COMPARISON: Chest 12/01/2017. FINDINGS: Mild diffuse interstitial thickening which is likely chronic. The cardiac silhouette remains mildly enlarged. No pleural effusions. No pneumothorax. No new focal lung consolidations to suggest a pneumonia. No evidence for pulmonary edema. IMPRESSION: Cardiomegaly with mild chronic interstitial thickening. Otherwise, no acute process within the chest. ACT 112: Negative or not required by law. Electronically signed by: Van Hope M.D. 07/26/2022 5:39 PM
[2022-07-27] MEDS ORDERED: COUGH DROP (SUGAR FREE) LOZ 24 LOZ/1 BOX BUCCAL PRN (19:54)
[2022-07-27] MEDS: traZODone HCL 100 MG TAB PO SCH (20:12)
[2022-07-28] MEDS: methylPREDNISolone 40 MG in SYRINGE 0 ML IV SCH ×3 (02:43→17:08)
[2022-07-28] MEDS: ALBUT/IPRATROP 3MG/0.5MG NEB 3 ML VIAL NEB SCH ×6 (03:23→22:57)
[2022-07-28] MEDS: LEVOTHYROXINE SODIUM 75 MCG TABLET PO SCH (06:28)
[2022-07-28 08:15] LABS: Basophils # (auto) 0.01 K/uL (0-0.2); Basophils % (auto) 0.1 %; Hematocrit (blood only) 41.7 % (34.1-44.9); Hemoglobin 13.6 g/dl (12.0-16.0); Immature Granulocytes # (auto) 0.05 K/uL (0.00-0.02); Immature Granulocytes % (auto) 0.4 %; Lymphocytes # (auto) 1.09 K/uL (1.2-3.4); Lymphocytes % (auto) 8.3 %; Mean Corpuscular Hemoglobin 31.5 pg (25.0-34.0); Mean Corpuscular Hgb Conc 32.6 g/dL (32.0-36.0); Mean Corpuscular Volume 96.5 fL (80.0-100.0); Mean Platelet Volume 10.5 fL (9.4-12.3); Monocytes % (auto) 2.3 %; Neutrophils # (auto) 11.63 K/uL (1.4-6.5); Neutrophils % (auto) 88.9 %; Platelet Count 218 K/uL (130-400); RDW Coefficient of Variation 12.9 % (11.5-14.5); Red Blood Count 4.32 M/uL (3.93-5.22); White Blood Count 13.08 K/ul (4.8-10.8)
[2022-07-28] MEDS: ENOXAPARIN INJ 40 MG/0.4 ML SYR SQ SCH (08:29)
[2022-07-28] MEDS: ASPIRIN 81 MG ECTAB PO SCH (08:29)
[2022-07-28] MEDS: allopurinoL 100 MG TAB PO SCH (08:29)
[2022-07-28] MEDS: lisinopril 10 MG TAB PO SCH ×2 (08:29→20:18)
[2022-07-28] MEDS: buPROPion SR 150 MG TABCR PO SCH (08:29)
[2022-07-28] MEDS: ROSUVASTATIN CALCIUM 20 MG TAB PO SCH (08:29)
[2022-07-28] MEDS: CALCIUM 600MG + VIT D 400 IU TAB PO SCH (08:29)
[2022-07-28] MEDS: MONTELUKAST SODIUM 10 MG TABLET PO SCH (08:29)
[2022-07-28] MEDS: EZETIMIBE 10 MG TABLET PO SCH (08:29)
[2022-07-28] MEDS: VENLAFAXINE HCL XR 150 MG CAPXR PO SCH (08:29)
[2022-07-28] MEDS: prednisoLONE acetate 1% OP SUSP 5 ML BTL OP SCH ×3 (08:30→20:18)
[2022-07-28] MEDS: UMECLIDINIUM BROMIDE 62.5MCG/BLISTER 7 PUFFS/INHALER INH SCH (08:32)
[2022-07-28] MEDS: FLUTICASONE/VILANTEROL 100/25MCG 14 PUFFS/INHALER INH SCH (08:33)
[2022-07-28 09:08] LABS: Calcium 9.2 mg/dl (8.5-10.1); Est GFR (African American) 45.3 ml/min; Est GFR (Non-African American) 39.1 ml/min; Potassium 4.9 mmol/L (3.5-5.1)
[2022-07-28] MEDS: DOXYCYCLINE HYCLATE 100 MG CAP PO SCH ×2 (10:07→20:17)
--- NOTE | 2022-07-28 12:10 | Hospitalist Progress Note ---
Date of Service July 28, 2022 Assessment & Plan (1) Acute exacerbation of chronic obstructive airways disease: (2) Acute and chronic respiratory failure: Plan: Presents with 2 days of cough and increasing shortness of breath. History of COPD; on home oxygen as needed. Her last PFTs from 2014 showing moderate airway obstruction. Chest x-raychronic interstitial changes; no consolidation present. COVID-19 negative Informed by the nurse that patient's roommate in the hospital tested positive for COVID-19 infection on 07/27. Patient informed regarding the finding. COVID test ordered. Asked the patient to monitor symptoms for next 10 days. Plan; Continue on duo nebs every 4 hours. Titrate oxygen saturation to 88 to 92% Continue on IV methylprednisolone 40 mg every 8 hours. We will switch over to prednisone if she shows improvement. - Monitor for signs of increasing respiratory distress even exposure to COVID. As per the policy, exposed patient tested immediately which was done. She is negative. She will have to be retested on 07/31; will remain PUI until then. If discharged prior to that, she will need COVID test at discharge. - Continue home inhaler. On doxycycline; will provide 5-day course. - Will need outpatient pulmonology follow-up. Discussed with case management; will set up primary care follow-up with pulmonology referral. Plan Chronic conditions; Gout: Continue allopurinol. Hyperlipidemia: Continue Zetia and Crestor. Hypothyroidism: Continue Synthroid. Hypertension: On lisinopril. We will monitor the blood pressure. Gastroesophageal reflux disease: On omeprazole as needed. Chronic kidney disease, stage III: Creatinine is 1.3; similar to baseline. Continue monitor. Deep venous thrombosis prophylaxis: Lovenox. Full code DVT prophylaxis Lovenox Admission and Anticipated Discharge Date Admission Date: July 26, 2022 Subjective Patient seen and examined at bedside. She reports that her shortness of breath has improved compared to presentation. She continues to require 3 to 4 L of oxygen presently. Review of Systems Review of Systems: All systems reviewed & are unremarkable except as noted in Subjective Physical Exam Physical Exam: Constitutional: WD/WN, vitals as above, NAD, sitting up in bed, pleasant, conversing easily Respiratory: Bilateral wheeze present. Cardiovascular: RRR, no murmur, no edema Vessels: no JVD or carotid bruit Chest: normal inspection of chest Abdomen: normal bowel sounds, soft, nontender, no hepatosplenomegaly Musculoskeletal: no cyanosis or clubbing, extremities motor strength 5/5 Skin: no rashes, warm and dry normal turgor Neurologic: PERRL, EOMI, accommodation nl, no face palsy, no dysarthria CN's II- XI intact bilaterally and moves all extremities Psychiatric: A+Ox3, euthymic affect Lymphatic: no cervical or axillary lymphadenopathy : deferred Results & Data Results & Data ([facility]) Vital Signs (Past 12 Hours) Vital Signs Temp Pulse Pulse Pulse Resp BP BP 07/28/22 11:46 36.4 C L 97 H 17 143/75 H 07/28/22 11:17 98 H 18 L 07/28/22 08:00 96 H 07/28/22 07:00 07/28/22 07:55 36.5 C 82 19 129/65 07/28/22 07:13 84 16 07/28/22 03:24 84 18 07/28/22 02:43 36.7 C 96 H 18 101/58 L Pulse Ox O2 Del Method O2 Flow Rate 07/28/22 11:46 94 Nasal Cannula 4 07/28/22 11:17 94 Nasal Cannula 4 07/28/22 08:00 07/28/22 07:00 Nasal Cannula 4 07/28/22 07:55 91 Nasal Cannula 3 07/28/22 07:13 93 Nasal Cannula 4 07/28/22 03:24 92 Nasal Cannula 4 07/28/22 02:43 95 Nasal Cannula 4 Laboratory Results Laboratory Results WBC 13.08 K/ul (4.8-10.8) H 07/28/22 07:33 RBC 4.32 M/uL (3.93-5.22) 07/28/22 07:33 Hgb 13.6 g/dl (12.0-16.0) 07/28/22 07:33 Hct 41.7 % (34.1-44.9) 07/28/22 07:33 MCV 96.5 fL (80.0-100.0) 07/28/22 07:33 MCH 31.5 pg (25.0-34.0) 07/28/22 07:33 MCHC 32.6 g/dL (32.0-36.0) 07/28/22 07:33 RDW Std Deviation 46.0 fL (36.4-46.3) 07/28/22 07:33 RDW Coeff of Kevin 12.9 % (11.5-14.5) 07/28/22 07:33 Plt Count 218 K/uL (130-400) 07/28/22 07:33 MPV 10.5 fL (9.4-12.3) 07/28/22 07:33 Immature Gran % (Auto) 0.4 % 07/28/22 07:33 Neut % (Auto) 88.9 % 07/28/22 07:33 Lymph % (Auto) 8.3 % 07/28/22 07:33 [place] % (Auto) 2.3 % 07/28/22 07:33 Eos % (Auto) 0.0 % 07/28/22 07:33 Baso % (Auto) 0.1 % 07/28/22 07:33 Neut # (Auto) 11.63 K/uL (1.4-6.5) H 07/28/22 07:33 Lymph # (Auto) 1.09 K/uL (1.2-3.4) L 07/28/22 07:33 [place] # (Auto) 0.30 K/uL (0.24-0.82) 07/28/22 07:33 Eos # (Auto) 0.00 K/uL (0-0.50) 07/28/22 07:33 Baso # (Auto) 0.01 K/uL (0-0.2) 07/28/22 07:33 Immature Gran # (Auto) 0.05 K/uL (0.00-0.02) H 07/28/22 07:33 PT 10.2 Seconds (9.0-12.0) 07/26/22 16:50 INR 1.0 (0.9-1.1) 07/26/22 16:50 APTT 31.1 Seconds (21.0-31.0) H 07/26/22 16:50 PTT Ratio 1.1 07/26/22 16:50 Sodium 138 mmol/L (136-145) 07/28/22 07:33 Potassium 4.9 mmol/L (3.5-5.1) 07/28/22 07:33 Chloride 104 mmol/L (98-107) 07/28/22 07:33 Carbon Dioxide 28 mmol/L (21-32) 07/28/22 07:33 Anion Gap 6 (3-11) 07/28/22 07:33 BUN 31 mg/dl (6-23) H 07/28/22 07:33 Creatinine 1.35 mg/dl (0.6-1.2) H 07/28/22 07:33 Est Cr Clr Drug Dosing 38.0 ml/min 07/28/22 07:33 Est GFR ( Amer) 45.3 ml/min 07/28/22 07:33 Est GFR (Non-Af Amer) 39.1 ml/min 07/28/22 07:33 BUN/Creatinine Ratio 23.0 (10-20) H 07/28/22 07:33 Glucose 160 mg/dl (70-99(Fasting)) H 07/28/22 07:33 Calcium 9.2 mg/dl (8.5-10.1) 07/28/22 07:33 Magnesium 2.0 mg/dl (1.7-2.4) 07/27/22 05:13 Total Bilirubin 0.6 mg/dl (0.2-1.0) 07/26/22 16:50 AST 23 U/L (13-39) 07/26/22 16:50 ALT 21 U/L (7-52) 07/26/22 16:50 Alkaline Phosphatase 73 U/L (34-104) 07/26/22 16:50 Troponin I High Sens 7.5 pg/ml (0-14) 07/26/22 16:50 Total Protein 7.9 gm/dl (6.0-8.3) 07/26/22 16:50 Albumin 4.6 gm/dl (3.4-5.0) 07/26/22 16:50 Globulin 3.3 gm/dl (2.5-4.0) 07/26/22 16:50 Albumin/Globulin Ratio 1.4 (0.9-2) 07/26/22 16:50 SARS-CoV-2 (PCR) NEGATIVE (Negative) 07/26/22 17:44 Influenza Type A (PCR) Negative (Neg) 07/26/22 17:44 Influenza Type B (PCR) Negative (Neg) 07/26/22 17:44 RSV (RT-PCR) Negative (Neg) 07/26/22 17:44 SARS-CoV-2, RNA, NAAT NEGATIVE (NEGATIVE) 07/27/22 Unknown Impressions Chest X-Ray 07/26/22 16:45 XR chest 1V portable HISTORY: Shortness of breath. COMPARISON: Chest 12/01/2017. FINDINGS: Mild diffuse interstitial thickening which is likely chronic. The cardiac silhouette remains mildly enlarged. No pleural effusions. No pneumothorax. No new focal lung consolidations to suggest a pneumonia. No evidence for pulmonary edema. IMPRESSION: Cardiomegaly with mild chronic interstitial thickening. Otherwise, no acute process within the chest. ACT 112: Negative or not required by law. Electronically signed by: Van Hope M.D. 07/26/2022 5:39 PM
[2022-07-28] MEDS: traZODone HCL 100 MG TAB PO SCH (20:18)
[2022-07-29] MEDS: methylPREDNISolone 40 MG in SYRINGE 0 ML IV SCH ×2 (03:01→11:18)
[2022-07-29] MEDS: ALBUT/IPRATROP 3MG/0.5MG NEB 3 ML VIAL NEB SCH ×6 (03:22→23:10)
[2022-07-29] MEDS: LEVOTHYROXINE SODIUM 75 MCG TABLET PO SCH (06:13)
[2022-07-29 07:07] LABS: Basophils # (auto) 0.01 K/uL (0-0.2); Basophils % (auto) 0.1 %; Hematocrit (blood only) 42.5 % (34.1-44.9); Hemoglobin 13.9 g/dl (12.0-16.0); Immature Granulocytes # (auto) 0.11 K/uL (0.00-0.02); Immature Granulocytes % (auto) 0.9 %; Lymphocytes # (auto) 0.93 K/uL (1.2-3.4); Lymphocytes % (auto) 7.8 %; Mean Corpuscular Hemoglobin 31.7 pg (25.0-34.0); Mean Corpuscular Hgb Conc 32.7 g/dL (32.0-36.0); Mean Corpuscular Volume 96.8 fL (80.0-100.0); Mean Platelet Volume 10.4 fL (9.4-12.3); Monocytes # (auto) 0.45 K/uL (0.24-0.82); Monocytes % (auto) 3.8 %; Neutrophils # (auto) 10.45 K/uL (1.4-6.5); Neutrophils % (auto) 87.4 %; Platelet Count 221 K/uL (130-400); RDW Coefficient of Variation 12.9 % (11.5-14.5); Red Blood Count 4.39 M/uL (3.93-5.22); White Blood Count 11.95 K/ul (4.8-10.8)
[2022-07-29 07:26] LABS: Calcium 9.2 mg/dl (8.5-10.1); Est GFR (African American) 49.3 ml/min; Est GFR (Non-African American) 42.5 ml/min; Potassium 4.5 mmol/L (3.5-5.1)
[2022-07-29] MEDS: CALCIUM 600MG + VIT D 400 IU TAB PO SCH (07:44)
[2022-07-29] MEDS: EZETIMIBE 10 MG TABLET PO SCH (07:44)
[2022-07-29] MEDS: lisinopril 10 MG TAB PO SCH ×2 (07:44→20:22)
[2022-07-29] MEDS: VENLAFAXINE HCL XR 150 MG CAPXR PO SCH (07:44)
[2022-07-29] MEDS: ROSUVASTATIN CALCIUM 20 MG TAB PO SCH (07:44)
[2022-07-29] MEDS: allopurinoL 100 MG TAB PO SCH (07:45)
[2022-07-29] MEDS: UMECLIDINIUM BROMIDE 62.5MCG/BLISTER 7 PUFFS/INHALER INH SCH (07:45)
[2022-07-29] MEDS: FLUTICASONE/VILANTEROL 100/25MCG 14 PUFFS/INHALER INH SCH (07:45)
[2022-07-29] MEDS: MONTELUKAST SODIUM 10 MG TABLET PO SCH (07:45)
[2022-07-29] MEDS: DOXYCYCLINE HYCLATE 100 MG CAP PO SCH ×2 (07:45→20:21)
[2022-07-29] MEDS: ASPIRIN 81 MG ECTAB PO SCH (07:45)
[2022-07-29] MEDS: ENOXAPARIN INJ 40 MG/0.4 ML SYR SQ SCH (07:45)
[2022-07-29] MEDS: buPROPion SR 150 MG TABCR PO SCH (07:45)
[2022-07-29] MEDS: prednisoLONE acetate 1% OP SUSP 5 ML BTL OP SCH ×3 (07:46→20:23)
[2022-07-29] MEDS ORDERED: LABETALOL HCL IV 5 MG/ML 20ML IV PRN (16:32)
--- NOTE | 2022-07-29 16:33 | Hospitalist Progress Note ---
Date of Service July 29, 2022 Assessment & Plan (1) Acute exacerbation of chronic obstructive airways disease: (2) Acute and chronic respiratory failure: Plan: Presents with 2 days of cough and increasing shortness of breath. History of COPD; on home oxygen as needed. Her last PFTs from 2014 showing moderate airway obstruction. Chest x-raychronic interstitial changes; no consolidation present. COVID-19 negative Patient's roommate in the hospital tested positive for COVID-19 infection on 07/27. Patient aware regarding the finding. COVID test ordered/negative. Asked the patient to monitor symptoms for next 10 days. Plan; Continue on duo nebs every 4 hours. Titrate oxygen saturation to 88 to 92% Continue on IV methylprednisolone 40 mg every 12 hours. We will switch over to prednisone if she shows improvement. - Monitor for signs of increasing respiratory distress even exposure to COVID. As per the policy, exposed patient tested immediately which was done. She is negative. She will have to be retested on 07/31; will remain PUI until then. If discharged prior to that, she will need COVID test at discharge. - Continue home inhaler. On doxycycline; will provide 5-day course. - Will need outpatient pulmonology follow-up. Prior attending discussed with case management; will set up primary care follow-up with pulmonology referral. Plan Chronic conditions; Gout: Continue allopurinol. Hyperlipidemia: Continue Zetia and Crestor. Hypothyroidism: Continue Synthroid. Hypertension: On lisinopril. We will monitor the blood pressure. Prn labetalol. Gastroesophageal reflux disease: On omeprazole as needed. Chronic kidney disease, stage III: Creatinine is 1.3; similar to baseline. Continue monitor. Deep venous thrombosis prophylaxis: Lovenox. Full code DVT prophylaxis Lovenox Admission and Anticipated Discharge Date Admission Date: July 26, 2022 Subjective Patient seen and examined at bedside as a follow-up of acute exacerbation of COPD and acute on chronic respiratory failure. Patient was lying in bed, on 3 L nasal cannula oxygen, NAD, reports improving shortness of breath and improving cough with improving sputum. Patient denies any fever/chills/headache/chest pain/palpitations/other review of symptoms. Patient reports eating okay and moving bowels okay. Physical Exam Physical Exam: GENERAL: Alert and oriented x3. NAD, on 3L NC O2. Class I obese. HEENT: No pallor, no icterus. Pupils equal, round and reactive to light. Oral mucosa moist. NECK: No JVD, no neck masses. HEART: S1 and S2 heard. Regular rate and rhythm. No murmur, no gallop. RESPIRATORY SYSTEM: Normal AP diameter. No accessory muscle use. decreased breath sounds, b/l wheezes present. ABDOMEN: Soft, bowel sounds present, nontender, no distention. CENTRAL NERVOUS SYSTEM: No facial droop. Speech is clear. Obeys simple commands. Moves extremities. EXTREMITIES: No edema, no erythema seen. Results & Data Results & Data ([facility]) Vital Signs (Past 12 Hours) Vital Signs Temp Pulse Pulse Resp BP Pulse Ox O2 Del Method 07/29/22 15:39 88 18 95 Nasal Cannula 07/29/22 15:34 36.8 C 98 H 20 158/82 H 95 Nasal Cannula 07/29/22 15:31 102 H 07/29/22 12:22 36.6 C 106 H 22 171/72 H 91 Nasal Cannula 07/29/22 10:54 91 H 18 91 Nasal Cannula 07/29/22 08:00 75 07/29/22 08:00 Nasal Cannula 07/29/22 08:09 88 20 90 Nasal Cannula 07/29/22 07:38 36.4 C L 89 22 143/72 H 90 Nasal Cannula O2 Flow Rate 07/29/22 15:39 4 07/29/22 15:34 4.0 07/29/22 15:31 07/29/22 12:22 07/29/22 10:54 2 07/29/22 08:00 07/29/22 08:00 3 07/29/22 08:09 3 07/29/22 07:38 3
[2022-07-29] MEDS: CEROVITE ADV FORMULA TAB PO SCH (20:21)
[2022-07-29] MEDS: traZODone HCL 100 MG TAB PO SCH (20:22)
[2022-07-29] MEDS ORDERED: methylPREDNISolone 40 MG in SYRINGE 0 ML IV SCH (21:00)
[2022-07-30] MEDS: ALBUT/IPRATROP 3MG/0.5MG NEB 3 ML VIAL NEB SCH ×3 (03:03→11:26)
[2022-07-30] MEDS: LEVOTHYROXINE SODIUM 75 MCG TABLET PO SCH (06:09)
[2022-07-30 07:08] LABS: Hematocrit (blood only) 41.7 % (34.1-44.9); Mean Corpuscular Hemoglobin 31.5 pg (25.0-34.0); Mean Corpuscular Hgb Conc 33.6 g/dL (32.0-36.0); Mean Corpuscular Volume 93.9 fL (80.0-100.0); Mean Platelet Volume 10.7 fL (9.4-12.3); Platelet Count 236 K/uL (130-400); RDW Coefficient of Variation 12.9 % (11.5-14.5); RDW Standard Deviation 44.2 fL (36.4-46.3); Red Blood Count 4.44 M/uL (3.93-5.22); White Blood Count 13.32 K/ul (4.8-10.8)
[2022-07-30 07:32] LABS: BUN Creatinine Ratio 24.3 (10-20); Calcium 9.7 mg/dl (8.5-10.1); Creatinine Clr Calc Pharmacy 48.3 ml/min; Est GFR (African American) 60.1 ml/min; Est GFR (Non-African American) 51.8 ml/min; Magnesium 2.3 mg/dl (1.7-2.4); Potassium 4.4 mmol/L (3.5-5.1)
[2022-07-30] MEDS: buPROPion SR 150 MG TABCR PO SCH (09:00)
[2022-07-30] MEDS ORDERED: methylPREDNISolone 40 MG in SYRINGE 0 ML IV SCH (09:00)
[2022-07-30] MEDS: CALCIUM 600MG + VIT D 400 IU TAB PO SCH (09:00)
[2022-07-30] MEDS: allopurinoL 100 MG TAB PO SCH (09:00)
[2022-07-30] MEDS: ASPIRIN 81 MG ECTAB PO SCH (09:00)
[2022-07-30] MEDS: FLUTICASONE/VILANTEROL 100/25MCG 14 PUFFS/INHALER INH SCH (09:01)
[2022-07-30] MEDS: VENLAFAXINE HCL XR 150 MG CAPXR PO SCH (09:01)
[2022-07-30] MEDS: MONTELUKAST SODIUM 10 MG TABLET PO SCH (09:01)
[2022-07-30] MEDS: EZETIMIBE 10 MG TABLET PO SCH (09:01)
[2022-07-30] MEDS: DOXYCYCLINE HYCLATE 100 MG CAP PO SCH (09:01)
[2022-07-30] MEDS: CEROVITE ADV FORMULA TAB PO SCH (09:01)
[2022-07-30] MEDS: ROSUVASTATIN CALCIUM 20 MG TAB PO SCH (09:01)
[2022-07-30] MEDS: lisinopril 10 MG TAB PO SCH (09:01)
[2022-07-30] MEDS: prednisoLONE acetate 1% OP SUSP 5 ML BTL OP SCH ×2 (09:02→13:29)
[2022-07-30] MEDS: UMECLIDINIUM BROMIDE 62.5MCG/BLISTER 7 PUFFS/INHALER INH SCH (09:02)
[2022-07-30] MEDS: ENOXAPARIN INJ 40 MG/0.4 ML SYR SQ SCH (09:03)
--- NOTE | 2022-07-30 14:03 | Discharge Summary ---
Date of Service July 30, 2022 Admission HPI Per Admitting Provider CHIEF COMPLAINT: Shortness of breath. HISTORY OF PRESENT ILLNESS: A 72-year-old female with past medical history significant for hyperlipidemia, gouty arthropathy, hypothyroidism, history of COPD, seems to be on home oxygen, history of lung nodule, history of hypertension, asymptomatic bilateral carotid artery stenosis, GERD, history of dysphagia, history of chronic kidney disease stage III, rosacea, lichen scl erosus, right modified radical mastoidectomy, presents with shortness of breath. The patient says since last 2 days, she is having like runny nose, congestion kind of feeling. She is not getting better and getting short of breath and cough with whitish phlegm. Denies any fever or chills. No chest pain, no nausea, no vomiting, no abdominal pain. Normal bowel and bladder movements. Appetite is okay. No headache, no blurred visions, no earache, no sore throat. Currently, resting comfortably and hemodynamically stable. ALLERGIES: LEVAQUIN. PAST MEDICAL HISTORY: As mentioned above. PAST SURGICAL HISTORY: Carpal tunnel surgery, colonoscopy with biopsy, revision of eardrum structures. MEDICATIONS: The patient is on allopurinol 100 mg p.o. a.m., aspirin 81 mg p.o. a.m., bupropion 150 mg p.o. a.m., Combivent 1 puff inhalation q.i.d., ezetimibe 10 mg p.o. daily, Advair Diskus 1 inhalation b.i.d., Flonase 2 sprays intranasal daily p.r.n., DuoNeb q.i.d. p.r.n., levothyroxine 75 mcg p.o. daily, lisinopril 10 mg p.o. b.i.d., montelukast 10 mg p.o. a.m., omeprazole 20 mg p.o. daily p.r.n., prednisolone acetate 1 drop ophthalmic t.i.d., Premarin 1 dose vaginally 2 times a week, rosuvastatin 40 mg p.o. daily, Spiriva inhaler 1 capsule inhalation daily, trazodone 100 mg p.o. at bedtime, triamcinolone 1 application topically 2 times a week, Effexor XR 300 mg p.o. a.m., PreserVision AREDS 1 capsule p.o. b.i.d. FAMILY HISTORY: Significant for mother had arthritis, cancer; father had asthma, heart disorder; brother has hypertension; paternal aunt has breast cancer. SOCIAL HISTORY: Quit smoking in 2018, smoked 1 pack a day for 33 years. Alcohol occasionally. No drug use. REVIEW OF SYSTEMS: As per HPI. Rest of review of systems is negative. Admission Exam Per Admitting Provider GENERAL: The patient is of moderate build, not in acute distress. VITAL SIGNS: Temperature 36.9, pulse 99, respiratory rate 18, blood pressure 127/84, oxygen 94% on 5 liters. HEENT: Pupils equal, round and reactive to light. Oral mucosa moist. NECK: No JVD, no neck masses. CARDIOVASCULAR: S1 and S2 heard. Regular rate and rhythm. No murmur, no gallop. RESPIRATORY SYSTEM: Normal AP diameter. No accessory muscle use. Bilateral rhonchi heard. ABDOMEN: Soft, bowel sounds present, nontender, no distention. CENTRAL NERVOUS SYSTEM: Cranial nerves II-XII grossly intact, nonfocal. EXTREMITIES: No edema, no erythema. Principal Diagnosis Acute exacerbation of COPD Acute on chronic respiratory failure Discharge Exam GENERAL: Alert and oriented x3. NAD, on 2L NC O2. Class I obese. HEENT: No pallor, no icterus. Pupils equal, round and reactive to light. Oral mucosa moist. NECK: No JVD, no neck masses. HEART: S1 and S2 heard. Regular rate and rhythm. No murmur, no gallop. RESPIRATORY SYSTEM: Normal AP diameter. No accessory muscle use. decreased breath sounds, no wheezes present. ABDOMEN: Soft, bowel sounds present, nontender, no distention. CENTRAL NERVOUS SYSTEM: No facial droop. Speech is clear. Obeys simple commands. Moves extremities. EXTREMITIES: No edema, no erythema seen. Discharge Data Allergies Allergy/AdvReac Type Severity Reaction Status Date / Time levofloxacin AdvReac Intermediate Immediate Verified 07/26/22 21:57 Itchy Rash at IV site on administration Consultations 07/26/22 19:53 ED Decision to Admit Stat Hospital Course (1) Acute exacerbation of chronic obstructive airways disease: (2) Acute and chronic respiratory failure: Presents with 2 days of cough and increasing shortness of breath. History of COPD; on home oxygen as needed. Her last PFTs from 2014 showing moderate airway obstruction. Chest x-raychronic interstitial changes; no consolidation present. COVID-19 negative, repeat test sent prior to discharge, pending. Pt reporting feeling better, more active wo associated sob, cough minimal. Patient's roommate in the hospital tested positive for COVID-19 infection on 07/27. Patient aware regarding the finding. COVID test ordered/negative. Asked the patient to monitor symptoms for next 10 days. Plan; Continue with inhalers as prior. Titrate oxygen saturation to 88 to 92% PO prednisone for 6 days tapering dose upon dc. - COVID test prior to dc - Continue home inhaler. On doxycycline; will provide 5-day course. - Will need outpatient pulmonology follow-up. Prior attending discussed with case management--> will set up primary care follow-up with pulmonology referral. Plan Chronic conditions; Gout: Continue allopurinol. Hyperlipidemia: Continue Zetia and Crestor. Hypothyroidism: Continue Synthroid. Hypertension: On lisinopril. We will monitor the blood pressure. Prn labetalol. Gastroesophageal reflux disease: On omeprazole as needed. Chronic kidney disease, stage III: Creatinine is 1.3; similar to baseline. Continue monitor. Deep venous thrombosis prophylaxis: Lovenox. Full code DVT prophylaxis Lovenox Patient being discharged home with following instruction at the point of discharge: Follow-up with your primary care physician within a week time and likely you will need blood test CBC and CMP. You will need to establish pulmonology doctor as an outpatient, likely you will need pulmonary function test in 4 to 6 weeks time. You will be starting your tapering dose of steroid from tomorrow morning, 40 mg prednisone daily for 3 days followed by 20 mg prednisone daily for 3 days and then stop. Take your medications as prescribed. Please make sure that you are able to get your medications today by calling your pharmacy before you leave the hospital so that your treatment continuity is not broken. Home Health Attestation I certify that this patient is under my care and that I, or a physicians him assistant working with me, had a face to-face encounter that meets the [facility] [id number] encounter requirements with this patient. The encounter with the patient was in whole, or in part, for the following medical condition, which is the primary reason for home health care (list medical condition): I certify that, based on my findings, the following services are medically necessary home health services: My clinical findings support the need for the above services because: Further, I certify that my clinical findings support that this patient is homebound (i.e. absences from home require considerable and taxing effort and are for medical reasons or denominational services or infrequently or of short duration when for other reasons) because: Certification for Home Health Services: Based on the above findings, I certify that this patient is confined to the home and needs intermittent residential care, physical therapy and/or speech therapy or continues to need occupational therapy. The patient is under my care, and I have initiated the establishment of the plan of care. This patient will be followed by a physician who will periodically review the plan of care. Total Time Total Time Spent Total Time Spent (In Minutes): 45 Discharge Plan Discharge Items Patient Disposition: Home - Self-Care Reason For Visit: SOB Discharge Diagnosis: Acute exacerbation of COPD Acute on chronic respiratory failure Activity: Resume your previous activity Non-emergency contact: Primary Care Provider Call non-emergency contact if: you have any medication questions Follow-up/Referrals: Janae Elam MD [Primary Care Provider] - (Date & Time 08/05/2022 11:00 AM Provider Janae Elam MD Department General Internal Medicine [facility] ) Diet: Heart Healthy Addtl Attending Provider Instructions: Follow-up with your primary care physician within a week time and likely you will need blood test CBC and CMP. You will need to establish pulmonology doctor as an outpatient, likely you will need pulmonary function test in 4 to 6 weeks time. You will be starting your tapering dose of steroid from tomorrow morning, 40 mg prednisone daily for 3 days followed by 20 mg prednisone daily for 3 days and then stop. Take your medications as prescribed. Please make sure that you are able to get your medications today by calling your pharmacy before you leave the hospital so that your treatment continuity is not broken. Pending Studies at Discharge: No Stand-Alone Forms: My [facility] [employer], Smoking Cessation Medications and DC Order Prescriptions: New doxycycline hyclate 100 mg Capsule 100 mg PO BID 3 Days Qty: 6 0RF prednisone 20 mg tablet 20 mg PO .complex 6 Days Qty: 9 0RF Rx Instructions: 40 mg (2 tabs) daily for 3 days, then 20 mg (1 tab) daily for 3 days, then stop. Continued ICaps AREDS [id number] capsule 1 cap PO BID silver sulfadiazine [Silvadene] 1 % Cream 1 applic TOPICAL DAILY PRN (Reason: Rash) bupropion HCl 150 mg Tablet Sustained-Release 12 Hr 150 mg PO QAM fluticasone propion-salmeterol [Advair Diskus] 250-50 mcg/dose Blister With Device 1 inh INHALATION BID nystatin 100,000 unit/mL Suspension 5 ml PO QID PRN (Reason: thrush) ipratropium-albuterol 0.5 mg-3 mg(2.5 mg base)/3 mL Solution For Nebulization 3 ml INHALATION QID PRN (Reason: Shortness Of Breath) clobetasol 0.05 % Cream 1 applic TOPICAL HS venlafaxine [Effexor XR] 150 mg Capsule,Extended Release 24hr 300 mg PO QAM allopurinol 100 mg Tablet 100 mg PO QAM aspirin [Jeremias Low Dose Aspirin] 81 mg Tablet,Delayed Release (Dr/Ec) 81 mg PO QAM trazodone 100 mg Tablet 100 mg PO HS Premarin 0.625 mg/gram Cream 1 dose Vaginal 2XWK triamcinolone acetonide 0.1 % Ointment 1 applic TOPICAL 2XWK montelukast 10 mg Tablet 10 mg PO QAM fluticasone propionate [Flonase Allergy Relief] 50 mcg/actuation [place],Suspension 2 spray INTRANASAL DAILY PRN (Reason: Allergy Symptoms) metronidazole 0.75 % Gel 1 applic TOPICAL BID Spiriva with HandiHaler 18 mcg Capsule, W/Inhalation Device 1 cap INHALATION QAM calcium carbonate-vitamin D3 600 mg(1,500mg) -400 unit Tablet 1 tab PO QAM omeprazole 20 mg Tablet,Delayed Release (Dr/Ec) 20 mg PO DAILY PRN (Reason: Acid Reflux) Combivent Respimat 20-100 mcg/actuation Mist 1 puff INHALATION QID levothyroxine 75 mcg tablet 75 mcg PO DAILY prednisolone acetate 1 % drops,suspension 1 drp ophthalmic (eye) TID lisinopril 10 mg tablet 10 mg PO BID ezetimibe 10 mg tablet 10 mg PO DAILY rosuvastatin 40 mg tablet 40 mg PO DAILY Discharge Orders: Discharge Order (Routine); Ordered 07/30/22 Ordered By: Arlene Lloyd Admission Data Admit Date/Time: 07/26/22 21:09 Attending Provider: Arlene Lloyd Admit Provider: Nikolay Torres Primary Care Provider: Janae Elam Other Providers: Nikolay Torres
[2022-07-30] MEDS ORDERED: ALBUT/IPRATROP 3MG/0.5MG NEB 3 ML VIAL NEB SCH (15:00)
--- NOTE | 2022-08-06 13:52 | Coding Query ---
PRESENT ON ADMISSION QUERY To promote full compliance with coding requirements relating to pateint care, physician participation is requested in all cases of professional fee coder uncertainty. Please assist us with the question(s) below: Please place an X within the parenthesis (x). The following diagnosis listed in this patient's medical record require physician assistance to determine if they were present on admission (POA) or not. Please advise for each diagnosis whether it was present on admission, not present on admission, or if it was clinically undetermined. 1. ACUTE RESPIRATORY FAILURE - (acute on chronic respiratory failure is documented from 07/27 Progress Note to Discharge Summary) (x) Present On Admission. Please Specify further, in your clinical opinion, the most likely cause of the Acute Respiratory Failure: ( ) COPD Exacerbation (x ) Other: Please Specify (1) Acute exacerbation of chronic obstructive airways disease:_from the DC summary note. ( ) Unknown ( ) Not Present On Admission ( ) Clinically Undetermined Thank you Jayde Powell *Definition of the present on admission (POA)-Present on admission is defined as present at the time the order for inpatient admission occurs. Conditions that develop during an outpatient encounter prior to a written order for inpatient admission (including emergency department, observation, or outpatient surgery) are considered present on admission. SEAN
== END 2022-07-30 16:09 | disposition home or self-care (01) | DRG 190 ==
LOC: ED 16:37 → 2N 21:09 → SUATTDRO 21:09 → 2N 21:42 → 2S 07-27 10:33